=== PATIENT | female | born 1955 | race Caucasian/White ===

== ENCOUNTER 2023-03-31 22:57 | Inpatient (IN) ==
[2023-03-31] MEDS ORDERED: SODIUM CHLORIDE 0.9% 500 ML IV ONE (23:12)
[2023-03-31 23:39] LABS: Hematocrit (blood only) 41.4 % (37.0-47.0); Hemoglobin 14.1 g/dl (12.0-16.0); Mean Corpuscular Hemoglobin 30.6 pg (25.0-34.0); Mean Corpuscular Hgb Conc 34.1 g/dL (32.0-36.0); Mean Corpuscular Volume 89.8 fL (80.0-100.0); Mean Platelet Volume 9.8 fL (9.4-12.4); Platelet Count 295 K/uL (130-400); RDW Coefficient of Variation 12.3 % (11.5-14.5); RDW Standard Deviation 40.7 fL (36.4-46.3); Red Blood Count 4.61 M/uL (4.20-5.40)
[2023-03-31 23:46] LABS: Albumin Globulin Ratio 1.2 (0.9-2); Albumin Level 4.5 gm/dl (3.4-5.0); Bilirubin,Total 0.6 mg/dl (0.2-1.0); Calcium 9.4 mg/dl (8.6-10.3); Creatinine Clr Calc Pharmacy 64.8 ml/min; Est GFR (African American) 106.1 ml/min; Est GFR (Non-African American) 91.5 ml/min; Globulin 3.7 gm/dl (2.5-4.0); Magnesium 1.7 mg/dl (1.7-2.4); Potassium 3.4 mmol/L (3.5-5.1); Total Protein 8.2 gm/dl (6.0-8.3)
[2023-03-31 23:56] LABS: Partial Thromboplastin Ratio 0.9; Partial Thromboplastin Time 26.5 Seconds (21.0-31.0); Prothrombin Time 11.1 Seconds (9.0-12.0)
--- NOTE | 2023-04-01 00:10 | CT Scan Report ---
Exam(s): CT HEAD Without Contrast EXAM: CT Head Without Intravenous Contrast CLINICAL HISTORY: Reason for exam: ams last normal 0700. TECHNIQUE: Axial computed tomography images of the head/brain without intravenous contrast. CTDI is 35.92 mGy and DLP is 547.75 mGy-cm. Automated exposure control was utilized for the study. A dose lowering technique was utilized adhering to the principles of ALARA. COMPARISON: Comparison made to prior head CT from March 11, 2013. FINDINGS: Brain: Unremarkable. No hemorrhage. Mild to moderate nonspecific white matter changes. No edema. Ventricles: Unremarkable. No ventriculomegaly. Bones/joints: Unremarkable. No acute fracture. Soft tissues: Unremarkable. Sinuses: Unremarkable as visualized. No acute sinusitis. Mastoid air cells: Unremarkable as visualized. No mastoid effusion. IMPRESSION: No evidence of acute intracranial pathology. Communications: Call Doctor Stroke Electronically signed by: Jie Rosa MD 04/01/23 00:09 AM
[2023-04-01 00:15] LABS: Appearance Urine Cloudy (Clear); Bacteria Urine Automated Negative (Negative); Bilirubin Urine Negative (Negative); Blood Urine Trace (Negative); Cast Urine Automated 0 /lpf (0-5); Color Urine Yellow; Epithelial Cell Urine Auto 0-5 /lpf (0-5); Glucose Urine UA Trace (Negative); Ketones Urine 1+ (Negative); Leukocyte Esterase Urine Negative (Negative); Nitrite Urine Negative (Negative); Specific Gravity Urine 1.016 (1.000-1.030); Urobilinogen Urine Negative (Negative); WBC Urine Automated 0 /hpf (0-5)
[2023-04-01] MEDS ORDERED: ONDANSETRON INJ 2 MG/ML 2 ML VIAL ONE (00:15)
--- NOTE | 2023-04-01 00:16 | CT Scan Report ---
Exam(s): CTA HEAD With Contrast IV Amt: 120 ml EXAM: CT Angiography Head With Intravenous Contrast CLINICAL HISTORY: Reason for exam: ams weakness last normal 0700. TECHNIQUE: Axial computed tomographic angiography images of the head with intravenous contrast. CTDI is 20.76 mGy and DLP is 381.63 mGy-cm. Automated exposure control was utilized for the study. A dose lowering technique was utilized adhering to the principles of ALARA. MIP reconstructed images were created and reviewed. CONTRAST: Patient received 120 ml of IV contrast COMPARISON: No relevant prior studies available. FINDINGS: Right internal carotid artery: No acute findings. Intracranial segment is patent with no significant stenosis. No aneurysm. Right anterior cerebral artery: Unremarkable. No occlusion or significant stenosis. No aneurysm. Right middle cerebral artery: Unremarkable. No occlusion or significant stenosis. No aneurysm. Right posterior cerebral artery: Unremarkable. No occlusion or significant stenosis. No aneurysm. Right vertebral artery: Unremarkable as visualized. Left internal carotid artery: No acute findings. Intracranial segment is patent with no significant stenosis. No aneurysm. Left anterior cerebral artery: Unremarkable. No occlusion or significant stenosis. No aneurysm. Left middle cerebral artery: Unremarkable. No occlusion or significant stenosis. No aneurysm. Left posterior cerebral artery: Unremarkable. No occlusion or significant stenosis. No aneurysm. Left vertebral artery: Unremarkable as visualized. Basilar artery: Unremarkable. No occlusion or significant stenosis. No aneurysm. IMPRESSION: Negative CT angiogram of the head. Communications: Call Doctor Stroke Electronically signed by: Jie Rosa MD 04/01/23 00:15 AM
--- NOTE | 2023-04-01 00:19 | CT Scan Report ---
Exam(s): CTA NECK With Contrast IV Amt: 120 ml EXAM: CT Angiography Neck With Intravenous Contrast CLINICAL HISTORY: Reason for exam: ams weakness last normal 0700. TECHNIQUE: Routine carotid CT angiography protocol was performed with intravenous contrast. NASCET criteria using the distal ICAs for comparison were used for evaluation of stenoses. CTDI is 20.76 mGy and DLP is 381.63 mGy-cm. Automated exposure control was utilized for the study. A dose lowering technique was utilized adhering to the principles of ALARA. MIP reconstructed images were created and reviewed. CONTRAST: Patient received 120 ml of IV contrast COMPARISON: None. FINDINGS: VASCULATURE: Right common carotid artery: Unremarkable. No occlusion or significant stenosis. No dissection. Right internal carotid artery: Unremarkable. Extracranial segment is patent with no occlusion or significant stenosis. No dissection. Right external carotid artery: Unremarkable. No occlusion. Right vertebral artery: Unremarkable. No occlusion or significant stenosis. No dissection. Left common carotid artery: Unremarkable. No occlusion or significant stenosis. No dissection. Left internal carotid artery: Unremarkable. Extracranial segment is patent with no occlusion or significant stenosis. No dissection. Left external carotid artery: Unremarkable. No occlusion. Left vertebral artery: Unremarkable. No occlusion or significant stenosis. No dissection. NECK: Bones/joints: Moderate disc degeneration at this C3-4, C4-5 and C5-6. Soft tissues: Unremarkable. Lung apices: Clear. CAROTID STENOSIS REFERENCE USING NASCET CRITERIA: % ICA stenosis = (1 - narrowest ICA diameter/diameter of distal cervical ICA) x 100. Mild - <50% stenosis. Moderate - 50-69% stenosis. Severe - 70-94% stenosis. Near occlusion - 95-99% stenosis. Occluded - 100% stenosis. IMPRESSION: Negative CTA neck. Communications: Call Doctor Stroke Electronically signed by: Jie Rosa MD 04/01/23 00:18 AM
[2023-04-01 00:27] LABS: Base Excess VBG 3.6 mEq/L; HCO3 VBG 30 mmol/L; Oxygen Saturation VBG < 60.0 %; PCO2 VBG 52 mmHg (38-50); PO2 VBG 27 mmHg; pH VBG 7.37 (7.36-7.41)
[2023-04-01 00:47] LABS: Protein Urine 2+ (Negative)
[2023-04-01 00:54] LABS: Creatine Kinase 173 U/L (26-192); Lipase 46 U/L (11-82)
[2023-04-01 01:04] LABS: Adenovirus PCR Not Detected (NotDetected); Bordetella parapertussis PCR Not Detected (NotDetected); Bordetella pertussis PCR Not Detected (NotDetected); Chlamydia pneumoniae PCR Not Detected (NotDetected); Coronavirus 229E PCR Not Detected (NotDetected); Coronavirus CoV-2 (COVID19)PCR Not Detected (NotDetected); Coronavirus HKU1 PCR Not Detected (NotDetected); Coronavirus NL63 PCR Not Detected (NotDetected); Coronavirus OC43PCR Not Detected (NotDetected); Human Metapneumovirus PCR Not Detected (NotDetected); Influenza A PCR Not Detected (NotDetected); Influenza B PCR Not Detected (NotDetected); Mycoplasma pneumoniae PCR Not Detected (NotDetected); Parainfluenza Virus 1 PCR Not Detected (NotDetected); Parainfluenza Virus 2 PCR Not Detected (NotDetected); Parainfluenza Virus 3 PCR Not Detected (NotDetected); Parainfluenza Virus 4 PCR Not Detected (NotDetected); Respiratory Syncytial VirusPCR Not Detected (NotDetected); Rhinovirus/Enterovirus PCR Not Detected (NotDetected)
[2023-04-01 01:13] LABS: Procalcitonin < 0.05 ng/ml (0-0.5)
[2023-04-01 01:20] LABS: Lyme Ab IgG w/WB Rflx Negative (Negative); Lyme Ab IgM w/WB Rflx Negative (Negative)
[2023-04-01] MEDS ORDERED: ACETAMINOPHEN 1,000 MG/100 ML VIAL IV STA (01:24)
[2023-04-01] MEDS ORDERED: SODIUM CHLORIDE 0.9% 1000ML 1,000 ML IV ONE (01:24)
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
[2023-04-01] MEDS ORDERED: LIDOCAINE 1%/EPINEPHRINE 1:100,000 20 ML VIAL ONE (01:34)
[2023-04-01] MEDS ORDERED: MoRPHine SULFATE 4 MG/ML 1 ML CARP\\VIAL ONE (01:34)
[2023-04-01] MEDS ORDERED: MoRPHine SULFATE 4 MG/ML 1 ML CARP\\VIAL IV STA (01:37)
[2023-04-01] MEDS ORDERED: NSS + 20MEQ KCL 20 MEQ/1,000 ML BAG IV STA (02:07)
[2023-04-01] MEDS ORDERED: ASPIRIN 300 MG SUPP PR STA (03:08)
[2023-04-01] MEDS: MAGNESIUM SULFATE / D5W 1 GM/100 ML BAG IV SCH ×2 (03:13→06:09)
--- NOTE | 2023-04-01 03:35 | History & Physical Report ---
Date of Service April 01, 2023 Assessment & Plan (1) Left-sided weakness: Plan: Concern for CVA Hypertensive crisis secondary to above Hyperglycemia rule out DM PCU Neurochecks Aspirin for secondary stroke prevention MRI brain Re: Left-sided weakness and headache Permissive hypertension until acute stroke ruled out Neurology consult Re: Left-sided weakness (ER provider already in touch with Dr. Boyd who recommends stroke work-up. Patient may need LP/infectious work-up if MRI negative for stroke as per recommendations.) Check hemoglobin A1c DVT prophylaxis with Lovenox subcu Full code Text document was generated using [employer] voice recognition software. It may contain grammatical or spelling errors. Kindly contact undersigned for clarification of any documentation item in question. History of Present Illness Chief Complaint: Confusion, left-sided weakness Primary Care Provider: NO PCP No significant medical history. History obtained from patient, family, and records. Limited history from patient secondary to confusion. No significant medical history. Patient found by at home around 5 PM yesterday looked confused. Patient had trouble speaking and difficulty moving the left side of her body. Right-sided headache/neck pain. No fever, no chills. Patient denies chest pain, SOB. No witnessed seizures or obvious tongue trauma or urinary incontinence. Not sure about tick bites but patient was working in the [place]. Patient brought to the ER for evaluation. Medical History as above Surgical History : None Family History : DM Personal/Social history : Non-smoker, no EtOH intake, [employer] homemaker Allergies Allergy/AdvReac Type Severity Reaction Status Date / Time No Known Allergies Allergy Verified 04/01/23 01:23 Home Medications Medication Instructions Recorded Confirmed Type No Known Home Medications 04/01/23 04/01/23 History Past Med/Surg History Social History Smoking Status: Never smoker Hx Alcohol Use: No Hx Substance Use: No Preferred Language: [place] [employer] Required: No Current Living Situation: Spouse Feels Safe at Home: Yes Review of Systems Review of Systems: Could not be reliably obtained secondary to disorientation Physical Exam Physical Exam: GENERAL: Uncomfortable, disoriented, underweight, dysarthric, no respiratory distress SKIN: Normal color, warm HEENT: [place] palpebral conjunctivae, no ptosis, dry buccal mucosa NECK : Supple, no tenderness CHEST : CTA, no tenderness HEART : RRR, no obvious murmurs ABDOMEN: no distention, nontender EXTREMITIES : No LE swelling/tenderness, no other conspicuous deformities noted NEUROLOGIC : Disoriented, no facial asymmetry, MMTS RUE/RLE 4/5, LUE 1/5, LLE 3/5, gait and stance not assessed Results & Data Results & Data Vital Signs (Past 12 Hours) Vital Signs Temp Pulse Pulse Resp BP Pulse Ox O2 Del Method 04/01/23 01:42 87 18 178/102 H 97 Room Air 04/01/23 01:00 101 H 18 04/01/23 00:33 86 21 168/90 H 97 Room Air 04/01/23 00:30 82 22 97 Room Air 04/01/23 00:02 94 H 24 175/114 H 04/01/23 00:22 37.4 C 03/31/23 23:25 84 95 Room Air 03/31/23 23:09 116 H 03/31/23 23:14 36.8 C 118 H 22 183/125 H 93 Room Air Laboratory Results Laboratory Results WBC 17.00 K/ul (4.8-10.8) H 03/31/23 23:05 RBC 4.61 M/uL (4.20-5.40) 03/31/23 23:05 Hgb 14.1 g/dl (12.0-16.0) 03/31/23 23:05 Hct 41.4 % (37.0-47.0) 03/31/23 23:05 MCV 89.8 fL (80.0-100.0) 03/31/23 23:05 MCH 30.6 pg (25.0-34.0) 03/31/23 23:05 MCHC 34.1 g/dL (32.0-36.0) 03/31/23 23:05 RDW Std Deviation 40.7 fL (36.4-46.3) 03/31/23 23:05 RDW Coeff of Alyssa 12.3 % (11.5-14.5) 03/31/23 23:05 Plt Count 295 K/uL (130-400) 03/31/23 23:05 MPV 9.8 fL (9.4-12.4) 03/31/23 23:05 PT 11.1 Seconds (9.0-12.0) 03/31/23 23:05 INR 1.0 (0.9-1.1) 03/31/23 23:05 APTT 26.5 Seconds (21.0-31.0) 03/31/23 23:05 PTT Ratio 0.9 03/31/23 23:05 VBG pH 7.37 (7.36-7.41) 04/01/23 00:15 VBG pCO2 52 mmHg (38-50) H 04/01/23 00:15 VBG pO2 27 mmHg 04/01/23 00:15 VBG HCO3 30 mmol/L 04/01/23 00:15 VBG O2 Saturation < 60.0 % 04/01/23 00:15 VBG Base Excess 3.6 mEq/L 04/01/23 00:15 Sodium 129 mmol/L (136-145) L 03/31/23 23:05 Potassium 3.4 mmol/L (3.5-5.1) L 03/31/23 23:05 Chloride 92 mmol/L (98-107) L 03/31/23 23:05 Carbon Dioxide 26 mmol/L (21-32) 03/31/23 23:05 Anion Gap 11 (3-11) 03/31/23 23:05 BUN 12 mg/dl (6-23) 03/31/23 23:05 Creatinine 0.63 mg/dl (0.6-1.2) 03/31/23 23:05 Est Cr Clr Drug Dosing 64.8 ml/min 03/31/23 23:05 Est GFR ( Amer) 106.1 ml/min 03/31/23 23:05 Est GFR (Non-Af Amer) 91.5 ml/min 03/31/23 23:05 BUN/Creatinine Ratio 19.0 (10-20) 03/31/23 23:05 Glucose 183 mg/dl (70-99(Fasting)) H 03/31/23 23:05 Lactate 1.9 mmol/L (0.4-2.0) 04/01/23 02:19 Calcium 9.4 mg/dl (8.6-10.3) 03/31/23 23:05 Magnesium 1.7 mg/dl (1.7-2.4) 03/31/23 23:05 Total Bilirubin 0.6 mg/dl (0.2-1.0) 03/31/23 23:05 AST 26 U/L (13-39) 03/31/23 23:05 ALT 17 U/L (7-52) 03/31/23 23:05 Alkaline Phosphatase 72 U/L (34-104) 03/31/23 23:05 Ammonia 14.0 umol/L (18-72) L 04/01/23 00:15 Total Creatine Kinase 173 U/L (26-192) 04/01/23 00:17 Total Creatine Kinase Cancelled 04/01/23 00:17 Total Protein 8.2 gm/dl (6.0-8.3) 03/31/23 23:05 Albumin 4.5 gm/dl (3.4-5.0) 03/31/23 23:05 Globulin 3.7 gm/dl (2.5-4.0) 03/31/23 23:05 Albumin/Globulin Ratio 1.2 (0.9-2) 03/31/23 23:05 Lipase 46 U/L (11-82) 04/01/23 00:17 Procalcitonin < 0.05 ng/ml (0-0.5) 04/01/23 00:05 TSH 0.718 uIu/ml (0.300-4.500) 04/01/23 02:14 Prolactin 11.53 ng/ml 03/31/23 23:05 Urine Color Yellow 04/01/23 00:00 Urine Appearance Cloudy (Clear) A 04/01/23 00:00 Urine pH 8.0 (4.5-7.5) H 04/01/23 00:00 Ur Specific [place] 1.016 (1.000-1.030) 04/01/23 00:00 Urine Protein 2+ (Negative) H 04/01/23 00:00 Urine Glucose (UA) Trace (Negative) H 04/01/23 00:00 Urine Ketones 1+ (Negative) H 04/01/23 00:00 Urine Blood Trace (Negative) H 04/01/23 00:00 Urine Nitrite Negative (Negative) 04/01/23 00:00 Urine Bilirubin Negative (Negative) 04/01/23 00:00 Urine Urobilinogen Negative (Negative) 04/01/23 00:00 Ur Leukocyte Esterase Negative (Negative) 04/01/23 00:00 Urine WBC (Auto) 0 /hpf (0-5) 04/01/23 00:00 Urine RBC (Auto) 5-10 /hpf (0-4) H 04/01/23 00:00 U Hyaline Cast (Auto) 0 /lpf (0-5) 04/01/23 00:00 U Epithel Cells (Auto) 0-5 /lpf (0-5) 04/01/23 00:00 Urine Bacteria (Auto) Negative (Negative) 04/01/23 00:00 Adenovirus (PCR) Not Detected (NotDetected) 04/01/23 00:05 Anaplasma Smear See Comment 03/31/23 23:05 Babesia Smear See Comment 03/31/23 23:05 B. pertussis DNA (PCR) Not Detected (NotDetected) 04/01/23 00:05 B.parapertussis DNA PCR Not Detected (NotDetected) 04/01/23 00:05 Lyme Disease IgG Ab Negative (Negative) 04/01/23 00:05 Lyme Disease IgM Ab Negative (Negative) 04/01/23 00:05 C. pneumoniae DNA (PCR) Not Detected (NotDetected) 04/01/23 00:05 Coronavirus OC43 (PCR) Not Detected (NotDetected) 04/01/23 00:05 Coronavirus HKU1 (PCR) Not Detected (NotDetected) 04/01/23 00:05 Coronavirus 229E (PCR) Not Detected (NotDetected) 04/01/23 00:05 SARS-CoV-2 (PCR) Not Detected (NotDetected) 04/01/23 00:05 Coronavirus NL63 (PCR) Not Detected (NotDetected) 04/01/23 00:05 Human Metapneumovir PCR Not Detected (NotDetected) 04/01/23 00:05 Influenza Type A (PCR) Not Detected (NotDetected) 04/01/23 00:05 Influenza Type B (PCR) Not Detected (NotDetected) 04/01/23 00:05 M. pneumoniae (PCR) Not Detected (NotDetected) 04/01/23 00:05 Parainfluenza 1 (PCR) Not Detected (NotDetected) 04/01/23 00:05 Parainfluenza 2 (PCR) Not Detected (NotDetected) 04/01/23 00:05 Parainfluenza 3 (PCR) Not Detected (NotDetected) 04/01/23 00:05 Parainfluenza 4 (PCR) Not Detected (NotDetected) 04/01/23 00:05 RSV (PCR) Not Detected (NotDetected) 04/01/23 00:05 Entero/Rhino (PCR) Not Detected (NotDetected) 04/01/23 00:[address] 03/31/23 23:26 CR Exam(s): CT HEAD Without Contrast EXAM: CT Head Without Intravenous Contrast CLINICAL HISTORY: Reason for exam: ams last normal 0700. TECHNIQUE: Axial computed tomography images of the head/brain without intravenous contrast. CTDI is 35.92 mGy and DLP is 547.75 mGy-cm. Automated exposure control was utilized for the study. A dose lowering technique was utilized adhering to the principles of ALARA. COMPARISON: Comparison made to prior head CT from March 11, 2013. FINDINGS: Brain: Unremarkable. No hemorrhage. Mild to moderate nonspecific white matter changes. No edema. Ventricles: Unremarkable. No ventriculomegaly. Bones/joints: Unremarkable. No acute fracture. Soft tissues: Unremarkable. Sinuses: Unremarkable as visualized. No acute sinusitis. Mastoid air cells: Unremarkable as visualized. No mastoid effusion. IMPRESSION: No evidence of acute intracranial pathology. Communications: Call Doctor Stroke Electronically signed by: Jie Rosa MD 04/01/23 00:09 AM Head CTA 03/31/23 23:35 CR Exam(s): CTA HEAD With Contrast IV Amt: 120 ml EXAM: CT Angiography Head With Intravenous Contrast CLINICAL HISTORY: Reason for exam: ams weakness last normal 07. TECHNIQUE: Axial computed tomographic angiography images of the head with intravenous contrast. CTDI is 20.76 mGy and DLP is 381.63 mGy-cm. Automated exposure control was utilized for the study. A dose lowering technique was utilized adhering to the principles of ALARA. MIP reconstructed images were created and reviewed. CONTRAST: Patient received 120 ml of IV contrast COMPARISON: No relevant prior studies available. FINDINGS: Right internal carotid artery: No acute findings. Intracranial segment is patent with no significant stenosis. No aneurysm. Right anterior cerebral artery: Unremarkable. No occlusion or significant stenosis. No aneurysm. Right middle cerebral artery: Unremarkable. No occlusion or significant stenosis. No aneurysm. Right posterior cerebral artery: Unremarkable. No occlusion or significant stenosis. No aneurysm. Right vertebral artery: Unremarkable as visualized. Left internal carotid artery: No acute findings. Intracranial segment is patent with no significant stenosis. No aneurysm. Left anterior cerebral artery: Unremarkable. No occlusion or significant stenosis. No aneurysm. Left middle cerebral artery: Unremarkable. No occlusion or significant stenosis. No aneurysm. Left posterior cerebral artery: Unremarkable. No occlusion or significant stenosis. No aneurysm. Left vertebral artery: Unremarkable as visualized. Basilar artery: Unremarkable. No occlusion or significant stenosis. No aneurysm. IMPRESSION: Negative CT angiogram of the head. Communications: Call Doctor Stroke Electronically signed by: Jie Rosa MD 04/01/23 00:15 AM Neck CTA 03/31/23 23:35 CR Exam(s): CTA NECK With Contrast IV Amt: 120 ml EXAM: CT Angiography Neck With Intravenous Contrast CLINICAL HISTORY: Reason for exam: ams weakness last normal 0700. TECHNIQUE: Routine carotid CT angiography protocol was performed with intravenous contrast. NASCET criteria using the distal ICAs for comparison were used for evaluation of stenoses. CTDI is 20.76 mGy and DLP is 381.63 mGy-cm. Automated exposure control was utilized for the study. A dose lowering technique was utilized adhering to the principles of ALARA. MIP reconstructed images were created and reviewed. CONTRAST: Patient received 120 ml of IV contrast COMPARISON: None. FINDINGS: VASCULATURE: Right common carotid artery: Unremarkable. No occlusion or significant stenosis. No dissection. Right internal carotid artery: Unremarkable. Extracranial segment is patent with no occlusion or significant stenosis. No dissection. Right external carotid artery: Unremarkable. No occlusion. Right vertebral artery: Unremarkable. No occlusion or significant stenosis. No dissection. Left common carotid artery: Unremarkable. No occlusion or significant stenosis. No dissection. Left internal carotid artery: Unremarkable. Extracranial segment is patent with no occlusion or significant stenosis. No dissection. Left external carotid artery: Unremarkable. No occlusion. Left vertebral artery: Unremarkable. No occlusion or significant stenosis. No dissection. NECK: Bones/joints: Moderate disc degeneration at this C3-4, C4-5 and C5-6. Soft tissues: Unremarkable. Lung apices: Clear. CAROTID STENOSIS REFERENCE USING NASCET CRITERIA: % ICA stenosis = (1 - narrowest ICA diameter/diameter of distal cervical ICA) x 100. Mild - <50% stenosis. Moderate - 50-69% stenosis. Severe - 70-94% stenosis. Near occlusion - 95-99% stenosis. Occluded - 100% stenosis. IMPRESSION: Negative CTA neck. Communications: Call Doctor Stroke Electronically signed by: Jie Rosa MD 04/01/23 00:18 AM Diagnostic Findings Chest x-ray as per my interpretation hyperinflation EKG could not be located at time of dictation
[2023-04-01] MEDS ORDERED: PROMETHAZINE HCL 6.25 MG in SODIUM CHLORIDE 0.9% 50 ML IV PRN (03:42)
[2023-04-01] MEDS ORDERED: ACETAMINOPHEN 1,000 MG/100 ML VIAL IV PRN (03:42)
[2023-04-01 04:15] LABS: Basophils # (auto) 0.03 K/uL (0-0.2); Basophils % (auto) 0.2 %; Immature Granulocytes # (auto) 0.06 K/uL (0.01-0.20); Immature Granulocytes % (auto) 0.4 %; Lymphocytes # (auto) 0.74 K/uL (1.2-3.4); Lymphocytes % (auto) 4.4 %; Monocytes # (auto) 0.17 K/uL (0.11-0.59); Neutrophils # (auto) 15.68 K/uL (1.40-6.50); RBC Morphology Unremarkable
[2023-04-01] MEDS ORDERED: METOPROLOL TARTRATE 1 MG/ML VIAL IV STA ×2 (04:15→06:23)
[2023-04-01] MEDS ORDERED: OLANZapine 10 MG/2.1 ML SDV IM PRN (04:37)
[2023-04-01] MEDS ORDERED: OLANZapine 10 MG/2.1 ML SDV IM ONE (04:42)
[2023-04-01] MEDS ORDERED: OLANZapine 10 MG/2.1 ML SDV IM STA (04:42)
[2023-04-01] MEDS: HEPARIN SOD 5,000 UNIT/0.5 ML VIAL SQ SCH ×3 (06:38→23:16)
--- NOTE | 2023-04-01 06:41 | CT Scan Report ---
Exam(s): CT HEAD Without Contrast EXAM: CT Head Without Intravenous Contrast CLINICAL HISTORY: Reason for exam: worsening confusion. TECHNIQUE: Axial computed tomography images of the head/brain without intravenous contrast. Automated exposure control was utilized for the study. A dose lowering technique was utilized adhering to the principles of ALARA. COMPARISON: Comparison made to prior noncontrast head CT from March 31, 2023. FINDINGS: Brain: The blood vessels are uniformly dense consistent with recent contrast administration. No hemorrhage. Moderate nonspecific white matter changes. No edema. Vertebral basilar dolichoectasia. Ventricles: Unremarkable. No ventriculomegaly. Bones/joints: Unremarkable. No acute fracture. Soft tissues: Findings concerning for thyroid ophthalmopathy, which can be seen in the setting of Graves' disease. Sinuses: Unremarkable as visualized. No acute sinusitis. Mastoid air cells: Unremarkable as visualized. No mastoid effusion. IMPRESSION: No evidence of acute intracranial pathology. Electronically signed by: Jie Rosa MD 04/01/23 06:40 AM
[2023-04-01] MEDS ORDERED: CARBOHYDRATES FOR HYPOGLYCEMIA PO PRN (07:08)
[2023-04-01] MEDS ORDERED: DEXTROSE 50% 50 ML SYRINGE IV PRN (07:08)
[2023-04-01] MEDS ORDERED: GLUCOSE 40% GEL 15 GM TUBE PO PRN (07:08)
[2023-04-01] MEDS ORDERED: GLUCOSE 10 TAB/TUBE PO PRN (07:08)
[2023-04-01] MEDS ORDERED: GLUCAGON FOR INJ 1 MG VIAL SQ PRN (07:08)
[2023-04-01 07:19] LABS: Hematocrit (blood only) 42.3 % (37.0-47.0); Hemoglobin 14.6 g/dl (12.0-16.0); Mean Corpuscular Hemoglobin 30.8 pg (25.0-34.0); Mean Corpuscular Hgb Conc 34.5 g/dL (32.0-36.0); Mean Corpuscular Volume 89.2 fL (80.0-100.0); Mean Platelet Volume 9.6 fL (9.4-12.4); Platelet Count 292 K/uL (130-400); RDW Coefficient of Variation 12.3 % (11.5-14.5); RDW Standard Deviation 40.2 fL (36.4-46.3); Red Blood Count 4.74 M/uL (4.20-5.40); White Blood Count 16.05 K/ul (4.8-10.8)
[2023-04-01] MEDS ORDERED: INSULIN ASPART PER UNIT CHARGE SC SCH (07:30)
[2023-04-01 07:43] LABS: Basophils # (auto) 0.01 K/uL (0-0.2); Basophils % (auto) 0.1 %; Immature Granulocytes # (auto) 0.05 K/uL (0.01-0.20); Immature Granulocytes % (auto) 0.3 %; Lymphocytes # (auto) 0.97 K/uL (1.2-3.4); Monocytes % (auto) 3.1 %; Neutrophils # (auto) 14.52 K/uL (1.40-6.50); Neutrophils % (auto) 90.5 %
[2023-04-01 07:49] LABS: BUN Creatinine Ratio 13.1 (10-20); Calcium 9.2 mg/dl (8.6-10.3); Chol HDL Ratio 2.3 (0-5); Creatinine Clr Calc Pharmacy 62.5 ml/min; Est GFR (African American) 107.2 ml/min; Est GFR (Non-African American) 92.5 ml/min; Potassium 3.5 mmol/L (3.5-5.1)
--- NOTE | 2023-04-01 08:03 | XRay Report ---
XR chest 1V portable HISTORY: stroke alert COMPARISON: 03/11/2013. FINDINGS: The lungs are clear. The heart is normal in size. No pleural effusions. No pneumothorax. Th ere are old, healed left-sided rib fractures. Emphysema again noted. IMPRESSION: Emphysema. Otherwise, no acute process within the chest. ACT 112: Negative or not required by law. Electronically signed by: Ray Rosado M.D. 04/01/2023 8:02 AM
[2023-04-01] MEDS ORDERED: Nursing to Pharmacy Communication SCH (08:15)
[2023-04-01 08:16] LABS: Estimated Average Glucose 120 mg/dl; Hemoglobin A1C 5.8 % (4.5-5.6)
[2023-04-01] MEDS: INSULIN ASPART PER UNIT CHARGE SC SCH ×3 (09:04→18:43)
--- NOTE | 2023-04-01 09:36 | Neurology Consultation ---
Date of Consultation April 01, 2023 Assessment & Plan (1) Left-sided weakness: (2) Stroke-like symptoms: (3) Leukocytosis: Plan Probable right hemispheric stroke characterized by left-sided weakness and altered mental status with significant agitation overnight, treated with [place]. Patient is lethargic to obtunded this morning and continues to exhibit a left hemiparesis on examination. She does have a low-grade fever this morning and has a mild to moderate leukocytosis but no obvious signs of infection on urinalysis or chest x-ray. Blood cultures are pending. No obvious acute process on CT of the head or CT angiography of the head and neck including a repeat CT of the head done overnight. She does have chronic small vessel ischemic disease. (I also note decreased arborization of the right periinsular vessels on CTA of the head that may be consistent with reduced distal right MCA circulation.) Follow-up with results of brain MRI. Again, I suspect a right hemispheric stroke. Agree with aspirin 81 mg/day as ordered. Would order a transthoracic echocardiogram with bubble study. Would order a standard electrocardiogram. Continue to monitor for possible atrial fibrillation. Follow-up with results of blood cultures. Continue to evaluate for possible source of infection. Consider lumbar puncture if MRI suggestive of infection or inflammation (rule out HSV). In that context would also recommend broad-spectrum antimicrobial therapy including acyclovir. (However, clinical suspicion for HSV encephalitis or meningitis low at this time, yet not completely excluded.) History of Present Illness Reason for Consultation: left sided weakness Requesting Physician: Wilbur Monteiro MD Attending Physician: Hill Pitt MD History of Present Illness The patient is a 67-year-old [facility] female with no known significant past medical history who presented to the emergency department overnight with altered mental status and left-sided weakness. She had been working outside and was found to be confused by her at around 5 PM. She had difficulty speaking and moving the left arm and leg. No reported seizure or head injury. She was initially afebrile but has a slight fever this morning. She has been hypertensive. She had an unremarkable initial CT of the head and CT angiogram of the head and neck. A follow-up noncontrast CT of the head completed overnight for confusion is negative for acute pathology. I did independently review these images. There is evidence of chronic small vessel ischemic disease with some subtle areas of radiolucency within the white matter of the right MCA territory that appear unchanged on follow-up CT of the head. A brain MRI has been ordered and should be completed later this morning. She has a mild to moderate leukocytosis. She is mildly hyponatremic. Normal renal function. Glucose modestly elevated. Ammonia level normal. TSH and prolactin normal. Normal Lyme screen. No signs of pneumonia on chest x-ray. Normal urinalysis. Patient was agitated overnight and did receive Zyprexa. She is difficult to arouse this morning. History corroborated by her family at bedside. Allergies Allergy/AdvReac Type Severity Reaction Status Date / Time No Known Allergies Allergy Verified 04/01/23 01:23 Home Medications Medication Instructions Recorded Confirmed Type No Known Home Medications 04/01/23 04/01/23 History Patient History Social History Smoking Status: Never smoker Hx Alcohol Use: No Hx Substance Use: No Preferred Language: [place] R[employer]ter Required: No Current Living Situation: Spouse Feels Safe at Home: Yes Review of Systems Review of Systems: Unobtainable due to reduced consciousness Exam (Neuro) Constitutional: well developed, + thin and + behavioral limitations Eyes: PERRL and EOM intact bilaterally Cardiovascular: Vessels: no carotid bruit Neurologic: Cranial Nerves: Normal III, IV, and VII Motor Strength: Hemiparesis Laterality: Left Motor Tone: Normal Lower Extremities and Normal Upper Extremities Muscle Bulk/Involuntary Movements: No Involuntary Movements; negative Muscle Atrophy Deep Tendon Reflexes: Rt Triceps: 2+, Lt Triceps: 2+, Rt Biceps: 2+, Lt Biceps: 2+, Rt Brachioradialis: 2+, Lt Brachioradialis: 2+, Rt Patellar: 2+, Lt Patellar: 3+, Rt Ankle: 2+ and Lt Ankle: 2+ Special Tests: Babinski Present Details: Higher integrative cognitive functioning cannot be evaluated due to obtundation. Patient does not open her eyes spontaneously or attempt to speak. She is mildly agitated and is holding the right side of her head with her right hand. She spontaneously moves the right arm and leg but exhibits minimal movement for the left arm and leg. She keeps her head turned toward the left. Limited cranial nerve evaluation as above. Sensation cannot be evaluated although she does withdraw the left leg to plantar stimulation and does have an associated Babinski response. Coordination cannot be evaluated. Gait cannot be tested. Results & Data Vital Signs (Past 12 Hours) Vital Signs Temp Pulse Pulse Resp BP BP Pulse Ox 04/01/23 07:04 76 160/94 H 04/01/23 07:24 37.7 C H 88 20 150/94 H 96 04/01/23 06:49 85 201/111 H 04/01/23 06:22 04/01/23 05:40 04/01/23 06:04 94 H 201/111 H 04/01/23 06:04 36.7 C 87 16 201/111 H 97 04/01/23 04:55 82 24 161/94 H 96 04/01/23 04:51 37.4 C 04/01/23 04:37 106 H 195/113 H 04/01/23 04:00 84 19 205/108 H 96 04/01/23 03:23 90 18 178/120 H 04/01/23 03:00 97 H 19 04/01/23 02:54 89 04/01/23 01:42 87 18 178/102 H 97 04/01/23 01:00 101 H 18 04/01/23 00:33 86 21 168/90 H 97 04/01/23 00:30 82 22 97 04/01/23 00:02 94 H 24 175/114 H 04/01/23 00:22 37.4 C 03/31/23 23:25 84 95 03/31/23 23:09 116 H 03/31/23 23:14 36.8 C 118 H 22 183/125 H 93 Pulse Ox O2 Del Method O2 Del Method 04/01/23 07:04 04/01/23 07:24 Room Air 04/01/23 06:49 04/01/23 06:22 Room Air 04/01/23 05:40 97 Room Air 04/01/23 06:04 04/01/23 06:04 Room Air 04/01/23 04:55 Room Air 04/01/23 04:51 04/01/23 04:37 04/01/23 04:00 Room Air 04/01/23 03:23 04/01/23 03:00 04/01/23 02:54 04/01/23 01:42 Room Air 04/01/23 01:00 04/01/23 00:33 Room Air 04/01/23 00:30 Room Air 04/01/23 00:02 04/01/23 00:22 03/31/23 23:25 Room Air 03/31/23 23:09 03/31/23 23:14 Room Air Laboratory Results WBC 16.05, hemoglobin 14.6, hematocrit 42.3, platelet count 292, sodium 130, potassium 3.5, BUN 8, creatinine 0.61, glucose 157, hemoglobin A1c 5.8, calcium 9.2, magnesium 1.7, AST 26, ALT 17, ammonia 14.0, total CK1 73, triglycerides 36, cholesterol 202, LDL 107, VLDL 7, HDL 88, TSH 0.718, prolactin 11.53 Patient is a sinus rhythm on cardiac monitoring. Imaging as described in the history of present illness. Coding Level of Care Code 75142 INT INP/OBS CARE MIN Diagnoses Left-sided weakness R53.1 Stroke-like symptoms R29.90 Leukocytosis D72.829
[2023-04-01] MEDS ORDERED: GADOBUTROL 65ML VIAL IV ONE (10:04)
--- NOTE | 2023-04-01 10:27 | Magnetic Resonance Report ---
Brain MRI WITH AND WITHOUT CONTRAST HISTORY: Headache. Left-sided weakness. TECHNIQUE: Multiplanar multisequence MRI of the brain was performed both before and after the intrave nous administration of contrast. COMPARISON STUDY: Head CT 04/01/2023. FINDINGS: There is a punctate focus of restricted diffusion seen within the cortex of the right parie laci lobe on image 17. This suggests a punctate acute infarct. The midline structures are intact. The major vascular flow-voids at the skull base are well-maintained. The paranasal sinuses and mastoid ai r cells are clear. The orbits are unremarkable. The ventricles and sulci demonstrate mild age-related involutional changes. There is no mass, hematoma, or midline shift. Patchy T2 hyperintense foci with in the periventricular white matter are nonspecific but favor mild microvascular ischemic changes. Po stcontrast sequences show no areas of abnormal enhancement. IMPRESSION: 1. There is an acute punctate infarct within the right parietal lobe. 2. Mild atrophy and microvascular ischemic changes. ACT 112: Negative or not required by law. Electronically signed by: Ray Rosado M.D. 04/01/2023 10:25 AM
--- NOTE | 2023-04-01 14:15 | Hospitalist Progress Note ---
Date of Service April 01, 2023 Assessment & Plan (1) Left-sided weakness: Plan: Acute CVA --MRI Brain:There is an acute punctate infarct within the right parietal lobe. Mild atrophy and microvascular ischemic changes. --Head CTA:Negative CT angiogram of the head. --Neck CTA:Negative CTA neck. --ECHO: Left ventricle systolic function is normal. EF 60 to 65%. Mild concentric LVH. Aortic valve sclerosis mild, without significant aortic valvular stenosis. Mild tricuspid regurgitation. Prominent distal acute valve is noted. Stephen network is noted. Injection of contrast documented no interatrial shunt. -Lyme serology pending -- Total cholesterol 202, LDL 107. HbA1c 5.8 Started on aspirin, Lipitor Allow permissive hypertension Appreciate neurology input Acute metabolic encephalopathy Likely secondary to above Delirium precautions Reorient frequently Paroxysmal atrial tachycardia Normal TSH Will start on Lopressor as needed for now Replace electrolytes as needed Monitor Hyponatremia Hypochloremia Likely due to poor oral intake Continue IV fluids Monitor Leukocytosis Likely reactive No obvious source of infection Monitor ? Uncontrolled hypertension Will adjust medications as needed Monitor BP Prediabetes HbA1c 5.8 DVT Px: Lovenox SQ Code Status Full code Admission and Anticipated Discharge Date Admission Date: April 01, 2023 Subjective Patient is seen and examined at bedside Unable to provide any history given patient very drowsy during my encounter Received Zyprexa for agitation overnight Discussed with patient's family at bedside Review of Systems Review of Systems: All systems reviewed & are unremarkable except as noted in Subjective Physical Exam Physical Exam: Physical Exam: Vitals signs as noted above General Appearance:Thin, frail, no apparent distress, +Drowsy Head: normocephalic, Atraumatic Eyes: normal inspection, EOMI Neck: supple, Trachea midline Respiratory/Chest: Normal breath sounds, CTA, No accessory muscle use Cardiovascular: S1, S2, No murmur Abdomen/GI:Soft, Non tender, Bowel sounds present Extremities/Musculoskeletal:normal inspection, no edema Neurologic/Psych: Very drowsy, follows simple commands intermittently, left- sided weakness noted Skin: normal color, warm Results & Data Results & Data Vital Signs (Past 12 Hours) Vital Signs Temp Pulse Pulse Resp BP BP BP 04/01/23 12:51 80 04/01/23 11:22 37.6 C H 82 17 178/96 H 04/01/23 07:04 76 160/94 H 04/01/23 07:24 37.7 C H 88 20 150/94 H 04/01/23 06:49 85 201/111 H 04/01/23 06:22 04/01/23 05:40 04/01/23 06:04 94 H 201/111 H 04/01/23 06:04 36.7 C 87 16 201/111 H 04/01/23 04:55 82 24 161/94 H 04/01/23 04:51 37.4 C 04/01/23 04:37 106 H 195/113 H 04/01/23 04:00 84 19 205/108 H 04/01/23 03:23 90 18 178/120 H 04/01/23 03:00 97 H 19 04/01/23 02:54 89 Pulse Ox Pulse Ox O2 Del Method O2 Del Method 04/01/23 12:51 04/01/23 11:22 96 Room Air 04/01/23 07:04 04/01/23 07:24 96 Room Air 04/01/23 06:49 04/01/23 06:22 Room Air 04/01/23 05:40 97 Room Air 04/01/23 06:04 04/01/23 06:04 97 Room Air 04/01/23 04:55 96 Room Air 04/01/23 04:51 04/01/23 04:37 04/01/23 04:00 96 Room Air 04/01/23 03:23 04/01/23 03:00 04/01/23 02:54 Laboratory Results Short CBC 03/31/23 04/01/23 Range/Units 23:05 07:07 WBC 17.00 H 16.05 H (4.8-10.8) K/ul Hgb 14.1 14.6 (12.0-16.0) g/dl Hct 41.4 42.3 (37.0-47.0) % Plt Count 295 292 (130-400) K/uL BMP 03/31/23 04/01/23 23:05 07:07 Sodium 129 L 130 L Potassium 3.4 L 3.5 Chloride 92 L 94 L Carbon Dioxide 26 26 BUN 12 8 Creatinine 0.63 0.61 Glucose 183 H 157 H Calcium 9.4 9.2 Cardiac Enzymes 04/01/23 04/01/23 Range/Units 00:17 00:17 Total Creatine Kinase Cancelled 173 Liver Function 03/31/23 Range/Units 23:05 Total Bilirubin 0.6 (0.2-1.0) mg/dl AST 26 (13-39) U/L ALT 17 (7-52) U/L Alkaline Phosphatase 72 (34-104) U/L Albumin 4.5 (3.4-5.0) gm/dl Urine 04/01/23 Range/Units 00:00 Urine Color Yellow Urine Appearance Cloudy A (Clear) Urine pH 8.0 H (4.5-7.5) Ur Specific [place] 1.016 (1.000-1.030) Urine Protein 2+ H (Negative) Urine Glucose (UA) Trace H (Negative)
[2023-04-01] MEDS ORDERED: METOPROLOL TARTRATE 1 MG/ML VIAL IV PRN (14:31)
[2023-04-01] MEDS ORDERED: MAGNESIUM SULFATE / D5W 1 GM/100 ML BAG IV ONE (14:50)
[2023-04-01] MEDS: POTASSIUM CHLORIDE / WTR 10 MEQ/100 ML PLCT IV SCH ×3 (15:23→17:30)
[2023-04-01] MEDS: METOPROLOL TARTRATE 1 MG/ML VIAL IV PRN (19:12)
[2023-04-01] MEDS: ACETAMINOPHEN IV PRN (20:20)
[2023-04-01] MEDS ORDERED: NSS + 20MEQ KCL 20 MEQ/1,000 ML BAG IV ONE (20:56)
[2023-04-02] MEDS: INSULIN ASPART PER UNIT CHARGE SC SCH ×5 (00:05→23:51)
[2023-04-02] MEDS: METOPROLOL TARTRATE 1 MG/ML VIAL IV PRN ×2 (03:19→11:55)
[2023-04-02] MEDS: HEPARIN SOD 5,000 UNIT/0.5 ML VIAL SQ SCH ×3 (05:52→23:42)
[2023-04-02 07:09] LABS: Hematocrit (blood only) 38.6 % (37.0-47.0); Mean Corpuscular Hemoglobin 31.4 pg (25.0-34.0); Mean Corpuscular Hgb Conc 36.3 g/dL (32.0-36.0); Mean Corpuscular Volume 86.5 fL (80.0-100.0); Mean Platelet Volume 9.8 fL (9.4-12.4); Platelet Count 287 K/uL (130-400); RDW Coefficient of Variation 12.6 % (11.5-14.5); RDW Standard Deviation 39.8 fL (36.4-46.3); Red Blood Count 4.46 M/uL (4.20-5.40); White Blood Count 15.62 K/ul (4.8-10.8)
[2023-04-02 07:31] LABS: BUN Creatinine Ratio 25.4 (10-20); Calcium 9.1 mg/dl (8.6-10.3); Creatinine Clr Calc Pharmacy 53.8 ml/min; Est GFR (African American) 103.9 ml/min; Est GFR (Non-African American) 89.7 ml/min; Potassium 3.9 mmol/L (3.5-5.1)
[2023-04-02] MEDS: ASPIRIN 81 MG ECTAB PO SCH (07:59)
[2023-04-02] MEDS: ATORVASTATIN 40 MG TAB PO SCH (07:59)
[2023-04-02] MEDS: NSS + 20MEQ KCL 20 MEQ/1,000 ML BAG IV SCH (10:00)
--- NOTE | 2023-04-02 11:28 | Neurology Progress Note ---
Date of Service April 02, 2023 Assessment & Plan (1) Cerebrovascular accident (CVA) involving right cerebral hemisphere: (2) Encephalopathy: (3) Left-sided weakness: Plan Persistent encephalopathy and left-sided weakness in the context of a small punctate ischemic infarct of the right parietal lobe identified on brain MRI yesterday. Patient's degree of neurologic deficits remains greater than what would be expected from the observed small infarct on yesterday's MRI. Repeat br n MRI to be completed this morning. I will review and advise further. (If repeat MRI is without significant change, would recommend obtaining a lumbar puncture to exclude meningoencephalitis. In that context, would also recommend broad-spectrum antimicrobial therapy (vancomycin, ampicillin, ceftriaxone, and acyclovir). There has been no observed seizure activity. Would not require an EEG at this time. Admission and Anticipated Discharge Date Admission Date: April 01, 2023 Subjective Follow-up regarding stroke The patient remains obtunded this morning although according to her family at bedside, she was a bit more awake earlier this morning and minimally intera ctive. She continues to exhibit a left hemiparesis with no spontaneous movement of the left arm or leg, continues to hold the right side of her head but now keeps her head turned to the right. She does not respond to questions or follow commands this morning. She does not open her eyes to voice or tactile stimulation. Echocardiogram completed yesterday was negative for cardioembolic source. She was running a low-grade fever yesterday. She is hypertensive. She continues to have a mild to moderate leukocytosis and mild hyponatremia. A repeat noncontrast brain MRI has been ordered for today. Results & Data Vital Signs (Past 12 Hours) Vital Signs Temp Pulse Pulse Resp BP BP Pulse Ox 04/02/23 07:43 85 04/02/23 07:39 37.2 C 82 20 173/99 H 95 04/02/23 05:50 04/02/23 03:48 84 164/93 H 04/02/23 03:19 92 H 180/90 H 04/02/23 03:14 36.4 C L 97 H 18 180/90 H 94 Pulse Ox O2 Del Method O2 Del Method 04/02/23 07:43 04/02/23 07:39 Room Air 04/02/23 05:50 96 Room Air 04/02/23 03:48 04/02/23 03:19 04/02/23 03:14 Room Air Coding Level of Care Code 65047 SUB INP/OBS CARE MIN Diagnoses Cerebrovascular accident (CVA) involving right cerebral hemisphere I63.9 Encephalopathy G93.40 Left-sided weakness R53.1
[2023-04-02] MEDS ORDERED: VANCOMYCIN HCL 750 MG in SODIUM CHLORIDE 0.9% 500 ML IV SCH (14:15)
--- NOTE | 2023-04-02 14:17 | Magnetic Resonance Report ---
MRI OF THE BRAIN WITHOUT IV CONTRAST CLINICAL HISTORY: Stroke COMPARISON STUDY: MRI of the brain dated 04/01/2023. TECHNIQUE: MRI of the brain was performed utilizing various T1 and T2-weighted sequences in the axial , sagittal, and coronal planes. IV contrast was not administered for this examination. FINDINGS: Brain parenchyma: There is age-related involutional change noting moderate to advanced subcortical an d periventricular microangiopathic disease. There is no hemorrhage or mass effect. There is no restri cted diffusion typical for acute ischemia. Addison-white matter differentiation is preserved. No extra-a xial fluid collection is seen. Mineralization is noted in the basal ganglia. The cerebellar tonsils a re normal in configuration. Ventricles, sulci, and cisterns: Prominent secondary to involutional change. Pituitary and sella: Unremarkable. Intracranial vasculature: Normal flow voids are maintained at the skull base. Orbits: The bony orbits are grossly intact. Orbital contents are normal in appearance. Sinuses and mastoids: Clear. Calvarium: Unremarkable. Cervical cord: Partially visualized cervical spinal cord is normal in morphology and signal intensity . IMPRESSION: 1. No acute intracranial abnormality is identified. Specifically, there is no MRI evidence of acute o r subacute infarct. 2. The tiny focus of restricted diffusion questioned in the right parietal lobe on yesterday's examin ation may have been artifactual. This was not corroborated on today's examination. ACT 112: Negative or not required by law. Electronically signed by: Virgilio Anderson M.D. 04/02/2023 2:14 PM
[2023-04-02] MEDS ORDERED: VANCOMYCIN HCL 1,000 MG in SODIUM CHLORIDE 0.9% 250 ML IV ONE (14:45)
[2023-04-02] MEDS: AMPICILLIN 2,000 MG in SODIUM CHLOR 0.9% AD-VAN 100 ML IV SCH ×3 (15:04→23:42)
[2023-04-02] MEDS ORDERED: VANCOMYCIN CONSULT ACTIVE PRN (15:15)
--- NOTE | 2023-04-02 15:33 | Hospitalist Progress Note ---
Date of Service April 02, 2023 Assessment & Plan (1) Left-sided weakness: Plan: Stroke Like Symptoms Acute metabolic Encephalopathy DD: Meningitis/Encephalitis, Less likely seizure, CVA --Initial MRI Brain on 04/01/23:There is an acute punctate infarct within the right parietal lobe. Mild atrophy and microvascular ischemic changes. --Head CTA:Negative CT angiogram of the head. --Neck CTA:Negative CTA neck. --ECHO: Left ventricle systolic function is normal. EF 60 to 65%. Mild concentric LVH. Aortic valve sclerosis mild, without significant aortic valvular stenosis. Mild tricuspid regurgitation. Prominent distal acute valve is noted. Stephen network is noted. Injection of contrast documented no interatrial shunt. --Repeat MRI on 04/02/23:No acute intracranial abnormality is identified. Specifically, there is no MRI evidence of acute or subacute infarct. The tiny focus of restricted diffusion questioned in the right parietal lobe on yesterday's examination may have been artifactual. This was not corroborated on today's examination. -- Total cholesterol 202, LDL 107. --Ammonia 14 --No significant hypercarbia on VBG --Peripheral smear not suggestive of anaplasmosis, Babesia --Anaplasma, Babesia DNA pending --IgM, IgG for Lyme's negative --Other serological test for Lyme's pending HbA1c 5.8 Plan to start on aspirin, Lipitor as able Appreciate Neurology input Continue Neuro Checks Plan for lumbar puncture tomorrow Discussed with neurology today: Advised to start antibiotics, antiviral for possible meningitis/encephalitis obtain EEG. Started on Rocephin, vancomycin, ampicillin, Acyclovir and dexamethasone Further management based on CSF results Paroxysmal atrial tachycardia Normal TSH on Labetalol PRN Replace electrolytes as needed Monitor Hyponatremia Hypochloremia Likely due to poor oral intake Continue IV fluids Sodium 132 today Monitor Leukocytosis CSF studies pending Monitor ? Uncontrolled hypertension IV labetalol PRN for now Monitor BP Prediabetes HbA1c 5.8 DVT Px: Lovenox SQ Code Status Full code Admission and Anticipated Discharge Date Admission Date: April 01, 2023 Subjective Patient is seen and examined at bedside Unable to provide any history given patient is obtunded Didn't receive any sedative meds overnight Repeat MRI not suggestive of CVA Discussed with Radiology and Neurology today Updated patient's family Febrile, persistent leucocytosis Review of Systems Review of Systems: All systems reviewed & are unremarkable except as noted in Subjective Physical Exam Physical Exam: Physical Exam: Vitals signs as noted above General Appearance:Thin, frail, no apparent distress, AMS Head: normocephalic, Atraumatic Eyes: normal inspection, EOMI Neck: supple, Trachea midline Respiratory/Chest: Normal breath sounds, CTA, No accessory muscle use Cardiovascular: S1, S2, No murmur Abdomen/GI:Soft, Non tender, Bowel sounds present Extremities/Musculoskeletal:normal inspection, no edema Neurologic/Psych: Obtunded mostly, seemed to have left sided neglect Skin: normal color, warm Results & Data Results & Data Vital Signs (Past 12 Hours) Vital Signs Temp Pulse Pulse Resp BP BP Pulse Ox 04/02/23 12:10 77 147/97 H 04/02/23 12:10 77 147/97 H 04/02/23 11:18 37.9 C H 87 20 182/107 H 95 04/02/23 07:43 85 04/02/23 07:39 37.2 C 82 20 173/99 H 95 04/02/23 05:50 04/02/23 03:48 84 164/93 H 04/02/23 03:19 92 H 180/90 H Pulse Ox O2 Del Method O2 Del Method 04/02/23 12:10 04/02/23 12:10 04/02/23 11:18 Room Air 04/02/23 07:43 04/02/23 07:39 Room Air 04/02/23 05:50 96 Room Air 04/02/23 03:48 04/02/23 03:19 Laboratory Results Short CBC 04/02/23 Range/Units 06:43 WBC 15.62 H (4.8-10.8) K/ul Hgb 14.0 (12.0-16.0) g/dl Hct 38.6 (37.0-47.0) % Plt Count 287 (130-400) K/uL BMP 04/02/23 06:43 Sodium 132 L Potassium 3.9 Chloride 99 Carbon Dioxide 24 BUN 17 Creatinine 0.67 Glucose 140 H Calcium 9.1
[2023-04-02] MEDS: LABETALOL HCL IV 5 MG/ML 20ML IV PRN (15:46)
[2023-04-02] MEDS: cefTRIAXone SODIUM 2,000 MG in DEXTROSE 5% 50 ML IV SCH (15:47)
[2023-04-02] MEDS: dexAMETHasone 6 MG in SYRINGE 0 ML IV SCH ×2 (15:47→19:12)
--- NOTE | 2023-04-02 15:48 | Pharmacy Report ---
Pharmacy PK ABX Note - Date of Service April 02, 2023 - Assessment and Plan Assessment 67 year old F receiving Vancomycin, Ampicillin, Ceftriaxone and Acyclovir for treatment of possible meningitis. * Day #1 of antimicrobial therapy. * 24 hour Tmax of 38.8oC. Procal and lactate normal. White count of 16k yesterday, 15.6k today. SCr at baseline of 0.67 mg/dL. * Blood cultures are pending. Planning for a lumbar puncture on Monday but this will be after abx started. Plan Vancomycin * Loading dose: 1000 mg IV x 1 * Maintenance dose: 1000 mg IV every 18 hours * Regimen is predicted to achieve target AUC/ALEXI of 400-600 mg/L.hr * Random level ordered for: 04/04/23 Ampicillin * 2000 mg IV every 4 hours - appropriate Ceftriaxone * 2000 mg IV every 12 hours - appropriate Acyclovir * 450 mg (10 mg/kg) IV every 8 hours - appropriate Pharmacy will continue to follow and will adjust dose/frequency as necessary. Thank you. Pharmacy has transitioned to AUC monitoring for vancomycin. AUC/ALEXI is the preferred PK/PD target and is associated with decreased risk of nephrotoxicity compared to traditional trough targets.
[2023-04-02] MEDS: ACYCLOVIR SOD 450 MG in DEXTROSE 5% 250 ML IV SCH ×2 (16:54→23:43)
[2023-04-03] MEDS: dexAMETHasone 6 MG in SYRINGE 0 ML IV SCH ×4 (02:03→20:47)
[2023-04-03] MEDS: ACETAMINOPHEN IV PRN ×2 (02:30→22:35)
[2023-04-03] MEDS: AMPICILLIN 2,000 MG in SODIUM CHLOR 0.9% AD-VAN 100 ML IV SCH ×6 (02:31→22:36)
[2023-04-03] MEDS: cefTRIAXone SODIUM 2,000 MG in DEXTROSE 5% 50 ML IV SCH ×2 (04:24→15:09)
[2023-04-03] MEDS: HEPARIN SOD 5,000 UNIT/0.5 ML VIAL SQ SCH ×3 (05:23→20:47)
[2023-04-03] MEDS: INSULIN ASPART PER UNIT CHARGE SC SCH ×4 (05:23→20:46)
[2023-04-03] MEDS: NSS + 20MEQ KCL 20 MEQ/1,000 ML BAG IV SCH (05:28)
[2023-04-03 06:33] LABS: Base Excess VBG 2.8 mEq/L; HCO3 VBG 26 mmol/L; Oxygen Saturation VBG 94.5 %; PCO2 VBG 35 mmHg (38-50); PO2 VBG 66 mmHg; pH VBG 7.48 (7.36-7.41)
[2023-04-03 06:42] LABS: Hematocrit (blood only) 39.9 % (37.0-47.0); Mean Corpuscular Hemoglobin 30.9 pg (25.0-34.0); Mean Corpuscular Hgb Conc 35.1 g/dL (32.0-36.0); Mean Corpuscular Volume 88.1 fL (80.0-100.0); Mean Platelet Volume 9.8 fL (9.4-12.4); Platelet Count 242 K/uL (130-400); RDW Coefficient of Variation 12.5 % (11.5-14.5); RDW Standard Deviation 40.4 fL (36.4-46.3); Red Blood Count 4.53 M/uL (4.20-5.40); White Blood Count 13.31 K/ul (4.8-10.8)
[2023-04-03 06:52] LABS: BUN Creatinine Ratio 35.6 (10-20); Calcium 9.2 mg/dl (8.6-10.3); Creatinine Clr Calc Pharmacy 49.4 ml/min; Est GFR (African American) 97.4 ml/min; Magnesium 1.9 mg/dl (1.7-2.4); Potassium 3.7 mmol/L (3.5-5.1)
[2023-04-03] MEDS: ACYCLOVIR SOD 450 MG in DEXTROSE 5% 250 ML IV SCH ×3 (07:34→23:05)
[2023-04-03] MEDS: VANCOMYCIN HCL 1,000 MG in SODIUM CHLORIDE 0.9% 250 ML IV SCH (07:41)
[2023-04-03] MEDS: ATORVASTATIN 40 MG TAB PO SCH (08:10)
[2023-04-03] MEDS: ASPIRIN 81 MG ECTAB PO SCH ×2 (08:10→08:11)
[2023-04-03] MEDS ORDERED: ONDANSETRON INJ 2 MG/ML 2 ML VIAL ONE (10:30)
[2023-04-03] MEDS ORDERED: ONDANSETRON INJ 2 MG/ML 2 ML VIAL IV PRN (10:31)
[2023-04-03 11:35] LABS: Total Protein CSF 47.7 mg/dl (15-45)
[2023-04-03 11:52] LABS: Appearance CSF Clear; CSF Count Tube # 3; CSF Xanthrochromic No xanthochromia; Color CSF Colorless; Mononuclear WBC CSF Auto 10.8 %; Polynuclear WBC CSF Auto 89.2 %
--- NOTE | 2023-04-03 12:05 | Fluoroscopy Report ---
IR lumbar puncture diagnostic CLINICAL HISTORY: ?meningitis/Encephalitis COMPARISON STUDY: No previous studies for comparison. Fluoroscopy time: 24 seconds. Number of fluoroscopic images: 1, Reynaldo r: 6.09 mGy. FINDINGS: The procedure, risks and benefits were discussed with the patient's and the patient , including the risk of spinal headache, bleeding and infection. The agreed to the procedure and info rmed written consent was obtained from the patient's given patient's mildly altered mental st atus. The procedure was performed by Dr. Antunez following a timeout. Skin overlying the left L3-L4 interlaminar space was prepped and draped in sterile fashion and local anesthesia achieved with 1% l idocaine. Under intermittent fluoroscopic guidance, a 3 1/2 inch 22-gauge spinal needle was directed into the thecal sac. There was immediate return of slightly blood-tinged CSF. The fluid quickly clear ed. A total of 8 cc was collected in 4 vials and sent to the laboratory for analysis as ordered. The patient tolerated the procedure well and no complications were evident. IMPRESSION: Successful fluoroscopically guided lumbar puncture with collection of 8 cc of CSF, as ab ove. CSF initially blood-tinged but quickly cleared. ACT 112: Negative or not required by law. Electronically signed by: Magdaleno Antunez M.D. 04/03/2023 12:04 PM
[2023-04-03 12:48] LABS: Cryptococcus neoformans/ga PCR Not Detected (NotDetected); Cytomegalovirus PCR Not Detected (NotDetected); Enterovirus PCR Not Detected (NotDetected); Escherichia coli K1 PCR Not Detected (NotDetected); Haemophilius influenzae PCR Not Detected (NotDetected); Herpes Simplex Virus 1 PCR Not Detected (NotDetected); Herpes Simplex Virus 2 PCR Not Detected (NotDetected); Human Herpes Virus 6 PCR Not Detected (NotDetected); Human Parechovirus PCR Not Detected (NotDetected); Listeria monocytogenes PCR Not Detected (NotDetected); Neisseria meningitidis PCR Not Detected (NotDetected); Streptococcus agalactiae PCR Not Detected (NotDetected); Streptococcus pneumoniae PCR Not Detected (NotDetected); Varicella Zoster Virus PCR Not Detected (NotDetected)
--- NOTE | 2023-04-03 16:02 | Electroencephalogram ---
EEG Procedure Note Date of Service April 03, 2023 Start / End Times Start Time: 1321 End Time: [address] Pitt History 67 year old with encephalopathy. Home Medication List Medication Instructions Recorded Confirmed Type No Known Home Medications 04/01/23 04/01/23 History Inpatient Medication List Aspirin (Aspirin 81 Mg Ectab) [facility] [place] Stop: 05/02/23 08:59 Last Admin: 04/03/23 08:11 Dose: Not Given Documented By: Admin: 04/02/23 07:59 Dose: Not Given Documented By: RAY Atorvastatin Calcium (Atorvastatin 40 Mg Tab) 40 mg PO [facility] Stop: 05/02/23 08:59 Last Admin: 04/03/23 08:10 Dose: 40 mg Documented By: Admin: 04/02/23 07:59 Dose: Not Given Documented By: RAY Heparin Sodium (Porcine) (Heparin Sod 5,000 Unit/0.5 Ml Vial) 5,000 units SQ Q8 JESSICA Stop: 05/01/23 05:59 Last Admin: 04/03/23 14:09 Dose: 5,000 units Documented By: Admin: 04/03/23 05:23 Dose: 5,000 units Documented By: Admin: 04/02/23 23:42 Dose: 5,000 units Documented By: Admin: 04/02/23 15:19 Dose: 5,000 units Documented By: Admin: 04/02/23 05:52 Dose: 5,000 units Documented By: Admin: 04/01/23 23:16 Dose: 5,000 units Documented By: Admin: 04/01/23 15:22 Dose: 5,000 units Documented By: Admin: 04/01/23 06:38 Dose: 5,000 units Documented By: ADDY Acetaminophen 730 mg/ EMPTY (BAG) 73 mls @ 200 mls/hr IV Q6H PRN; Protocol PRN Reason: Pain/Fever Stop: 05/01/23 04:14 Last Infusion: 04/03/23 02:51 Dose: 0 mls/hr Documented By: Admin: 04/03/23 02:30 Dose: 200 mls/hr Documented By: Infusion: 04/01/23 20:41 Dose: 0 mls/hr Documented By: Admin: 04/01/23 20:20 Dose: 200 mls/hr Documented By: ADDY Potassium Chloride/Sodium Chloride (Normal Saline W/20 Meq Kcl) 20 meq in 1,000 mls @ 50 mls/hr IV .Q20H JESSICA; Protocol Stop: 04/04/23 21:29 Last Admin: 04/03/23 05:28 Dose: 50 mls/hr Documented By: Infusion: 04/03/23 05:27 Dose: 0 mls/hr Documented By: Admin: 04/02/23 10:00 Dose: 50 mls/hr Documented By: RAY Ceftriaxone Sodium 2,000 mg/ (Dextrose) 70 mls @ 100 mls/hr IV Q12H JESSICA; Protocol Stop: 04/12/23 14:59 Last Admin: 04/03/23 15:09 Dose: 100 mls/hr Documented By: Infusion: 04/03/23 05:34 Dose: 0 mls/hr Documented By: Admin: 04/03/23 04:24 Dose: 100 mls/hr Documented By: Infusion: 04/02/23 16:55 Dose: 0 mls/hr Documented By: Admin: 04/02/23 15:47 Dose: 100 mls/hr Documented By: RAY Ampicillin Sodium 2,000 mg/ (Sodium Chloride) 100 mls @ 200 mls/hr IV Q4H JESSICA Stop: 04/12/23 14:59 Last Infusion: 04/03/23 14:55 Dose: 0 mls/hr Documented By: Admin: 04/03/23 14:04 Dose: 200 mls/hr Documented By: Infusion: 04/03/23 11:50 Dose: 0 mls/hr Documented By: Admin: 04/03/23 11:19 Dose: 200 mls/hr Documented By: Infusion: 04/03/23 07:36 Dose: 0 mls/hr Documented By: Admin: 04/03/23 06:52 Dose: 200 mls/hr Documented By: Infusion: 04/03/23 03:09 Dose: 0 mls/hr Documented By: Admin: 04/03/23 02:31 Dose: 200 mls/hr Documented By: Infusion: 04/03/23 00:17 Dose: 0 mls/hr Documented By: Admin: 04/02/23 23:42 Dose: 200 mls/hr Documented By: Infusion: 04/02/23 20:26 Dose: 0 mls/hr Documented By: Admin: 04/02/23 19:13 Dose: 200 mls/hr Documented By: Infusion: 04/02/23 15:53 Dose: 0 mls/hr Documented By: Admin: 04/02/23 15:04 Dose: 200 mls/hr Documented By: RAY Acyclovir Sodium 450 mg/ (Dextrose) 259 mls @ 250 mls/hr IV Q8H JESSICA; Protocol Stop: 04/12/23 14:59 Last Admin: 04/03/23 15:09 Dose: 250 mls/hr Documented By: Infusion: 04/03/23 09:14 Dose: 0 mls/hr Documented By: Admin: 04/03/23 07:34 Dose: 250 mls/hr Documented By: Infusion: 04/03/23 01:01 Dose: 0 mls/hr Documented By: Admin: 04/02/23 23:43 Dose: 250 mls/hr Documented By: Infusion: 04/02/23 18:03 Dose: 0 mls/hr Documented By: Admin: 04/02/23 16:54 Dose: 250 mls/hr Documented By: RAY Dexamethasone 6 mg/ Syringe 1.5 mls @ 1 mls/min IV Q6H JESSICA Stop: 04/06/23 15:14 Last Admin: 04/03/23 14:04 Dose: 1 mls/min Documented By: Admin: 04/03/23 09:43 Dose: 1 mls/min Documented By: Admin: 04/03/23 02:03 Dose: 1 mls/min Documented By: Admin: 04/02/23 19:12 Dose: 1 mls/min Documented By: Admin: 04/02/23 15:47 Dose: 1 mls/min Documented By: RAY Vancomycin HCl 1,000 mg/ (Sodium Chloride) 270 mls @ 200 mls/hr IV Q18H JESSICA Stop: 04/13/23 07:59 Last Infusion: 04/03/23 09:14 Dose: 0 mls/hr Documented By: Admin: 04/03/23 07:41 Dose: 200 mls/hr Documented By: KAT Labetalol HCl (Labetalol Hcl Iv 5 Mg/Ml 20ml) 10 mg IV Q6H PRN PRN Reason: SBP>180 or DBP>100 Stop: 05/02/23 12:09 Last Admin: 04/02/23 15:46 Dose: 10 mg Documented By: RAY Co-signed By: Ondansetron HCl (Ondansetron Inj 2 Mg/Ml 2 Ml Vial) 4 mg IV Q6H PRN PRN Reason: Nausea And Vomiting Stop: 05/03/23 10:30 Last Admin: 04/03/23 10:49 Dose: 4 mg Documented By: MATT Discontinued Medications Aspirin (Aspirin 300 Mg Supp) 300 mg AR ONE STA Stop: 04/01/23 03:09 Last Admin: 04/01/23 04:28 Dose: 300 mg Documented By: ABI Gadobutrol (Gadobutrol 65ml Vial) 4.5 ml IV ONCE ONE Stop: 04/01/23 10:05 Last Admin: 04/01/23 10:04 Dose: 4.5 ml Documented By: MAREN Sodium Chloride (Nss) 500 mls @ 999 mls/hr IV .Q31M ONE Stop: 03/31/23 23:42 Last Infusion: 04/01/23 00:33 Dose: 0 mls/hr Documented By: Admin: 04/01/23 00:02 Dose: 999 mls/hr Documented By: ABI Sodium Chloride (Nss 1000ml) 1,000 mls @ 999 mls/hr IV .Q1H1M ONE Stop: 04/01/23 02:24 Last Infusion: 04/01/23 03:12 Dose: 0 mls/hr Documented By: Admin: 04/01/23 01:49 Dose: 999 mls/hr Documented By: ABI Acetaminophen (Ofirmev) 1,000 mg in 100 mls @ 400 mls/hr IV NOW STA Stop: 04/01/23 01:38 Last Infusion: 04/01/23 02:00 Dose: 0 mls/hr Documented By: Admin: 04/01/23 01:47 Dose: 400 mls/hr Documented By: ABI Magnesium Sulfate/Dextrose (Magnesium Sulfate / D5w) 1 gm in 100 mls @ 50 mls/hr IV Q2H JESSICA Stop: 04/01/23 06:14 Last Infusion: 04/01/23 08:09 Dose: 0 mls/hr Documented By: Admin: 04/01/23 06:09 Dose: 50 mls/hr Documented By: Infusion: 04/01/23 05:13 Dose: 50 mls/hr Documented By: Admin: 04/01/23 03:13 Dose: 50 mls/hr Documented By: ABI Potassium Chloride/Sodium Chloride (Normal Saline W/20 Meq Kcl) 20 meq in 1,000 mls @ 60 mls/hr IV .[id number] STA; Protocol Stop: 04/01/23 18:46 Last Infusion: 04/01/23 19:02 Dose: 0 mls/hr Documented By: Infusion: 04/01/23 06:08 Dose: 60 mls/hr Documented By: Admin: 04/01/23 03:12 Dose: 60 mls/hr Documented By: ABI Potassium Chloride (K Teofilo / Wtr) 10 meq in 100 mls @ 100 mls/hr IV Q1H JESSICA Stop: 04/01/23 17:59 Last Infusion: 04/01/23 19:02 Dose: 0 mls/hr Documented By: Admin: 04/01/23 17:30 Dose: 100 mls/hr Documented By: Infusion: 04/01/23 17:24 Dose: 100 mls/hr Documented By: Admin: 04/01/23 16:24 Dose: 100 mls/hr Documented By: Infusion: 04/01/23 16:23 Dose: 100 mls/hr Documented By: Admin: 04/01/23 15:23 Dose: 100 mls/hr Documented By: TATY Magnesium Sulfate/Dextrose (Magnesium Sulfate / D5w) 1 gm in 100 mls @ 50 mls/hr IV ONE ONE Stop: 04/01/23 16:49 Last Infusion: 04/01/23 17:23 Dose: 0 mls/hr Documented By: Admin: 04/01/23 15:23 Dose: 50 mls/hr Documented By: TATY Potassium Chloride/Sodium Chloride (Normal Saline W/20 Meq Kcl) 20 meq in 1,000 mls @ 60 mls/hr IV .[id number] ONE; Protocol Stop: 04/02/23 13:35 Last Infusion: 04/02/23 11:22 Dose: 0 mls/hr Documented By: Admin: 04/01/23 21:27 Dose: 60 mls/hr Documented By: ADDY Vancomycin HCl 1,000 mg/ (Sodium Chloride) 270 mls @ 200 mls/hr IV ONE ONE Stop: 04/02/23 16:05 Last Infusion: 04/02/23 16:55 Dose: 0 mls/hr Documented By: Admin: 04/02/23 15:19 Dose: 200 mls/hr Documented By: RAY Insulin Aspart (Insulin Aspart Per Unit Charge) 0 units SC ACHS JESSICA Stop: 05/01/23 07:29 Last Admin: 04/01/23 09:56 Dose: Not Given Documented By: TATY Co-signed By: DANE Insulin Aspart (Insulin Aspart Per Unit Charge) 0 units SC Q6 JESSICA Stop: 05/01/23 08:29 Last Admin: 04/03/23 12:02 Dose: Not Given Documented By: Admin: 04/03/23 05:23 Dose: Not Given Documented By: Admin: 04/02/23 23:51 Dose: 2 units Documented By: ADDY Co-signed By: LUZ Admin: 04/02/23 18:34 Dose: 2 units Documented By: RAY Co-signed By: JAMES Admin: 04/02/23 12:11 Dose: Not Given Documented By: Admin: 04/02/23 05:52 Dose: Not Given Documented By: Admin: 04/02/23 00:05 Dose: Not Given Documented By: Admin: 04/01/23 18:43 Dose: Not Given Documented By: Admin: 04/01/23 11:33 Dose: Not Given Documented By: Admin: 04/01/23 09:04 Dose: 1 units Documented By: TATY Co-signed By: MATT Lidocaine/Epinephrine (Lidocaine 1%/Epinephrine 1:100,000 20 Ml Vial) Confirm Administered Dose 1 ml .ROUTE .STK-MED ONE Stop: 04/01/23 01:35 Last Admin: 04/01/23 04:03 Dose: Not Given Documented By: ABI Metoprolol Tartrate (Metoprolol Tartrate 1 Mg/Ml Vial) 2.5 mg IV NOW STA Stop: 04/01/23 04:16 Last Admin: 04/01/23 04:37 Dose: 2.5 mg Documented By: ABI Metoprolol Tartrate (Metoprolol Tartrate 1 Mg/Ml Vial) 2.5 mg IV NOW STA Stop: 04/01/23 06:24 Last Admin: 04/01/23 06:49 Dose: 2.5 mg Documented By: ADDY Metoprolol Tartrate (Metoprolol Tartrate 1 Mg/Ml Vial) 2.5 mg IV Q6 PRN PRN Reason: HypertensionSBP>180orDBP>100 Stop: 05/01/23 17:59 Last Admin: 04/02/23 11:55 Dose: 2.5 mg Documented By: Admin: 04/02/23 03:19 Dose: 2.5 mg Documented By: Admin: 04/01/23 19:12 Dose: 2.5 mg Documented By: ADDY Morphine Sulfate (Morphine Sulfate 4 Mg/Ml 1 Ml Carp\Vial) Confirm Administered Dose 4 mg .ROUTE .STK-MED ONE Stop: 04/01/23 01:35 Last Admin: 04/01/23 02:00 Dose: Not Given Documented By: ABI Morphine Sulfate (Morphine Sulfate 4 Mg/Ml 1 Ml Carp\Vial) 4 mg IV NOW STA Stop: 04/01/23 01:38 Last Admin: 04/01/23 02:00 Dose: Not Given Documented By: AIB Olanzapine (Olanzapine 10 Mg/2.1 Ml Sdv) 2.5 mg IM NOW STA Stop: 04/01/23 04:43 Last Admin: 04/01/23 09:55 Dose: Not Given Documented By: TATY Olanzapine (Olanzapine 10 Mg/2.1 Ml Sdv) Confirm Administered Dose 10 mg IM .STK-MED ONE Stop: 04/01/23 04:43 Last Admin: 04/02/23 08:43 Dose: Not Given Documented By: RAY Ondansetron HCl (Ondansetron Inj 2 Mg/Ml 2 Ml Vial) Confirm Administered Dose 4 mg .ROUTE .STK-MED ONE Stop: 04/03/23 10:31 Last Admin: 04/03/23 15:04 Dose: Not Given Documented By: MATT Description This is a 21 electrode EEG with a single channel dedicated to limited EKG. The electrodes were placed in accordance with the International 10-20 system. Interpretation The predominant background activity consists of a fairly well modulated 7 Hz activity, of up to 50 mV in amplitude,seen symmetrically distributed over the posterior head regions bilaterally. This activity attenuates with eye-opening and other alerting procedures. Photic stimulation was performed and elicited no change in the background activity and no abnormal responses were seen. Hyperventilation was not performed. A mild to moderate amount of muscle and movement artifact activity contaminated the recording and did not hinder interpretation to any significant degree. in addition, there was some O2 electrode artifact at times. Throughout the waking portion of the recording, no focal abnormalities or potentially epileptogenic discharges are seen. The patient entered the drowsy state with no further activation. In summary, this EEG showed some very mild abnormality (dysrhythmia) during wakefulness. Drowsiness produces no further activation. No focal abnormalities or potentially epileptogenic discharges were seen. Clinical Correlation The abscence of potentially epileptogenic activity does not exclude a seizure disorder, since interictally, EEGs can be normal. Clinical correlation is required. The very mild slowing in general would be consistent with an encephalopathy which could be due to a wide variety of causes. [facility] EEG Procedure Codes Indication for Procedure (1) Encephalopathy: Neurology Neurology: [id number] EEG include record awake & drowsy
--- NOTE | 2023-04-03 18:36 | Hospitalist Progress Note ---
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 Mild atrophy and microvascular ischemic changes. --Head CTA:Negative CT angiogram of the head. --Neck CTA:Negative CTA neck. --ECHO: Left ventricle systolic function is normal. EF 60 to 65%. Mild concentric LVH. Aortic valve sclerosis mild, without significant aortic valvular stenosis. Mild tricuspid regurgitation. Prominent distal acute valve is noted. Stephen network is noted. Injection of contrast documented no interatrial shunt. --Repeat MRI on 04/02/23:No acute intracranial abnormality is identified. Specifically, there is no MRI evidence of acute or subacute infarct. The tiny focus of restricted diffusion questioned in the right parietal lobe on yesterday's examination may have been artifactual. This was not corroborated on today's examination. -- Total cholesterol 202, LDL 107. --Ammonia 14 --No significant hypercarbia on VBG --Peripheral smear not suggestive of anaplasmosis, Babesia --Anaplasma, Babesia DNA pending --IgM, IgG for Lyme's negative --Other serological test for Lyme's pending --S/P lumbar puncture on 04/03/2023: WBC 37, glucose 84, total protein 47.7. CSF negative for CMV, enterovirus, E. coli, H. influenzae, HSV, HSV, Listeria, Neisseria, staph, varicella-zoster Other CSF studies, cultures pending --EEG showed some very mild abnormality (dysrhythmia) during wakefulness. Drowsiness produces no further activation. No focal abnormalities or potentially epileptogenic discharges were seen. Consistent with encephalopathy HbA1c 5.8 Continue aspirin, Lipitor for now Appreciate Neurology input Continue Neuro Checks Discussed with neurology today Continue Rocephin, vancomycin, ampicillin, Acyclovir and dexamethasone Mental status improving PT OT as able Advance diet as tolerated Paroxysmal atrial tachycardia Normal TSH on Labetalol PRN Replace electrolytes as needed Monitor Hyponatremia Hypochloremia Likely due to poor oral intake Continue IV fluids Sodium 132 today Monitor Leukocytosis CSF studies pending Monitor ? Uncontrolled hypertension PACs Started on metoprolol 25 mg BID IV labetalol PRN for now Monitor BP Adjust antihypertensives as needed Prediabetes HbA1c 5.8 DVT Px: Lovenox SQ Code Status Full code Admission and Anticipated Discharge Date Admission Date: April 01, 2023 Subjective Patient is seen and examined at bedside Mental status much improved Follows simple commands, oriented to person, place Admits to have headache overnight which is improving Reported nausea to RN Denies any chest pain, dyspnea, dizziness, abdominal pain Had lumbar puncture this morning Discussed with neurology today Review of Systems Review of Systems: All systems reviewed & are unremarkable except as noted in Subjective Physical Exam Physical Exam: Physical Exam: Vitals signs as noted above General Appearance:Thin, frail, no apparent distress Head: normocephalic, Atraumatic Eyes: normal inspection, EOMI Neck: supple, Trachea midline Respiratory/Chest: Normal breath sounds, CTA, No accessory muscle use Cardiovascular: S1, S2, No murmur Abdomen/GI:Soft, Non tender, Bowel sounds present Extremities/Musculoskeletal:normal inspection, no edema Neurologic/Psych: Alert, awake, oriented x2, grossly no focal deficits Skin: normal color, warm Results & Data Results & Data Vital Signs (Past 12 Hours) Vital Signs Temp Pulse Pulse Resp BP Pulse Ox O2 Del Method 04/03/23 14:00 70 04/03/23 16:12 36.8 C 78 20 145/82 H 96 Room Air 04/03/23 11:58 36.8 C 69 18 158/83 H 96 Room Air 04/03/23 11:22 36.6 C 70 16 148/84 H 97 Room Air 04/03/23 09:55 79 04/03/23 07:39 36.5 C 80 18 133/94 96 Room Air Laboratory Results Short CBC 04/03/23 Range/Units 06:18 WBC 13.31 H (4.8-10.8) K/ul Hgb 14.0 (12.0-16.0) g/dl Hct 39.9 (37.0-47.0) % Plt Count 242 (130-400) K/uL BMP 04/03/23 06:18 Sodium 132 L Potassium 3.7 Chloride 98 Carbon Dioxide 24 BUN 26 H Creatinine 0.73 Glucose 159 H Calcium 9.2
[2023-04-03] MEDS: METOPROLOL TARTRATE 25 MG TAB PO SCH (20:35)
[2023-04-04] MEDS ORDERED: hydrOXYzine HCl 10 MG TAB PO STA (01:07)
[2023-04-04] MEDS: VANCOMYCIN HCL 1,000 MG in SODIUM CHLORIDE 0.9% 250 ML IV SCH (01:26)
[2023-04-04] MEDS: NSS + 20MEQ KCL 20 MEQ/1,000 ML BAG IV SCH (01:26)
[2023-04-04] MEDS: AMPICILLIN 2,000 MG in SODIUM CHLOR 0.9% AD-VAN 100 ML IV SCH ×6 (02:52→23:04)
[2023-04-04] MEDS: cefTRIAXone SODIUM 2,000 MG in DEXTROSE 5% 50 ML IV SCH ×2 (02:59→16:34)
[2023-04-04] MEDS: dexAMETHasone 6 MG in SYRINGE 0 ML IV SCH ×3 (02:59→15:31)
[2023-04-04] MEDS: HEPARIN SOD 5,000 UNIT/0.5 ML VIAL SQ SCH ×3 (05:14→21:51)
--- NOTE | 2023-04-04 06:46 | Electrocardiogram Report ---
Test Reason : Blood Pressure : / mmHG Vent. Rate : 094 BPM Atrial Rate : 094 BPM P-R Int : 116 ms QRS Dur : 096 ms QT Int : 336 ms P-R-T Axes : 086 044 031 degrees QTc Int : 420 ms Normal sinus rhythm with sinus arrhythmia Incomplete right bundle branch block Nonspecific T wave abnormality No previous ECGs available Confirmed by Tulio Tao ([id number]) on 04/04/2023 6:46:06 AM Referred By: REFERRED SELF Confirmed By:Tulio Tao
[2023-04-04 06:55] LABS: Hematocrit (blood only) 37.9 % (37.0-47.0); Hemoglobin 13.3 g/dl (12.0-16.0); Mean Corpuscular Hgb Conc 35.1 g/dL (32.0-36.0); Mean Corpuscular Volume 88.3 fL (80.0-100.0); Mean Platelet Volume 10.4 fL (9.4-12.4); Platelet Count 257 K/uL (130-400); RDW Coefficient of Variation 12.6 % (11.5-14.5); RDW Standard Deviation 41.1 fL (36.4-46.3); Red Blood Count 4.29 M/uL (4.20-5.40); White Blood Count 23.85 K/ul (4.8-10.8)
--- NOTE | 2023-04-04 07:06 | Electrocardiogram Report ---
Test Reason : Blood Pressure : / mmHG Vent. Rate : 086 BPM Atrial Rate : 077 BPM P-R Int : 120 ms QRS Dur : 080 ms QT Int : 362 ms P-R-T Axes : 080 050 041 degrees QTc Int : 433 ms Sinus rhythm with Premature supraventricular complexes Otherwise normal ECG When compared with ECG of 01-APR-2023 15:50, T wave amplitude has increased in Anterior leads Confirmed by Tulio Tao ([id number]) on 04/04/2023 7:05:28 AM Referred By: REFERRED SELF Confirmed By:Tulio Tao
[2023-04-04 07:18] LABS: BUN Creatinine Ratio 36.2 (10-20); Calcium 9.1 mg/dl (8.6-10.3); Magnesium 1.8 mg/dl (1.7-2.4); Potassium 3.5 mmol/L (3.5-5.1)
[2023-04-04] MEDS: ACYCLOVIR SOD 450 MG in DEXTROSE 5% 250 ML IV SCH ×3 (08:23→23:07)
[2023-04-04] MEDS: ASPIRIN 81 MG ECTAB PO SCH (08:26)
[2023-04-04] MEDS: ATORVASTATIN 40 MG TAB PO SCH (08:27)
[2023-04-04] MEDS: METOPROLOL TARTRATE 25 MG TAB PO SCH ×2 (08:28→19:49)
[2023-04-04] MEDS: INSULIN ASPART PER UNIT CHARGE SC SCH ×4 (08:31→20:02)
--- NOTE | 2023-04-04 13:18 | Pharmacy Report ---
Pharmacy PK ABX Note - Date of Service April 04, 2023 - Assessment and Plan Assessment 67 year old F receiving Vancomycin, Ampicillin, Ceftriaxone and Acyclovir for treatment of possible meningitis. * Day #3 of antimicrobial therapy. * Renal function stable, blood cultures (-) at 48h. CSF (04/03) no growth to date. WBC 24 today. Plan Vancomycin * Current regimen: vancomycin 1gm IV q18h * Random level this AM (~10.5hr level), 12mcg/mL. Predicted to achieve a ssAUC of 412mg/L.hr which is on the low end of therapeutic range with a 56% probability. * Increase vancomycin to 1250mg IV q18 to begin now. Regimen predicted to achieve a ssAUC of 400-600mg/L.hr. * Repeat random level 7/6 AM. Pharmacy will continue to follow and will adjust dose/frequency as necessary. Thank you. Pharmacy has transitioned to AUC monitoring for vancomycin. AUC/ALEXI is the preferred PK/PD target and is associated with decreased risk of nephrotoxicity compared to traditional trough targets.
[2023-04-04 13:35] LABS: White Blood Cell CSF Auto 37 /uL (0-5)
[2023-04-04] MEDS: VANCOMYCIN HCL 1,250 MG in SODIUM CHLORIDE 0.9% 250 ML IV SCH (13:49)
--- NOTE | 2023-04-04 16:11 | Hospitalist Progress Note ---
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 Mild atrophy and microvascular ischemic changes. --Head CTA:Negative CT angiogram of the head. --Neck CTA:Negative CTA neck. --ECHO: Left ventricle systolic function is normal. EF 60 to 65%. Mild concentric LVH. Aortic valve sclerosis mild, without significant aortic valvular stenosis. Mild tricuspid regurgitation. Prominent distal acute valve is noted. Stephen network is noted. Injection of contrast documented no interatrial shunt. --Repeat MRI on 04/02/23:No acute intracranial abnormality is identified. Specifically, there is no MRI evidence of acute or subacute infarct. The tiny focus of restricted diffusion questioned in the right parietal lobe on yesterday's examination may have been artifactual. This was not corroborated on today's examination. -- Total cholesterol 202, LDL 107. --Ammonia 14 --No significant hypercarbia on VBG --Peripheral smear not suggestive of anaplasmosis, Babesia --Anaplasma, Babesia DNA pending --IgM, IgG for Lyme's negative --Other serological test for Lyme's pending --S/P lumbar puncture on 04/03/2023: WBC 37, glucose 84, total protein 47.7. CSF negative for CMV, enterovirus, E. coli, H. influenzae, HSV, HSV, Listeria, Neisseria, staph, varicella-zoster Other CSF studies, cultures pending --EEG showed some very mild abnormality (dysrhythmia) during wakefulness. Drowsiness produces no further activation. No focal abnormalities or potentially epileptogenic discharges were seen. Consistent with encephalopathy HbA1c 5.8 Continue aspirin, Lipitor for now Appreciate Neurology input Continue Neuro Checks Continue Rocephin, vancomycin, ampicillin, Acyclovir and dexamethasone Confusion resolved PT OT as able Clinically much improved Leukocytosis secondary to steroids likely Consulted infectious disease for further recommendations Paroxysmal atrial tachycardia Normal TSH Started on metoprolol Replace electrolytes as needed Monitor Hyponatremia Hypochloremia Likely due to poor oral intake Received IV fluids Sodium 140 today Monitor ? Uncontrolled hypertension PACs Started on metoprolol 25 mg BID IV labetalol PRN for now Monitor BP Adjust antihypertensives as needed Prediabetes HbA1c 5.8 DVT Px: Lovenox SQ Code Status Full code Disposition PT OT prior to discharge Admission and Anticipated Discharge Date Admission Date: April 01, 2023 Subjective Patient is seen and examined at bedside Oriented x3 during my encounter Offers no new complaints Discussed with patient's family at bedside Tries to get out of bed frequently per family Denies any chest pain, dyspnea, dizziness, abdominal pain, headache, focal weakness, change in vision Review of Systems Review of Systems: All systems reviewed & are unremarkable except as noted in Subjective Physical Exam Physical Exam: Physical Exam: Vitals signs as noted above General Appearance:Thin, frail, no apparent distress Head: normocephalic, Atraumatic Eyes: normal inspection, EOMI Neck: supple, Trachea midline Respiratory/Chest: Normal breath sounds, CTA, No accessory muscle use Cardiovascular: S1, S2, No murmur Abdomen/GI:Soft, Non tender, Bowel sounds present Extremities/Musculoskeletal:normal inspection, no edema Neurologic/Psych: Alert, awake, oriented x2, grossly no focal deficits Skin: normal color, warm Results & Data Results & Data Vital Signs (Past 12 Hours) Vital Signs Temp Pulse Pulse Resp BP Pulse Ox O2 Del Method 04/04/23 15:47 36.8 C 99 H 18 171/109 H 97 Room Air 04/04/23 11:17 36.8 C 67 17 154/80 H 97 Room Air 04/04/23 07:00 64 04/04/23 07:00 Room Air 04/04/23 08:37 36.4 C L 83 19 148/80 H 96 Room Air Laboratory Results Short CBC 04/04/23 Range/Units 06:29 WBC 23.85 H (4.8-10.8) K/ul Hgb 13.3 (12.0-16.0) g/dl Hct 37.9 (37.0-47.0) % Plt Count 257 (130-400) K/uL BMP 04/04/23 06:29 Sodium 140 Potassium 3.5 Chloride 107 Carbon Dioxide 26 BUN 21 Creatinine 0.58 L Glucose 139 H Calcium 9.1
[2023-04-04] MEDS: MELATONIN 3 MG TAB PO PRN (19:52)
[2023-04-04] MEDS ORDERED: OLANZapine 10 MG/2.1 ML SDV IM PRN (21:18)
[2023-04-04] MEDS ORDERED: MELATONIN 3 MG TAB PO STA (21:36)
[2023-04-05] MEDS ORDERED: OLANZapine 10 MG/2.1 ML SDV IM STA (00:04)
[2023-04-05] MEDS: AMPICILLIN 2,000 MG in SODIUM CHLOR 0.9% AD-VAN 100 ML IV SCH ×6 (02:40→21:55)
[2023-04-05] MEDS: cefTRIAXone SODIUM 2,000 MG in DEXTROSE 5% 50 ML IV SCH ×2 (03:41→17:11)
[2023-04-05] MEDS: LABETALOL HCL IV 5 MG/ML 20ML IV PRN ×2 (04:24→23:01)
[2023-04-05] MEDS: HEPARIN SOD 5,000 UNIT/0.5 ML VIAL SQ SCH ×3 (04:30→21:58)
[2023-04-05 05:07] LABS: Babesia microti DNA Not Detected (Not Detected)
[2023-04-05 06:44] LABS: Hematocrit (blood only) 40.2 % (37.0-47.0); Hemoglobin 14.4 g/dl (12.0-16.0); Mean Corpuscular Hemoglobin 31.2 pg (25.0-34.0); Mean Corpuscular Hgb Conc 35.8 g/dL (32.0-36.0); Mean Platelet Volume 10.1 fL (9.4-12.4); Platelet Count 261 K/uL (130-400); RDW Coefficient of Variation 12.4 % (11.5-14.5); RDW Standard Deviation 39.7 fL (36.4-46.3); Red Blood Count 4.62 M/uL (4.20-5.40); White Blood Count 18.15 K/ul (4.8-10.8)
[2023-04-05 07:20] LABS: BUN Creatinine Ratio 27.9 (10-20); Calcium 9.2 mg/dl (8.6-10.3); Creatinine Clr Calc Pharmacy 56.1 ml/min; Est GFR (African American) 107.2 ml/min; Est GFR (Non-African American) 92.5 ml/min; Potassium 2.7 mmol/L (3.5-5.1)
[2023-04-05] MEDS: ACYCLOVIR SOD 450 MG in DEXTROSE 5% 250 ML IV SCH ×2 (07:49→17:11)
[2023-04-05] MEDS: VANCOMYCIN HCL 1,250 MG in SODIUM CHLORIDE 0.9% 250 ML IV SCH (07:50)
[2023-04-05] MEDS: INSULIN ASPART PER UNIT CHARGE SC SCH ×4 (08:15→20:09)
[2023-04-05] MEDS: OLANZapine 10 MG/2.1 ML SDV IM PRN ×2 (09:32→20:18)
[2023-04-05] MEDS: ATORVASTATIN 40 MG TAB PO SCH (10:03)
[2023-04-05] MEDS: ASPIRIN 81 MG ECTAB PO SCH (10:05)
[2023-04-05] MEDS: METOPROLOL TARTRATE 25 MG TAB PO SCH ×2 (10:06→20:22)
[2023-04-05] MEDS: dexAMETHasone 4 MG in SYRINGE 0 ML IV SCH ×2 (10:21→20:22)
--- NOTE | 2023-04-05 11:40 | Hospitalist Progress Note ---
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 Mild atrophy and microvascular ischemic changes. --Head CTA:Negative CT angiogram of the head. --Neck CTA:Negative CTA neck. --ECHO: Left ventricle systolic function is normal. EF 60 to 65%. Mild concentric LVH. Aortic valve sclerosis mild, without significant aortic valvular stenosis. Mild tricuspid regurgitation. Prominent eustachian valve is noted. Chiari network is noted. Injection of contrast documented no interatrial shunt. --Repeat MRI on 04/02/23:No acute intracranial abnormality is identified. Specifically, there is no MRI evidence of acute or subacute infarct. The tiny focus of restricted diffusion questioned in the right parietal lobe on yesterday's examination may have been artifactual. This was not corroborated on today's examination. -- Total cholesterol 202, LDL 107. --Ammonia 14 --No significant hypercarbia on VBG --Peripheral smear not suggestive of anaplasmosis, Babesia --Anaplasma, Babesia DNA pending --IgM, IgG for Lyme's negative --Other serological test for Lyme's pending --S/P lumbar puncture on 04/03/2023: WBC 37, glucose 84, total protein 47.7. CSF negative for CMV, enterovirus, E. coli, H. influenzae, HSV, HSV, Listeria, Neisseria, staph, varicella-zoster Other CSF studies, cultures pending --EEG showed some very mild abnormality (dysrhythmia) during wakefulness. Drowsiness produces no further activation. No focal abnormalities or potentially epileptogenic discharges were seen. Consistent with encephalopathy HbA1c 5.8 Continue aspirin, Lipitor for now Appreciate Neurology input Continue Neuro Checks Continue Rocephin, vancomycin, ampicillin, Acyclovir and dexamethasone Confusion on and off PT OT as able Leukocytosis secondary to steroids likely Consulted infectious disease for further recommendations Paroxysmal atrial tachycardia Normal TSH Started on metoprolol Replace electrolytes as needed Monitor Hyponatremia Hypochloremia Likely due to poor oral intake Received IV fluids Sodium 141 today Monitor ? Uncontrolled hypertension PACs Started on metoprolol 25 mg BID IV labetalol PRN for now Monitor BP Adjust antihypertensives as needed Prediabetes HbA1c 5.8 DVT Px: Lovenox SQ Code Status Full code Disposition PT OT prior to discharge Admission and Anticipated Discharge Date Admission Date: April 01, 2023 Subjective Patient is seen and examined at bedside, seen in follow up of AMS, concern for cva initially, now treated for poss. meningitis Currently laying in bed, in no acute distress, she is able to answer simple questions appropriately However previously agitated and trying to get out of bed - required zyprexa Pt offers no complaints, denies any chest pain, dyspnea, dizziness, abdominal pain, headache, focal weakness, change in vision Discussed with patient's family at bedside - they are concerned about her clinical status. Neurology contacted - plans to see pt tomorrow ID consult pending Review of Systems Review of Systems: All systems reviewed & are unremarkable except as noted in Subjective Physical Exam Physical Exam: General Appearance:Thin, frail, no apparent distress Head: normocephalic, Atraumatic Eyes: normal inspection, EOMI Respiratory/Chest: Normal breath sounds, CTA, No accessory muscle use Cardiovascular: S1, S2, No murmur Abdomen/GI:Soft, Non tender, Bowel sounds present Extremities/Musculoskeletal:normal inspection, no edema Neurologic/Psych: Alert, awake, oriented x2, grossly no focal deficits Skin: normal color, warm Results & Data Results & Data Vital Signs (Past 12 Hours) Vital Signs Temp Pulse Pulse Resp BP BP Pulse Ox 04/05/23 09:15 67 04/05/23 07:20 36.9 C 78 20 166/85 H 95 04/05/23 05:07 76 177/77 H 04/05/23 05:04 177/77 H 04/05/23 04:24 86 199/121 H 04/05/23 00:07 51 L O2 Del Method 04/05/23 09:15 04/05/23 07:20 Room Air 04/05/23 05:07 04/05/23 05:04 04/05/23 04:24 04/05/23 00:07 Laboratory Results 04/05/23 04/05/23 04/05/23 Range/Units 07:26 06:20 06:20 WBC (4.8-10.8) K/ul RBC (4.20-5.40) M/uL Hgb (12.0-16.0) g/dl Hct (37.0-47.0) % MCV (80.0-100.0) fL MCH (25.0-34.0) pg MCHC (32.0-36.0) g/dL RDW Std Deviation (36.4-46.3) fL RDW Coeff of Alyssa (11.5-14.5) % Plt Count (130-400) K/uL MPV (9.4-12.4) fL Sodium 141 (136-145) mmol/L Potassium 2.7 L D (3.5-5.1) mmol/L Chloride 101 (98-107) mmol/L Carbon Dioxide 30 (21-32) mmol/L Anion Gap 10 (3-11) BUN 17 (6-23) mg/dl Creatinine 0.61 (0.6-1.2) mg/dl Est Cr Clr Drug Dosing 56.1 ml/min Est GFR ( Amer) 107.2 ml/min Est GFR (Non-Af Amer) 92.5 ml/min BUN/Creatinine Ratio 27.9 H (10-20) Glucose 122 H (70-99(Fasting)) mg/dl POC Glucose 115 H (70-99) mg/dl Calcium 9.2 (8.6-10.3) mg/dl Procalcitonin < 0.05 (0-0.5) ng/ml CSF WBC (Auto) (0-5) /uL Random Vancomycin (10-20) mcg/ml Babesia microti DNA PCR (Not Detected) 04/05/23 04/04/23 04/04/23 Range/Units 06:20 20:01 15:51 WBC 18.15 H (4.8-10.8) K/ul RBC 4.62 (4.20-5.40) M/uL Hgb 14.4 (12.0-16.0) g/dl Hct 40.2 (37.0-47.0) % MCV 87.0 (80.0-100.0) fL MCH 31.2 (25.0-34.0) pg MCHC 35.8 (32.0-36.0) g/dL RDW Std Deviation 39.7 (36.4-46.3) fL RDW Coeff of Alyssa 12.4 (11.5-14.5) % Plt Count 261 (130-400) K/uL MPV 10.1 (9.4-12.4) fL Sodium (136-145) mmol/L Potassium (3.5-5.1) mmol/L Chloride (98-107) mmol/L Carbon Dioxide (21-32) mmol/L Anion Gap (3-11) BUN (6-23) mg/dl Creatinine (0.6-1.2) mg/dl Est Cr Clr Drug Dosing ml/min Est GFR ( Amer) ml/min Est GFR (Non-Af Amer) ml/min BUN/Creatinine Ratio (10-20) Glucose (70-99(Fasting)) mg/dl POC Glucose 109 H 130 H (70-99) mg/dl Calcium (8.6-10.3) mg/dl Procalcitonin (0-0.5) ng/ml CSF WBC (Auto) (0-5) /uL Random Vancomycin (10-20) mcg/ml Babesia microti DNA PCR (Not Detected) 04/04/23 04/03/23 04/01/23 Range/Units 11:51 Unknown 00:15 WBC (4.8-10.8) K/ul RBC (4.20-5.40) M/uL Hgb (12.0-16.0) g/dl Hct (37.0-47.0) % MCV (80.0-100.0) fL MCH (25.0-34.0) pg MCHC (32.0-36.0) g/dL RDW Std Deviation (36.4-46.3) fL RDW Coeff of Alyssa (11.5-14.5) % Plt Count (130-400) K/uL MPV (9.4-12.4) fL Sodium (136-145) mmol/L Potassium (3.5-5.1) mmol/L Chloride (98-107) mmol/L Carbon Dioxide (21-32) mmol/L Anion Gap (3-11) BUN (6-23) mg/dl Creatinine (0.6-1.2) mg/dl Est Cr Clr Drug Dosing ml/min Est GFR ( Amer) ml/min Est GFR (Non-Af Amer) ml/min BUN/Creatinine Ratio (10-20) Glucose (70-99(Fasting)) mg/dl POC Glucose (70-99) mg/dl Calcium (8.6-10.3) mg/dl Procalcitonin (0-0.5) ng/ml CSF WBC (Auto) 37 H* (0-5) /uL Random Vancomycin 12.0 (10-20) mcg/ml Babesia microti DNA PCR Not Detected (Not Detected) Medications Administered Current Inpatient Medications Aspirin (Aspirin 81 Mg Ectab) 81 mg PO QAM [facility] Stop: 05/02/23 08:59 Last Admin: 04/05/23 10:05 Dose: 81 mg Atorvastatin Calcium (Atorvastatin 40 Mg Tab) 40 mg PO QAM [facility] Stop: 05/02/23 08:59 Last Admin: 04/05/23 10:03 Dose: 40 mg Dextrose (Dextrose 50% 50 Ml Syringe) 25 - 50 ml IV UD PRN; Protocol PRN Reason: Hypoglycemia Protocol Stop: 05/01/23 07:07 Glucagon (Glucagon For Inj 1 Mg Vial) 1 mg SQ UD PRN; Protocol PRN Reason: Hypoglycemia Protocol Stop: 05/01/23 07:07 Glucose (Glucose 10 Tab/Tube) 4 - 8 tab PO UD PRN; Protocol PRN Reason: Hypoglycemia Treatment Stop: 05/01/23 07:07 Glucose (Glucose 40% Gel 15 Gm Tube) 15 - 30 gm PO UD PRN; Protocol PRN Reason: Hypoglycemia Protocol Stop: 05/01/23 07:07 Heparin Sodium (Porcine) (Heparin Sod 5,000 Unit/0.5 Ml Vial) 5,000 units SQ Q8 [facility] Stop: 05/01/23 05:59 Last Admin: 04/05/23 04:30 Dose: 5,000 units Acetaminophen 730 mg/ EMPTY (BAG) 73 mls @ 200 mls/hr IV Q6H PRN; Protocol PRN Reason: Pain/Fever Stop: 05/01/23 04:14 Last Infusion: 04/03/23 23:08 Dose: Infused Ceftriaxone Sodium 2,000 mg/ (Dextrose) 70 mls @ 100 mls/hr IV Q12H [facility]ESS[facility]; Protocol Stop: 04/12/23 14:59 Last Infusion: 04/05/23 04:31 Dose: Infused Ampicillin Sodium 2,000 mg/ (Sodium Chloride) 100 mls @ 200 mls/hr IV Q4H [facility] Stop: 04/12/23 14:59 Last Infusion: 04/05/23 09:56 Dose: Infused Acyclovir Sodium 450 mg/ (Dextrose) 259 mls @ 250 mls/hr IV Q8H [facility]; Protocol Stop: 04/12/23 14:59 Last Infusion: 04/05/23 09:57 Dose: Infused Vancomycin HCl 1,250 mg/ (Sodium Chloride) 275 mls @ 200 mls/hr IV Q18H [facility] Stop: 04/14/23 13:59 Last Infusion: 04/05/23 09:57 Dose: Infused Dexamethasone 4 mg/ Syringe 1 mls @ 1 mls/min IV Q12H [facility] Stop: 05/05/23 08:59 Last Admin: 04/05/23 10:21 Dose: 1 mls/min Potassium Chloride (K Teofilo / Wtr) 10 meq in 100 mls @ 100 mls/hr IV Q1H [facility] Stop: 04/05/23 14:29 Insulin Aspart (Insulin Aspart Per Unit Charge) 0 units SC ACHS [facility] Stop: 05/03/23 16:29 Last Admin: 04/05/23 08:15 Dose: 2 units Labetalol HCl (Labetalol Hcl Iv 5 Mg/Ml 20ml) 10 mg IV Q6H PRN PRN Reason: SBP>180 or DBP>100 Stop: 05/02/23 12:09 Last Admin: 04/05/23 04:24 Dose: 10 mg Melatonin (Melatonin 3 Mg Tab) 3 mg PO HS PRN PRN Reason: Sleep Stop: 05/04/23 19:46 Last Admin: 04/04/23 19:52 Dose: 3 mg Metoprolol Tartrate (Metoprolol Tartrate 25 Mg Tab) 25 mg PO BID [facility] Stop: 05/03/23 20:59 Last Admin: 04/05/23 10:06 Dose: 25 mg Miscellaneous (Carbohydrates For Hypoglycemia ) 15 - 30 gm PO UD PRN PRN Reason: Hypoglycemia Protocol Stop: 05/01/23 07:07 Miscellaneous Information (Vancomycin Consult Active) 1 each N/A UD PRN PRN Reason: Consult Stop: 05/02/23 15:14 Olanzapine (Olanzapine 10 Mg/2.1 Ml Sdv) 2 mg IM Q4H PRN; Protocol PRN Reason: Anxiety/Agitation Stop: 05/01/23 04:36 Last Admin: 04/05/23 09:32 Dose: 2 mg Ondansetron HCl (Ondansetron Inj 2 Mg/Ml 2 Ml Vial) 4 mg IV Q6H PRN PRN Reason: Nausea And Vomiting Stop: 05/03/23 10:30 Last Admin: 04/03/23 10:49 Dose: 4 mg
[2023-04-05] MEDS: POTASSIUM CHLORIDE / WTR 10 MEQ/100 ML PLCT IV SCH ×3 (12:17→14:31)
[2023-04-05] MEDS ORDERED: POTASSIUM CHLORIDE CRTAB 20 MEQ TABCR PO STA (12:19)
[2023-04-05] MEDS: ADVANCED PROBIOTIC 1250 MG CAPSULE PO SCH (13:07)
[2023-04-05 13:53] LABS: 18KDIGG Band NON-REACTIVE; 23KDIGG Band NON-REACTIVE; 23KDIGM Band REACTIVE; 28KDIGG Band NON-REACTIVE; 30KDIGG Band NON-REACTIVE; 39KDIGG Band NON-REACTIVE; 39KDIGM Band NON-REACTIVE; 41KDIGG Band NON-REACTIVE; 41KDIGM Band NON-REACTIVE; 45KDIGG Band NON-REACTIVE; 58KDIGG Band NON-REACTIVE; 66KDIGG Band NON-REACTIVE; 93KDIGG Band NON-REACTIVE; Lyme Antibodies, WB IgG NEGATIVE (NEGATIVE); Lyme Antibodies, WB IgM NEGATIVE (NEGATIVE)
[2023-04-05] MEDS: MELATONIN 3 MG TAB PO PRN (20:18)
--- NOTE | 2023-04-05 22:55 | Electrocardiogram Report ---
Test Reason : Blood Pressure : / mmHG Vent. Rate : 076 BPM Atrial Rate : 076 BPM P-R Int : 122 ms QRS Dur : 088 ms QT Int : 382 ms P-R-T Axes : 080 068 072 degrees QTc Int : 429 ms Sinus rhythm with Premature atrial complexes Otherwise normal ECG When compared with ECG of 02-APR-2023 05:47, No significant change Confirmed by Tulio Tao ([id number]) on 04/05/2023 10:54:42 PM Referred By: REFERRED SELF Confirmed By:Tulio Tao
[2023-04-06] MEDS: ACYCLOVIR SOD 450 MG in DEXTROSE 5% 250 ML IV SCH ×3 (00:23→16:58)
[2023-04-06] MEDS: OLANZapine 10 MG/2.1 ML SDV IM PRN (00:28)
[2023-04-06] MEDS: VANCOMYCIN HCL 1,250 MG in SODIUM CHLORIDE 0.9% 250 ML IV SCH (02:27)
[2023-04-06] MEDS: AMPICILLIN 2,000 MG in SODIUM CHLOR 0.9% AD-VAN 100 ML IV SCH ×6 (03:53→23:03)
[2023-04-06] MEDS: cefTRIAXone SODIUM 2,000 MG in DEXTROSE 5% 50 ML IV SCH ×2 (04:40→16:57)
[2023-04-06] MEDS: HEPARIN SOD 5,000 UNIT/0.5 ML VIAL SQ SCH ×3 (04:47→21:31)
[2023-04-06] MEDS: LABETALOL HCL IV 5 MG/ML 20ML IV PRN (04:54)
[2023-04-06] MEDS: METOPROLOL TARTRATE 25 MG TAB PO SCH ×2 (06:10→20:18)
[2023-04-06 06:48] LABS: Hematocrit (blood only) 41.9 % (37.0-47.0); Hemoglobin 14.8 g/dl (12.0-16.0); Mean Corpuscular Hemoglobin 31.1 pg (25.0-34.0); Mean Corpuscular Hgb Conc 35.3 g/dL (32.0-36.0); Mean Platelet Volume 10.1 fL (9.4-12.4); Platelet Count 283 K/uL (130-400); RDW Coefficient of Variation 12.5 % (11.5-14.5); RDW Standard Deviation 40.4 fL (36.4-46.3); Red Blood Count 4.76 M/uL (4.20-5.40)
[2023-04-06 07:18] LABS: BUN Creatinine Ratio 24.6 (10-20); Calcium 9.7 mg/dl (8.6-10.3); Creatinine Clr Calc Pharmacy 58.1 ml/min; Est GFR (African American) 109.6 ml/min; Est GFR (Non-African American) 94.6 ml/min; Magnesium 1.6 mg/dl (1.7-2.4); Phosphorus 3.6 mg/dl (2.5-4.9); Potassium 3.4 mmol/L (3.5-5.1)
[2023-04-06] MEDS: INSULIN ASPART PER UNIT CHARGE SC SCH ×4 (08:41→20:18)
[2023-04-06] MEDS: ADVANCED PROBIOTIC 1250 MG CAPSULE PO SCH (08:45)
[2023-04-06] MEDS: ATORVASTATIN 40 MG TAB PO SCH (08:46)
[2023-04-06] MEDS: ASPIRIN 81 MG ECTAB PO SCH (08:46)
[2023-04-06] MEDS: dexAMETHasone 4 MG in SYRINGE 0 ML IV SCH ×2 (08:46→21:30)
[2023-04-06] MEDS ORDERED: POTASSIUM CHLORIDE CRTAB 20 MEQ TABCR PO STA (09:40)
--- NOTE | 2023-04-06 09:43 | Hospitalist Progress Note ---
Date of Service April 06, 2023 Assessment & Plan (1) Left-sided weakness: Plan: Stroke Like Symptoms Acute metabolic Encephalopathy DD: Meningitis/Encephalitis, Less likely seizure, CVA --Initial MRI Brain on 04/01/23:There is an acute punctate infarct within the right parietal lobe. Mild atrophy and microvascular ischemic changes. --Head CTA:Negative CT angiogram of the head. --Neck CTA:Negative CTA neck. --ECHO: Left ventricle systolic function is normal. EF 60 to 65%. Mild concentric LVH. Aortic valve sclerosis mild, without significant aortic valvular stenosis. Mild tricuspid regurgitation. Prominent eustachian valve is noted. Chiari network is noted. Injection of contrast documented no interatrial shunt. --Repeat MRI on 04/02/23:No acute intracranial abnormality is identified. Specifically, there is no MRI evidence of acute or subacute infarct. The tiny focus of restricted diffusion questioned in the right parietal lobe on yesterday's examination may have been artifactual. This was not corroborated on today's examination. -- Total cholesterol 202, LDL 107. --Ammonia 14 --No significant hypercarbia on VBG --Peripheral smear not suggestive of anaplasmosis, Babesia --Anaplasma, Babesia DNA pending --IgM, IgG for Lyme's negative --Other serological test for Lyme's pending --S/P lumbar puncture on 04/03/2023: WBC 37, glucose 84, total protein 47.7. CSF negative for CMV, enterovirus, E. coli, H. influenzae, HSV, HSV, Listeria, Neisseria, staph, varicella-zoster Other CSF studies, cultures pending --EEG showed some very mild abnormality (dysrhythmia) during wakefulness. Drowsiness produces no further activation. No focal abnormalities or potentially epileptogenic discharges were seen. Consistent with encephalopathy HbA1c 5.8 Continue aspirin, Lipitor for now Appreciate Neurology input - 04/06 - Clinically she is improving in her limb strength is quite good today. She still has some slight confusion but is improved compared to earlier this week.Patient has an elevated white count which probably is due to the dexamethasone. She is afebrile.Confusion could be from steroids and certain antibiotics. Awaiting ID recs. Continue Neuro Checks Continue Rocephin, vancomycin, ampicillin, Acyclovir and dexamethasone -> discussed w/ ID (04/06/23) - will stop vanco and acyclovir Confusion on and off PT OT as able Leukocytosis secondary to steroids likely Consulted infectious disease for further recommendations - recommend ok to stop vanco and valacyclovir - recommend to repeat LP w/ opening pressure For completeness also recommend to order HIV, syphilis, histoplasma, Bartonella, Q fever, diverticulosis, West Nile virus, and Brucella. All cultures/studies will need to be followed to completion. Paroxysmal atrial tachycardia Normal TSH Started on metoprolol Replace electrolytes as needed Monitor Hyponatremia Hypochloremia Likely due to poor oral intake Received IV fluids Sodium 140 today Monitor ? Uncontrolled hypertension PACs Started on metoprolol 25 mg BID IV labetalol PRN for now Monitor BP Adjust antihypertensives as needed Prediabetes HbA1c 5.8 DVT Px: Lovenox SQ Code Status Full code Disposition PT OT prior to discharge Admission and Anticipated Discharge Date Admission Date: April 01, 2023 Subjective Patient is seen and examined at bedside, seen in follow up of AMS, concern for cva initially, now treated for poss. meningitis Currently laying in bed, in no acute distress, she is able to answer simple questions appropriately However previously agitated and trying to get out of bed - required zyprexa Now seems improved - but confused on and off. Per at the bedside - she slept few hours in the afternoon and is doing better now. Pt offers no complaints, denies any chest pain, dyspnea, dizziness, abdominal pain, headache, focal weakness, change in vision Discussed w/Neurology - pt seems to be improved - improved strength and somewhat improved mental status as well, but may take time to fully recover - awaiting ID recs. ID consulted and reviewed pt today - discussed w/ - recommend ok to stop vanco and acyclovir. Recommend to repeat LP w/ opening pressure. Discussed w/ pt and at the bedside - at this time will think about it - they prefer not to do another LP. Review of Systems Review of Systems: All systems reviewed & are unremarkable except as noted in Subjective Physical Exam Physical Exam: General Appearance:Thin, frail, no apparent distress Head: normocephalic, Atraumatic Eyes: normal inspection, EOMI Respiratory/Chest: Normal breath sounds, CTA, No accessory muscle use Cardiovascular: S1, S2, No murmur Abdomen/GI:Soft, Non tender, Bowel sounds present Extremities/Musculoskeletal:normal inspection, no edema Neurologic/Psych: Alert, awake, oriented x2, grossly no focal deficits Skin: normal color, warm Results & Data Results & Data Vital Signs (Past 12 Hours) Vital Signs Temp Pulse Pulse Resp BP BP Pulse Ox 04/06/23 08:35 36.8 C 81 22 168/96 H 97 04/06/23 08:12 75 04/06/23 05:35 74 171/106 H 04/06/23 04:54 83 168/106 H 04/06/23 04:33 36.7 C 83 16 168/106 H 97 04/05/23 23:16 79 153/94 H 04/05/23 23:16 79 153/94 H 04/05/23 23:08 79 04/05/23 22:52 36.7 C 123 H 18 191/91 H 97 04/05/23 23:01 123 H 191/91 H O2 Del Method 04/06/23 08:35 Room Air 04/06/23 08:12 04/06/23 05:35 04/06/23 04:54 04/06/23 04:33 Room Air 04/05/23 23:16 04/05/23 23:16 04/05/23 23:08 04/05/23 22:52 Room Air 04/05/23 23:01 Laboratory Results 04/06/23 04/06/23 04/06/23 Range/Units 07:43 06:20 06:20 WBC 16.10 H (4.8-10.8) K/ul RBC 4.76 (4.20-5.40) M/uL Hgb 14.8 (12.0-16.0) g/dl Hct 41.9 (37.0-47.0) % MCV 88.0 (80.0-100.0) fL MCH 31.1 (25.0-34.0) pg MCHC 35.3 (32.0-36.0) g/dL RDW Std Deviation 40.4 (36.4-46.3) fL RDW Coeff of Alyssa 12.5 (11.5-14.5) % Plt Count 283 (130-400) K/uL MPV 10.1 (9.4-12.4) fL Sodium 140 (136-145) mmol/L Potassium 3.4 L D (3.5-5.1) mmol/L Chloride 98 (98-107) mmol/L Carbon Dioxide 31 (21-32) mmol/L Anion Gap 11 (3-11) BUN 14 (6-23) mg/dl Creatinine 0.57 L (0.6-1.2) mg/dl Est Cr Clr Drug Dosing 58.1 ml/min Est GFR ( Amer) 109.6 ml/min Est GFR (Non-Af Amer) 94.6 ml/min BUN/Creatinine Ratio 24.6 H (10-20) Glucose 127 H (70-99(Fasting)) mg/dl POC Glucose 109 H (70-99) mg/dl Calcium 9.7 (8.6-10.3) mg/dl Phosphorus 3.6 (2.5-4.9) mg/dl Magnesium 1.6 L (1.7-2.4) mg/dl A. phagocytophilum DNA (Negative) Lyme IgG (Western Blot) (NEGATIVE) Lyme IgG 18 kDa Band Lyme IgG 23 kDa Band Lyme IgG 28 kDa Band Lyme IgG 30 kDa Band Lyme IgG 39 kDa Band Lyme IgG 41 kDa Band Lyme IgG 45 kDa Band Lyme IgG 58 kDa Band Lyme IgG 66 kDa Band Lyme IgG 93 kDa Band Lyme IgM Ab (WB) (NEGATIVE) Lyme IgM 23 kDa Band Lyme IgM 39 kDa Band Lyme IgM 41 kDa Band 04/05/23 04/05/23 04/05/23 Range/Units 20:01 17:28 12:31 WBC (4.8-10.8) K/ul RBC (4.20-5.40) M/uL Hgb (12.0-16.0) g/dl Hct (37.0-47.0) % MCV (80.0-100.0) fL MCH (25.0-34.0) pg MCHC (32.0-36.0) g/dL RDW Std Deviation (36.4-46.3) fL RDW Coeff of Alyssa (11.5-14.5) % Plt Count (130-400) K/uL MPV (9.4-12.4) fL Sodium (136-145) mmol/L Potassium (3.5-5.1) mmol/L Chloride (98-107) mmol/L Carbon Dioxide (21-32) mmol/L Anion Gap (3-11) BUN (6-23) mg/dl Creatinine (0.6-1.2) mg/dl Est Cr Clr Drug Dosing ml/min Est GFR ( Amer) ml/min Est GFR (Non-Af Amer) ml/min BUN/Creatinine Ratio (10-20) Glucose (70-99(Fasting)) mg/dl POC Glucose 97 194 H 148 H (70-99) mg/dl Calcium (8.6-10.3) mg/dl Phosphorus (2.5-4.9) mg/dl Magnesium (1.7-2.4) mg/dl A. phagocytophilum DNA (Negative) Lyme IgG (Western Blot) (NEGATIVE) Lyme IgG 18 kDa Band Lyme IgG 23 kDa Band Lyme IgG 28 kDa Band Lyme IgG 30 kDa Band Lyme IgG 39 kDa Band Lyme IgG 41 kDa Band Lyme IgG 45 kDa Band Lyme IgG 58 kDa Band Lyme IgG 66 kDa Band Lyme IgG 93 kDa Band Lyme IgM Ab (WB) (NEGATIVE) Lyme IgM 23 kDa Band Lyme IgM 39 kDa Band Lyme IgM 41 kDa Band 04/01/23 04/01/23 Range/Units 00:17 00:15 WBC (4.8-10.8) K/ul RBC (4.20-5.40) M/uL Hgb (12.0-16.0) g/dl Hct (37.0-47.0) % MCV (80.0-100.0) fL MCH (25.0-34.0) pg MCHC (32.0-36.0) g/dL RDW Std Deviation (36.4-46.3) fL RDW Coeff of Alyssa (11.5-14.5) % Plt Count (130-400) K/uL MPV (9.4-12.4) fL Sodium (136-145) mmol/L Potassium (3.5-5.1) mmol/L Chloride (98-107) mmol/L Carbon Dioxide (21-32) mmol/L Anion Gap (3-11) BUN (6-23) mg/dl Creatinine (0.6-1.2) mg/dl Est Cr Clr Drug Dosing ml/min Est GFR ( Amer) ml/min Est GFR (Non-Af Amer) ml/min BUN/Creatinine Ratio (10-20) Glucose (70-99(Fasting)) mg/dl POC Glucose (70-99) mg/dl Calcium (8.6-10.3) mg/dl Phosphorus (2.5-4.9) mg/dl Magnesium (1.7-2.4) mg/dl A. phagocytophilum DNA Negative (Negative) Lyme IgG (Western Blot) NEGATIVE (NEGATIVE) Lyme IgG 18 kDa Band NON-REACTIVE Lyme IgG 23 kDa Band NON-REACTIVE Lyme IgG 28 kDa Band NON-REACTIVE Lyme IgG 30 kDa Band NON-REACTIVE Lyme IgG 39 kDa Band NON-REACTIVE Lyme IgG 41 kDa Band NON-REACTIVE Lyme IgG 45 kDa Band NON-REACTIVE Lyme IgG 58 kDa Band NON-REACTIVE Lyme IgG 66 kDa Band NON-REACTIVE Lyme IgG 93 kDa Band NON-REACTIVE Lyme IgM Ab (WB) NEGATIVE (NEGATIVE) Lyme IgM 23 kDa Band REACTIVE A Lyme IgM 39 kDa Band NON-REACTIVE Lyme IgM 41 kDa Band NON-REACTIVE Medications Administered Current Inpatient Medications Aspirin (Aspirin 81 Mg Ectab) 81 mg PO [facility] Stop: 05/02/23 08:59 Last Admin: 04/06/23 08:46 Dose: 81 mg Atorvastatin Calcium (Atorvastatin 40 Mg Tab) 40 mg PO [facility] Stop: 05/02/23 08:59 Last Admin: 04/06/23 08:46 Dose: 40 mg Dextrose (Dextrose 50% 50 Ml Syringe) 25 - 50 ml IV UD PRN; Protocol PRN Reason: Hypoglycemia Protocol Stop: 05/01/23 07:07 Glucagon (Glucagon For Inj 1 Mg Vial) 1 mg SQ UD PRN; Protocol PRN Reason: Hypoglycemia Protocol Stop: 05/01/23 07:07 Glucose (Glucose 10 Tab/Tube) 4 - 8 tab PO UD PRN; Protocol PRN Reason: Hypoglycemia Treatment Stop: 05/01/23 07:07 Glucose (Glucose 40% Gel 15 Gm Tube) 15 - 30 gm PO UD PRN; Protocol PRN Reason: Hypoglycemia Protocol Stop: 05/01/23 07:07 Heparin Sodium (Porcine) (Heparin Sod 5,000 Unit/0.5 Ml Vial) 5,000 units SQ Q8 [facility] Stop: 05/01/23 05:59 Last Admin: 04/06/23 04:47 Dose: 5,000 units Acetaminophen 730 mg/ EMPTY (BAG) 73 mls @ 200 mls/hr IV Q6H PRN; Protocol PRN Reason: Pain/Fever Stop: 05/01/23 04:14 Last Infusion: 04/03/23 23:08 Dose: Infused Ceftriaxone Sodium 2,000 mg/ (Dextrose) 70 mls @ 100 mls/hr IV Q12H [facility]; Protocol Stop: 04/12/23 14:59 Last Infusion: 04/06/23 05:38 Dose: Infused Ampicillin Sodium 2,000 mg/ (Sodium Chloride) 100 mls @ 200 mls/hr IV Q4H [facility] Stop: 04/12/23 14:59 Last Infusion: 04/06/23 07:28 Dose: Infused Acyclovir Sodium 450 mg/ (Dextrose) 259 mls @ 250 mls/hr IV Q8H [facility]; Protocol Stop: 04/12/23 14:59 Last Infusion: 04/06/23 08:49 Dose: Infused Vancomycin HCl 1,250 mg/ (Sodium Chloride) 275 mls @ 200 mls/hr IV Q18H [facility] Stop: 04/14/23 13:59 Last Infusion: 04/06/23 03:52 Dose: Infused Dexamethasone 4 mg/ Syringe 1 mls @ 1 mls/min IV Q12H [facility] Stop: 05/05/23 08:59 Last Admin: 04/06/23 08:46 Dose: 1 mls/min Insulin Aspart (Insulin Aspart Per Unit Charge) 0 units SC ACHS [facility] Stop: 05/03/23 16:29 Last Admin: 04/06/23 08:41 Dose: 3 units Labetalol HCl (Labetalol Hcl Iv 5 Mg/Ml 20ml) 10 mg IV Q6H PRN PRN Reason: SBP>180 or DBP>100 Stop: 05/02/23 12:09 Last Admin: 04/06/23 04:54 Dose: 10 mg Lactobacillus Acidophilus (Advanced Probiotic 1250 Mg Capsule) 2 cap PO DAILY [facility] Stop: 05/05/23 12:29 Last Admin: 04/06/23 08:45 Dose: 2 cap Magnesium Oxide (Magnesium Oxide 400 Mg Tab) 400 mg PO BID [facility] Stop: 05/06/23 09:44 Melatonin (Melatonin 3 Mg Tab) 3 mg PO HS PRN PRN Reason: Sleep Stop: 05/04/23 19:46 Last Admin: 04/05/23 20:18 Dose: 3 mg Metoprolol Tartrate (Metoprolol Tartrate 25 Mg Tab) 25 mg PO BID [facility] Stop: 05/06/23 05:44 Last Admin: 04/06/23 06:10 Dose: 25 mg Miscellaneous (Carbohydrates For Hypoglycemia ) 15 - 30 gm PO UD PRN PRN Reason: Hypoglycemia Protocol Stop: 05/01/23 07:07 Miscellaneous Information (Vancomycin Consult Active) 1 each N/A UD PRN PRN Reason: Consult Stop: 05/02/23 15:14 Olanzapine (Olanzapine 10 Mg/2.1 Ml Sdv) 2 mg IM Q4H PRN; Protocol PRN Reason: Anxiety/Agitation Stop: 05/01/23 04:36 Last Admin: 04/06/23 00:28 Dose: 2 mg Ondansetron HCl (Ondansetron Inj 2 Mg/Ml 2 Ml Vial) 4 mg IV Q6H PRN PRN Reason: Nausea And Vomiting Stop: 05/03/23 10:30 Last Admin: 04/03/23 10:49 Dose: 4 mg Potassium Chloride (Potassium Chloride Crtab 20 Meq Tabcr) 40 meq PO NOW [facility] Stop: 04/06/23 09:41
[2023-04-06] MEDS: MAGNESIUM OXIDE 400 MG TAB PO SCH ×2 (10:35→20:18)
--- NOTE | 2023-04-06 11:50 | Neurology Progress Note ---
Date of Service April 06, 2023 Assessment & Plan (1) Meningoencephalitis: (2) Encephalopathy: (3) Left-sided weakness: Plan this patient had a significant, persistent encephalopathy. At MRI was felt to show a tiny right parietal acute stroke but repeat MRI showed that there was not a stroke. No other inflammation or acute changes were seen but the patient did have some mild old small vessel ischemia. EEG on April 03 showed very mild generalized slowing consistent with encephalopathy and without potentially epileptogenic discharges or focal findings. LP was positive for and infection likely viral. Early Lyme disease cannot entirely be excluded as she had 1 positive serum IgM band. Patient had no growth otherwise and has been covered with Rocephin, acyclovir, and vancomycin. Clinically she is improving in her limb strength is quite good today. She still has some slight confusion but is improved compared to earlier this week. Patient has an elevated white count which probably is due to the dexamethasone. She is afebrile. Confusion could be from steroids at certain antibiotics. Recommendations: 1. patient is scheduled for an infectious disease consult early this afternoon. 2. I am interested to see which medicines they recommend discontinuing, especially vancomycin and acyclovir. 3. Consider tapering off dexamethasone 4. Avoid neuroleptics and [employer] acting medication if possible. 5. I will follow. Overall, I spent a total of 60 minutes with this case including review of records, review of MRI films, direct evaluation the patient at bedside, reports degeneration, and discussion of the case with the patient and family at bedside, RN at bedside, and Dr. Meade and including differential diagnosis and treatment options. Admission and Anticipated Discharge Date Admission Date: April 01, 2023 Subjective Patient has no complaint of pain or headache. She is fatigued in general but is not dizzy and has no focal weakness or numbness. Her limb strength is improved compared to earlier this week. Nursing reports no new issues. Patient had an MRI of the brain April 01 which showed a possible punctate right parietal acute / subacute stroke. She did have some weakness left side greater than right although the weakness was bilateral. CT angiography of the head neck was unremarkable. On April 02 a repeat MRI of the brain showed no acute stroke but did show atrophy and old small vessel ischemic disease as before. It was felt that the diffusion image finding on the MRI from April 01 was an artifact. EEG on April 03 was remarkable for some mild generalized slowing only. There was nothing focal or potentially epileptogenic. An LP revealed 37 white cells ( 89% polys ) total protein of 47, 2 red cells, and a glucose of 84. there was no xanthochromia and the fluid was clear and colorless. CSF biofire was unremarkable for any organism. Lyme is pending. Inflammatory studies are pending as well. CSF Gram stain was negative and bacterial culture showed no growth. The patient has been on Rocephin, vancomycin, and acyclovir Since April 02. White count is still elevated at 16 with the rest of the CBC was unremarkable. Chem profile reveals a slightly low potassium ( improved from yesterday) and a glucose of 127. Magnesium was slightly low at 1.6. Results & Data Vital Signs (Past 12 Hours) Vital Signs Temp Pulse Pulse Resp BP BP Pulse Ox 04/06/23 08:35 36.8 C 81 22 168/96 H 97 04/06/23 08:12 75 04/06/23 05:35 74 171/106 H 04/06/23 04:54 83 168/106 H 04/06/23 04:33 36.7 C 83 16 168/106 H 97 O2 Del Method 04/06/23 08:35 Room Air 04/06/23 08:12 04/06/23 05:35 04/06/23 04:54 04/06/23 04:33 Room Air Exam (Neuro) Physical Exam: She is awake and alert. Her speech is slightly dysarthric but not aphasic. She is pleasant and cooperative. She does seem slightly confused with a few things but was oriented to her name, age, date and all the names of the family members present in the room. Extraocular eye muscles are intact without nystagmus. There is no facial droop. Tongue was midline. Coordination seems normal in the limbs without obvious tremor or ataxia. Strength seemed 5/5 diffusely in all major muscle groups in the arms and legs both proximally and distally. Toes were downgoing with plantar stimulation bilaterally. Reflexes 1/4 in all 4 limbs. 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
[2023-04-06 12:53] LABS: Cryptococcal Antigen Not Detected (Not Detected); EBV DNA Quant PCR Not Detected copies/mL; EBV DNA Quant Source CSF; Source CSF
[2023-04-06] MEDS: MELATONIN 3 MG TAB PO PRN (20:18)
[2023-04-07] MEDS: AMPICILLIN 2,000 MG in SODIUM CHLOR 0.9% AD-VAN 100 ML IV SCH ×6 (02:36→23:09)
[2023-04-07] MEDS: cefTRIAXone SODIUM 2,000 MG in DEXTROSE 5% 50 ML IV SCH ×2 (04:57→17:01)
[2023-04-07] MEDS: HEPARIN SOD 5,000 UNIT/0.5 ML VIAL SQ SCH ×3 (04:57→20:17)
[2023-04-07 06:33] LABS: Hematocrit (blood only) 37.9 % (37.0-47.0); Hemoglobin 13.2 g/dl (12.0-16.0); Mean Corpuscular Hemoglobin 31.2 pg (25.0-34.0); Mean Corpuscular Hgb Conc 34.8 g/dL (32.0-36.0); Mean Corpuscular Volume 89.6 fL (80.0-100.0); Platelet Count 242 K/uL (130-400); RDW Coefficient of Variation 12.7 % (11.5-14.5); RDW Standard Deviation 41.7 fL (36.4-46.3); Red Blood Count 4.23 M/uL (4.20-5.40); White Blood Count 12.15 K/ul (4.8-10.8)
[2023-04-07 06:54] LABS: BUN Creatinine Ratio 34.9 (10-20); Calcium 8.8 mg/dl (8.6-10.3); Creatinine Clr Calc Pharmacy 52.6 ml/min; Est GFR (African American) 106.1 ml/min; Est GFR (Non-African American) 91.5 ml/min; Magnesium 1.9 mg/dl (1.7-2.4); Phosphorus 4.3 mg/dl (2.5-4.9)
[2023-04-07] MEDS: INSULIN ASPART PER UNIT CHARGE SC SCH ×4 (09:49→20:56)
[2023-04-07] MEDS: dexAMETHasone 4 MG in SYRINGE 0 ML IV SCH ×2 (09:52→20:18)
[2023-04-07] MEDS: ASPIRIN 81 MG ECTAB PO SCH (09:53)
[2023-04-07] MEDS: ADVANCED PROBIOTIC 1250 MG CAPSULE PO SCH (09:54)
[2023-04-07] MEDS: ATORVASTATIN 40 MG TAB PO SCH (09:54)
[2023-04-07] MEDS: MAGNESIUM OXIDE 400 MG TAB PO SCH ×2 (09:54→20:19)
[2023-04-07] MEDS: METOPROLOL TARTRATE 25 MG TAB PO SCH ×2 (09:55→20:17)
--- NOTE | 2023-04-07 10:57 | Hospitalist Progress Note ---
Date of Service April 07, 2023 Assessment & Plan (1) Left-sided weakness: Plan: Stroke Like Symptoms Acute metabolic Encephalopathy DD: Meningitis/Encephalitis, Less likely seizure, CVA --Initial MRI Brain on 04/01/23:There is an acute punctate infarct within the right parietal lobe. Mild atrophy and microvascular ischemic changes. --Head CTA:Negative CT angiogram of the head. --Neck CTA:Negative CTA neck. --ECHO: Left ventricle systolic function is normal. EF 60 to 65%. Mild concentric LVH. Aortic valve sclerosis mild, without significant aortic valvular stenosis. Mild tricuspid regurgitation. Prominent eustachian valve is noted. Chiari network is noted. Injection of contrast documented no interatrial shunt. --Repeat MRI on 04/02/23:No acute intracranial abnormality is identified. Specifically, there is no MRI evidence of acute or subacute infarct. The tiny focus of restricted diffusion questioned in the right parietal lobe on yesterday's examination may have been artifactual. This was not corroborated on today's examination. -- Total cholesterol 202, LDL 107. --Ammonia 14 --No significant hypercarbia on VBG --Peripheral smear not suggestive of anaplasmosis, Babesia --Anaplasma, Babesia DNA pending --IgM, IgG for Lyme's negative --Other serological test for Lyme's pending --S/P lumbar puncture on 04/03/2023: WBC 37, glucose 84, total protein 47.7. CSF negative for CMV, enterovirus, E. coli, H. influenzae, HSV, HSV, Listeria, Neisseria, staph, varicella-zoster Other CSF studies, cultures pending --EEG showed some very mild abnormality (dysrhythmia) during wakefulness. Drowsiness produces no further activation. No focal abnormalities or potentially epileptogenic discharges were seen. Consistent with encephalopathy HbA1c 5.8 Continue aspirin, Lipitor for now Appreciate Neurology input - 04/06/23 - Clinically she is improving in her limb strength is quite good today. She still has some slight confusion but is improved compared to earlier this week.Patient has an elevated white count which probably is due to the dexamethasone. She is afebrile.Confusion could be from steroids and certain antibiotics. Awaiting ID recs. Continue Neuro Checks Continue Rocephin, vancomycin, ampicillin, Acyclovir and dexamethasone -> discussed w/ ID (04/06/23) - will stop vanco and acyclovir Confusion on and off PT OT as able Leukocytosis secondary to steroids likely > now improved WBC down to 12K (04/07/23) Consulted infectious disease for further recommendations - recommend ok to stop vanco and valacyclovir - recommend to repeat LP w/ opening pressure - pt declines another LP For completeness also recommend to order HIV, syphilis, histoplasma, Bartonella, Q fever, diverticulosis, West Nile virus, and Brucella. All cultures/studies will need to be followed to completion. all studies were ordered 04/07 patient is clinically much improved, she is alert oriented and ambulatory. Denies any headache. Discussed with neurology, and they feel there is no need for repeat LP. 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 As patient is a mbulatory, will remove Crabtree catheter. Paroxysmal atrial tachycardia Normal TSH Started on metoprolol Replace electrolytes as needed Monitor Hyponatremia Hypochloremia Likely due to poor oral intake Received IV fluids Sodium 140 today Monitor ? Uncontrolled hypertension PACs Started on metoprolol 25 mg BID IV labetalol PRN for now Monitor BP Adjust antihypertensives as needed Prediabetes HbA1c 5.8 DVT Px: Lovenox SQ Code Status Full code Disposition PT OT prior to discharge Admission and Anticipated Discharge Date Admission Date: April 01, 2023 Subjective Patient is seen and examined at bedside, seen in follow up of AMS, concern for c va initially, now treated for poss. meningitis Currently laying in bed, in no acute distress, she is able to answer simple questions appropriately and seems overall improved - even by at the bedside Slept overnight, no agitation. Pt offers no complaints, denies any chest pain, dyspnea, dizziness, abdominal pain, headache, focal weakness, change in vision Discussed w/Neurology and ID yesterday and again with ID this AM - they recommend repeat LP w/ opening pressure and pt and would prefer not to proceed - want to think about it longer. They state that they are self-pay as they are [place], and really would not want to do another LP. Discussed with ID, and they would like to review all parameters and continue to recommend LP. In addition I discussed with radiology, they stated that opening pressure was normal on the initial LP. This was communicated with ID as well. 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 No need for LP. Update: per nursing staff pt is now ambulating -> will remove Crabtree catheter Review of Systems Review of Systems: All systems reviewed & are unremarkable except as noted in Subjective Physical Exam Physical Exam: General Appearance:Thin, frail, no apparent distress Head: normocephalic, Atraumatic Eyes: normal inspection, EOMI Respiratory/Chest: Normal breath sounds, CTA, No accessory muscle use Cardiovascular: S1, S2, No murmur Abdomen/GI:Soft, Non tender, Bowel sounds present Extremities/Musculoskeletal:normal inspection, no edema Neurologic/Psych: Alert, awake, oriented x2, grossly no focal deficits Skin: normal color, warm Results & Data Results & Data Vital Signs (Past 12 Hours) Vital Signs Temp Pulse Pulse Resp BP Pulse Ox O2 Del Method 04/07/23 07:31 36.7 C 82 16 154/99 H 94 Room Air 04/07/23 04:08 36.8 C 66 20 142/79 H 97 Room Air 04/06/23 23:46 65 Laboratory Results 04/07/23 04/07/23 04/07/23 Range/Units 10:50 10:50 10:50 WBC (4.8-10.8) K/ul RBC (4.20-5.40) M/uL Hgb (12.0-16.0) g/dl Hct (37.0-47.0) % MCV (80.0-100.0) fL MCH (25.0-34.0) pg MCHC (32.0-36.0) g/dL RDW Std Deviation (36.4-46.3) fL RDW Coeff of Alyssa (11.5-14.5) % Plt Count (130-400) K/uL MPV (9.4-12.4) fL Sodium (136-145) mmol/L Potassium (3.5-5.1) mmol/L Chloride (98-107) mmol/L Carbon Dioxide (21-32) mmol/L Anion Gap (3-11) BUN (6-23) mg/dl Creatinine (0.6-1.2) mg/dl Est Cr Clr Drug Dosing ml/min Est GFR ( Amer) ml/min Est GFR (Non-Af Amer) ml/min BUN/Creatinine Ratio (10-20) Glucose (70-99(Fasting)) mg/dl POC Glucose (70-99) mg/dl Calcium (8.6-10.3) mg/dl Phosphorus (2.5-4.9) mg/dl Magnesium (1.7-2.4) mg/dl Random Vancomycin (10-20) mcg/ml RPR Pending Bartonella henselae IgG Bartonella henselae IgM Bartonella jama IgG Bartonella jama IgM Brucella IgG Antibody Pending Brucella IgM Antibody Pending Cryptococcus Source Cryptococcal Ag (Latex) (Not Detected) E. chaffeensis IgG Ab Pending E. chaffeensis IgM Ab Pending E. chaffeensis Interp Pending E. chaffeensis Comment Pending West Nile Virus Source Pending West Nile Virus IgM Ab Pending West Nile RNA (RT-PCR) Pending EBV Source EBV DNA, Quant Log cps/mL EBV DNA (PCR) copies/mL Histoplasma H Band Ab Histoplasma M Band Ab HIV-1 RNA copies/mL HIV-1 RNA logcopies/mL Q Fever Phase I IgG Ab Pending Q Fever Phase I IgM Ab Pending Q Fever Phase II IgG Ab Pending Q Fever Phase II IgM Ab Pending 04/07/23 04/07/23 04/07/23 Range/Units 10:50 07:29 06:14 WBC (4.8-10.8) K/ul RBC (4.20-5.40) M/uL Hgb (12.0-16.0) g/dl Hct (37.0-47.0) % MCV (80.0-100.0) fL MCH (25.0-34.0) pg MCHC (32.0-36.0) g/dL RDW Std Deviation (36.4-46.3) fL RDW Coeff of Alyssa (11.5-14.5) % Plt Count (130-400) K/uL MPV (9.4-12.4) fL Sodium 140 (136-145) mmol/L Potassium 4.0 (3.5-5.1) mmol/L Chloride 103 (98-107) mmol/L Carbon Dioxide 30 (21-32) mmol/L Anion Gap 7 (3-11) BUN 22 (6-23) mg/dl Creatinine 0.63 (0.6-1.2) mg/dl Est Cr Clr Drug Dosing 52.6 ml/min Est GFR ( Amer) 106.1 ml/min Est GFR (Non-Af Amer) 91.5 ml/min BUN/Creatinine Ratio 34.9 H (10-20) Glucose 136 H (70-99(Fasting)) mg/dl POC Glucose 115 H (70-99) mg/dl Calcium 8.8 (8.6-10.3) mg/dl Phosphorus 4.3 (2.5-4.9) mg/dl Magnesium 1.9 (1.7-2.4) mg/dl Random Vancomycin (10-20) mcg/ml RPR Bartonella henselae IgG Pending Bartonella henselae IgM Pending Bartonella jama IgG Pending Bartonella jama IgM Pending Brucella IgG Antibody Brucella IgM Antibody Cryptococcus Source Cryptococcal Ag (Latex) (Not Detected) E. chaffeensis IgG Ab E. chaffeensis IgM Ab E. chaffeensis Interp E. chaffeensis Comment West Nile Virus Source West Nile Virus IgM Ab West Nile RNA (RT-PCR) EBV Source EBV DNA, Quant Log cps/mL EBV DNA (PCR) copies/mL Histoplasma H Band Ab Pending Histoplasma M Band Ab Pending HIV-1 RNA copies/mL Pending HIV-1 RNA logcopies/mL Pending Q Fever Phase I IgG Ab Q Fever Phase I IgM Ab Q Fever Phase II IgG Ab Q Fever Phase II IgM Ab 04/07/23 04/06/23 04/06/23 Range/Units 06:14 20:16 16:21 WBC 12.15 H (4.8-10.8) K/ul RBC 4.23 (4.20-5.40) M/uL Hgb 13.2 (12.0-16.0) g/dl Hct 37.9 (37.0-47.0) % MCV 89.6 (80.0-100.0) fL MCH 31.2 (25.0-34.0) pg MCHC 34.8 (32.0-36.0) g/dL RDW Std Deviation 41.7 (36.4-46.3) fL RDW Coeff of Alyssa 12.7 (11.5-14.5) % Plt Count 242 (130-400) K/uL MPV 10.0 (9.4-12.4) fL Sodium (136-145) mmol/L Potassium (3.5-5.1) mmol/L Chloride (98-107) mmol/L Carbon Dioxide (21-32) mmol/L Anion Gap (3-11) BUN (6-23) mg/dl Creatinine (0.6-1.2) mg/dl Est Cr Clr Drug Dosing ml/min Est GFR ( Amer) ml/min Est GFR (Non-Af Amer) ml/min BUN/Creatinine Ratio (10-20) Glucose (70-99(Fasting)) mg/dl POC Glucose 105 H 126 H (70-99) mg/dl Calcium (8.6-10.3) mg/dl Phosphorus (2.5-4.9) mg/dl Magnesium (1.7-2.4) mg/dl Random Vancomycin (10-20) mcg/ml RPR Bartonella henselae IgG Bartonella henselae IgM Bartonella jama IgG Bartonella jama IgM Brucella IgG Antibody Brucella IgM Antibody Cryptococcus Source Cryptococcal Ag (Latex) (Not Detected) E. chaffeensis IgG Ab E. chaffeensis IgM Ab E. chaffeensis Interp E. chaffeensis Comment West Nile Virus Source West Nile Virus IgM Ab West Nile RNA (RT-PCR) EBV Source EBV DNA, Quant Log cps/mL EBV DNA (PCR) copies/mL Histoplasma H Band Ab Histoplasma M Band Ab HIV-1 RNA copies/mL HIV-1 RNA logcopies/mL Q Fever Phase I IgG Ab Q Fever Phase I IgM Ab Q Fever Phase II IgG Ab Q Fever Phase II IgM Ab 04/06/23 04/06/23 04/03/23 Range/Units 12:11 11:42 Unknown WBC (4.8-10.8) K/ul RBC (4.20-5.40) M/uL Hgb (12.0-16.0) g/dl Hct (37.0-47.0) % MCV (80.0-100.0) fL MCH (25.0-34.0) pg MCHC (32.0-36.0) g/dL RDW Std Deviation (36.4-46.3) fL RDW Coeff of Alyssa (11.5-14.5) % Plt Count (130-400) K/uL MPV (9.4-12.4) fL Sodium (136-145) mmol/L Potassium (3.5-5.1) mmol/L Chloride (98-107) mmol/L Carbon Dioxide (21-32) mmol/L Anion Gap (3-11) BUN (6-23) mg/dl Creatinine (0.6-1.2) mg/dl Est Cr Clr Drug Dosing ml/min Est GFR ( Amer) ml/min Est GFR (Non-Af Amer) ml/min BUN/Creatinine Ratio (10-20) Glucose (70-99(Fasting)) mg/dl POC Glucose 95 (70-99) mg/dl Calcium (8.6-10.3) mg/dl Phosphorus (2.5-4.9) mg/dl Magnesium (1.7-2.4) mg/dl Random Vancomycin 14.7 (10-20) mcg/ml RPR Bartonella henselae IgG Bartonella henselae IgM Bartonella jama IgG Bartonella jama IgM Brucella IgG Antibody Brucella IgM Antibody Cryptococcus Source CSF Cryptococcal Ag (Latex) Not Detected (Not Detected) E. chaffeensis IgG Ab E. chaffeensis IgM Ab E. chaffeensis Interp E. chaffeensis Comment West Nile Virus Source West Nile Virus IgM Ab West Nile RNA (RT-PCR) EBV Source CSF EBV DNA, Quant Not Detected Log cps/mL EBV DNA (PCR) Not Detected copies/mL Histoplasma H Band Ab Histoplasma M Band Ab HIV-1 RNA copies/mL HIV-1 RNA logcopies/mL Q Fever Phase I IgG Ab Q Fever Phase I IgM Ab Q Fever Phase II IgG Ab Q Fever Phase II IgM Ab Medications Administered Current Inpatient Medications Aspirin ([facility] 81 Mg E[facility]ab) [facility]: 05/02/23 08:59 Last Admin: 04/07/23 09:53 Dose: 81 mg Atorvastatin Calcium (Atorvastatin 40 Mg Tab) 40 mg PO QAM [facility] Stop: 05/02/23 08:59 Last Admin: 04/07/23 09:54 Dose: 40 mg Dextrose (Dextrose 50% 50 Ml Syringe) 25 - 50 ml IV UD PRN; Protocol PRN Reason: Hypoglycemia Protocol Stop: 05/01/23 07:07 Glucagon (Glucagon For Inj 1 Mg Vial) 1 mg SQ UD PRN; Protocol PRN Reason: Hypoglycemia Protocol Stop: 05/01/23 07:07 Glucose (Glucose 10 Tab/Tube) 4 - 8 tab PO UD PRN; Protocol PRN Reason: Hypoglycemia Treatment Stop: 05/01/23 07:07 Glucose (Glucose 40% Gel 15 Gm Tube) 15 - 30 gm PO UD PRN; Protocol PRN Reason: Hypoglycemia Protocol Stop: 05/01/23 07:07 Heparin Sodium (Porcine) (Heparin Sod 5,000 Unit/0.5 Ml Vial) 5,000 units SQ Q8 JESSICA Stop: 05/01/23 05:59 Last Admin: 04/07/23 04:57 Dose: 5,000 units Acetaminophen 730 mg/ EMPTY (BAG) 73 mls @ 200 mls/hr IV Q6H PRN; Protocol PRN Reason: Pain/Fever Stop: 05/01/23 04:14 Last Infusion: 04/03/23 23:08 Dose: Infused Ceftriaxone Sodium 2,000 mg/ (Dextrose) 70 mls @ 100 mls/hr IV Q12H [facility]; Protocol Stop: 04/12/23 14:59 Last Infusion: 04/07/23 05:49 Dose: Infused Ampicillin Sodium 2,000 mg/ (Sodium Chloride) 100 mls @ 200 mls/hr IV Q4H [facility] Stop: 04/12/23 14:59 Last Admin: 04/07/23 10:01 Dose: 200 mls/hr Dexamethasone 4 mg/ Syringe 1 mls @ 1 mls/min IV Q12H [facility] Stop: 05/05/23 08:59 Last Admin: 04/07/23 09:52 Dose: 1 mls/min Insulin Aspart (Insulin Aspart Per Unit Charge) 0 units SC ACHS [facility] Stop: 05/03/23 16:29 Last Admin: 04/07/23 09:49 Dose: 3 units Labetalol HCl (Labetalol Hcl Iv 5 Mg/Ml 20ml) 10 mg IV Q6H PRN PRN Reason: SBP>180 or DBP>100 Stop: 05/02/23 12:09 Last Admin: 04/06/23 04:54 Dose: 10 mg Lactobacillus Acidophilus (Advanced Probiotic 1250 Mg Capsule) 2 cap PO DAILY JESSICA Stop: 05/05/23 12:29 Last Admin: 04/07/23 09:54 Dose: 2 cap Magnesium Oxide (Magnesium Oxide 400 Mg Tab) 400 mg PO BID JESSICA Stop: 05/06/23 09:59 Last Admin: 04/07/23 09:54 Dose: 400 mg Melatonin (Melatonin 3 Mg Tab) 3 mg PO HS PRN PRN Reason: Sleep Stop: 05/04/23 19:46 Last Admin: 04/06/23 20:18 Dose: 3 mg Metoprolol Tartrate (Metoprolol Tartrate 25 Mg Tab) 25 mg PO BID JESSICA Stop: 05/06/23 05:44 Last Admin: 04/07/23 09:55 Dose: 25 mg Miscellaneous (Carbohydrates For Hypoglycemia ) 15 - 30 gm PO UD PRN PRN Reason: Hypoglycemia Protocol Stop: 05/01/23 07:07 Miscellaneous Information (Vancomycin Consult Active) 1 each N/A UD PRN PRN Reason: Consult Stop: 05/02/23 15:14 Olanzapine (Olanzapine 10 Mg/2.1 Ml Sdv) 2 mg IM Q4H PRN; Protocol PRN Reason: Anxiety/Agitation Stop: 05/01/23 04:36 Last Admin: 04/06/23 00:28 Dose: 2 mg Ondansetron HCl (Ondansetron Inj 2 Mg/Ml 2 Ml Vial) 4 mg IV Q6H PRN PRN Reason: Nausea And Vomiting Stop: 05/03/23 10:30 Last Admin: 04/03/23 10:49 Dose: 4 mg
--- NOTE | 2023-04-07 11:22 | Neurology Progress Note ---
Date of Service April 07, 2023 Assessment & Plan (1) Meningoencephalitis: (2) Encephalopathy: (3) Left-sided weakness: Plan This patient had a significant, persistent encephalopathy. At MRI was felt to show a tiny right parietal acute stroke but repeat MRI showed that there was not a stroke. No other inflammation or acute changes were seen but the patient did have some mild old small vessel ischemia. EEG on April 03 showed very mild generalized slowing consistent with encephalopathy and without potentially epileptogenic discharges or focal findings. LP was positive for an infection, likely viral. Early Lyme disease cannot entirely be excluded as she had 1 positive serum IgM band. Patient had no growth otherwise and has been covered with Rocephin, acyclovir, and vancomycin. Today, patient is essentially back to baseline neurologically and clinically. Patient had an elevated white count which probably is due to the dexamethasone. She is afebrile. Recommendations: 1. I see no reason to do additional neurologic testing including LP at this time. She is doing remarkably well clinically. 2. I am not certain the patient even needs to be on an antibiotic although to continue with IV Rocephin (or p.o. doxycycline) is reasonable 3. increase activity as able. Overall, I spent a total of 35 minutes with this case including review of records, direct evaluation the patient at bedside, report generation, and discussion of the case with the patient and family at bedside, RN at bedside, and Dr. Meade, including differential diagnosis and treatment options. Admission and Anticipated Discharge Date Admission Date: April 01, 2023 Subjective patient feels very well. She has no complaint of pain or headache except some pain at her IV site in the right arm. She is doing well, up sitting in chair and walking. Blood pressure is 154/99 and she is afebrile. Nursing reports no new issues. Results & Data Vital Signs (Past 12 Hours) Vital Signs Temp Pulse Pulse Resp BP Pulse Ox O2 Del Method 04/07/23 07:31 36.7 C 82 16 154/99 H 94 Room Air 04/07/23 04:08 36.8 C 66 20 142/79 H 97 Room Air 04/06/23 23:46 65 Exam (Neuro) Physical Exam: She is awake and alert. Her speech is normal. Her thought processes and memory are quite good. Mood and affect are normal appropriate. Extraocular eye muscles are intact without nystagmus. There is no facial droop. Coordination is normal in the arms without tremor or ataxia. Strength seems symmetrical in the limbs. She is doing quite well sitting up in chair. 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
[2023-04-07] MEDS: MELATONIN 3 MG TAB PO PRN (20:17)
[2023-04-08] MEDS: AMPICILLIN 2,000 MG in SODIUM CHLOR 0.9% AD-VAN 100 ML IV SCH ×3 (03:33→12:03)
[2023-04-08] MEDS: cefTRIAXone SODIUM 2,000 MG in DEXTROSE 5% 50 ML IV SCH (04:24)
[2023-04-08] MEDS: HEPARIN SOD 5,000 UNIT/0.5 ML VIAL SQ SCH ×2 (05:59→14:26)
[2023-04-08 07:29] LABS: Hematocrit (blood only) 36.3 % (37.0-47.0); Hemoglobin 12.5 g/dl (12.0-16.0); Mean Corpuscular Hemoglobin 31.1 pg (25.0-34.0); Mean Corpuscular Hgb Conc 34.4 g/dL (32.0-36.0); Mean Corpuscular Volume 90.3 fL (80.0-100.0); Mean Platelet Volume 10.1 fL (9.4-12.4); Platelet Count 250 K/uL (130-400); RDW Coefficient of Variation 12.9 % (11.5-14.5); RDW Standard Deviation 42.6 fL (36.4-46.3); Red Blood Count 4.02 M/uL (4.20-5.40); White Blood Count 18.13 K/ul (4.8-10.8)
[2023-04-08 07:54] LABS: BUN Creatinine Ratio 42.2 (10-20); Calcium 8.4 mg/dl (8.6-10.3); Creatinine Clr Calc Pharmacy 55.4 ml/min; Est GFR (African American) 105.5 ml/min
--- NOTE | 2023-04-08 07:55 | Hospitalist Progress Note ---
Date of Service April 08, 2023 Assessment & Plan (1) Left-sided weakness: Plan: Stroke Like Symptoms Acute metabolic Encephalopathy DD: Meningitis/Encephalitis, Less likely seizure, CVA --Initial MRI Brain on 04/01/23:There is an acute punctate infarct within the right parietal lobe. Mild atrophy and microvascular ischemic changes. --Head CTA:Negative CT angiogram of the head. --Neck CTA:Negative CTA neck. --ECHO: Left ventricle systolic function is normal. EF 60 to 65%. Mild concentric LVH. Aortic valve sclerosis mild, without significant aortic valvular stenosis. Mild tricuspid regurgitation. Prominent eustachian valve is noted. Chiari network is noted. Injection of contrast documented no interatrial shunt. --Repeat MRI on 04/02/23:No acute intracranial abnormality is identified. Specifically, there is no MRI evidence of acute or subacute infarct. The tiny focus of restricted diffusion questioned in the right parietal lobe on yesterday's examination may have been artifactual. This was not corroborated on today's examination. -- Total cholesterol 202, LDL 107. --Ammonia 14 --No significant hypercarbia on VBG --Peripheral smear not suggestive of anaplasmosis, Babesia --Anaplasma, Babesia DNA pending --IgM, IgG for Lyme's negative - except for one IgM band which is positive --S/P lumbar puncture on 04/03/2023: WBC 37, glucose 84, total protein 47.7. CSF negative for CMV, enterovirus, E. coli, H. influenzae, HSV, HSV, Listeria, Neisseria, staph, varicella-zoster Other CSF studies, cultures pending --EEG showed some very mild abnormality (dysrhythmia) during wakefulness. Drowsiness produces no further activation. No focal abnormalities or potentially epileptogenic discharges were seen. Consistent with encephalopathy HbA1c 5.8 Continue aspirin, Lipitor for now Appreciate Neurology input - 04/06/23 - Clinically she is improving in her limb strength is quite good today. She still has some slight confusion but is improved compared to earlier this week.Patient has an elevated white count which probably is due to the dexamethasone. She is afebrile.Confusion could be from steroids and certain antibiotics. Awaiting ID recs. Continue Neuro Checks Continue Rocephin, vancomycin, ampicillin, Acyclovir and dexamethasone -> discussed w/ ID (04/06/23) - will stop vanco and acyclovir Confusion on and off PT OT as able Leukocytosis secondary to steroids likely > now improved WBC down to 12K (04/07/23) Consulted infectious disease for further recommendations - recommend ok to stop vanco and valacyclovir - recommend to repeat LP w/ opening pressure - pt declines another LP For completeness also recommend to order HIV, syphilis, histoplasma, Bartonella, Q fever, diverticulosis, West Nile virus, and Brucella. All cultures/studies will need to be followed to completion. all studies were ordered 04/07 patient is clinically much improved, she is alert oriented and ambulatory. Denies any headache. Discussed with neurology, and they feel there is no need for repeat LP. 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 As patient is a mbulatory, will remove Crabtree catheter. 04/08 patient continues to be clinically improved and very close to her baseline. Patient and family would like patient to be discharged. Discussed with infecti ous disease, Dr. Veliz today, and recommend to discharge on doxycycline 7 days for possible Lyme meningitis. Discussed with the family that we do not have clear answer on the cause of her clinical status. If she was to deteriorate at home, she should return back to hospital, pt and family in agreement with that. Paroxysmal atrial tachycardia Normal TSH Started on metoprolol Replace electrolytes as needed Monitor Hyponatremia -resolved Hypochloremia Likely due to poor oral intake Received IV fluids ? Uncontrolled hypertension PACs Started on metoprolol 25 mg BID IV labetalol PRN while inpt Monitor BP - well controlled now Adjust antihypertensives as needed Prediabetes HbA1c 5.8 DVT Px: Lovenox SQ Code Status Full code Disposition PT OT prior to discharge Admission and Anticipated Discharge Date Admission Date: April 01, 2023 Subjective Patient is seen and examined at bedside, seen in follow up of AMS, concern for cva initially, now treated for poss. meningitis Currently laying in bed, in no acute distress, she is able to answer questions appropriately and ambulate in the hallway, overall she is improved and close to baseline. Slept overnight, no agitation. Pt offers no complaints, denies any chest pain, dyspnea, dizziness, abdominal pain, headache, focal weakness, change in vision Discussed with ID today, Dr. Veliz and patient and the family at the bedside. Patient and family would like to be discharged if possible. After discussing with ID, will discharge on doxycycline. Patient understands that if her clinical status worsens, she is to return back to the hospital. Review of Systems Review of Systems: All systems reviewed & are unremarkable except as noted in Subjective Physical Exam Physical Exam: General Appearance: Thin, frail, no apparent distress Head: normocephalic, Atraumatic Eyes: normal inspection, EOMI Respiratory/Chest: Normal breath sounds, CTA, No accessory muscle use Cardiovascular: S1, S2, No murmur Abdomen/GI:Soft, Non tender, Bowel sounds present Extremities/Musculoskeletal:normal inspection, no edema Neurologic/Psych: Alert, awake, oriented x3, speech fluent, no facial asymmetry, moves extremities Skin: normal color, warm Results & Data Results & Data Vital Signs (Past 12 Hours) Vital Signs Temp Pulse Pulse Resp BP BP Pulse Ox 04/08/23 04:25 36.5 C 63 20 145/83 H 97 04/08/23 03:20 54 L 04/07/23 23:03 36.6 C 58 L 20 124/67 96 04/07/23 20:01 36.8 C 75 22 129/103 H 97 O2 Del Method 04/08/23 04:25 Room Air 04/08/23 03:20 04/07/23 23:03 Room Air 04/07/23 20:01 Room Air Medications Administered Current Inpatient Medications Aspirin (Aspirin 81 Mg Ectab) 81 mg PO QAM [facility] Stop: 05/02/23 08:59 Last Admin: 04/07/23 09:53 Dose: 81 mg Atorvastatin Calcium (Atorvastatin 40 Mg Tab) 40 mg PO QAM [facility] Stop: 05/02/23 08:59 Last Admin: 04/07/23 09:54 Dose: 40 mg Dextrose (Dextrose 50% 50 Ml Syringe) 25 - 50 ml IV UD PRN; Protocol PRN Reason: Hypoglycemia Protocol Stop: 05/01/23 07:07 Glucagon (Glucagon For Inj 1 Mg Vial) 1 mg SQ UD PRN; Protocol PRN Reason: Hypoglycemia Protocol Stop: 05/01/23 07:07 Glucose (Glucose 10 Tab/Tube) 4 - 8 tab PO UD PRN; Protocol PRN Reason: Hypoglycemia Treatment Stop: 05/01/23 07:07 Glucose (Glucose 40% Gel 15 Gm Tube) 15 - 30 gm PO UD PRN; Protocol PRN Reason: Hypoglycemia Protocol Stop: 05/01/23 07:07 Heparin Sodium (Porcine) (Heparin Sod 5,000 Unit/0.5 Ml Vial) 5,000 units SQ Q8 JESSICA Stop: 05/01/23 05:59 Last Admin: 04/08/23 05:59 Dose: 5,000 units Acetaminophen 730 mg/ EMPTY (BAG) 73 mls @ 200 mls/hr IV Q6H PRN; Protocol PRN Reason: Pain/Fever Stop: 05/01/23 04:14 Last Infusion: 04/03/23 23:08 Dose: Infused Ceftriaxone Sodium 2,000 mg/ (Dextrose) 70 mls @ 100 mls/hr IV Q12H JESSICA; Protocol Stop: 04/12/23 14:59 Last Infusion: 04/08/23 06:05 Dose: Infused Ampicillin Sodium 2,000 mg/ (Sodium Chloride) 100 mls @ 200 mls/hr IV Q4H [facility] Stop: 04/12/23 14:59 Last Infusion: 04/08/23 04:16 Dose: Infused Dexamethasone 4 mg/ Syringe 1 mls @ 1 mls/min IV Q12H [facility] Stop: 05/05/23 08:59 Last Admin: 04/07/23 20:18 Dose: 1 mls/min Insulin Aspart (Insulin Aspart Per Unit Charge) 0 units SC ACHS [facility] Stop: 05/03/23 16:29 Last Admin: 04/07/23 20:56 Dose: Not Given Labetalol HCl (Labetalol Hcl Iv 5 Mg/Ml 20ml) 10 mg IV Q6H PRN PRN Reason: SBP>180 or DBP>100 Stop: 05/02/23 12:09 Last Admin: 04/06/23 04:54 Dose: 10 mg Lactobacillus Acidophilus (Advanced Probiotic 1250 Mg Capsule) 2 cap PO DAILY [facility] Stop: 05/05/23 12:29 Last Admin: 04/07/23 09:54 Dose: 2 cap Magnesium Oxide (Magnesium Oxide 400 Mg Tab) 400 mg PO BID [facility] Stop: 05/06/23 09:59 Last Admin: 04/07/23 20:19 Dose: 400 mg Melatonin (Melatonin 3 Mg Tab) 3 mg PO HS PRN PRN Reason: Sleep Stop: 05/04/23 19:46 Last Admin: 04/07/23 20:17 Dose: 3 mg Metoprolol Tartrate (Metoprolol Tartrate 25 Mg Tab) 25 mg PO BID [facility] Stop: 05/06/23 05:44 Last Admin: 04/07/23 20:17 Dose: 25 mg Miscellaneous (Carbohydrates For Hypoglycemia ) 15 - 30 gm PO UD PRN PRN Reason: Hypoglycemia Protocol Stop: 05/01/23 07:07 Olanzapine (Olanzapine 10 Mg/2.1 Ml Sdv) 2 mg IM Q4H PRN; Protocol PRN Reason: Anxiety/Agitation Stop: 05/01/23 04:36 Last Admin: 04/06/23 00:28 Dose: 2 mg Ondansetron HCl (Ondansetron Inj 2 Mg/Ml 2 Ml Vial) 4 mg IV Q6H PRN PRN Reason: Nausea And Vomiting Stop: 05/03/23 10:30 Last Admin: 04/03/23 10:49 Dose: 4 mg
[2023-04-08] MEDS: ADVANCED PROBIOTIC 1250 MG CAPSULE PO SCH (08:55)
[2023-04-08] MEDS: dexAMETHasone 4 MG in SYRINGE 0 ML IV SCH (08:55)
[2023-04-08] MEDS: METOPROLOL TARTRATE 25 MG TAB PO SCH (08:55)
[2023-04-08] MEDS: ATORVASTATIN 40 MG TAB PO SCH (08:55)
[2023-04-08] MEDS: MAGNESIUM OXIDE 400 MG TAB PO SCH (08:55)
[2023-04-08] MEDS: ASPIRIN 81 MG ECTAB PO SCH (08:55)
[2023-04-08] MEDS: INSULIN ASPART PER UNIT CHARGE SC SCH ×2 (08:58→12:04)
--- NOTE | 2023-04-08 15:26 | Discharge Summary ---
Date of Service April 08, 2023 Admission HPI Per Admitting Provider No significant medical history. History obtained from patient, family, and records. Limited history from patient secondary to confusion. No significant medical history. Patient found by at home around 5 PM yesterday looked confused. Patient had trouble speaking and difficulty moving the left side of her body. Right-sided headache/neck pain. No fever, no chills. Patient denies chest pain, SOB. No witnessed seizures or obvious tongue trauma or urinary incontinence. Not sure about tick bites but patient was working in the [employer]. Patient brought to the ER for evaluation. Medical History as above Surgical History : None Family History : DM Personal/Social history : Non-smoker, no EtOH intake, [employer] homemaker Admission Exam Per Admitting Provider GENERAL: Uncomfortable, disoriented, underweight, dysarthric, no respiratory distress SKIN: Normal color, warm HEENT: [place] palpebral conjunctivae, no ptosis, dry buccal mucosa NECK : Supple, no tenderness CHEST : CTA, no tenderness HEART : RRR, no obvious murmurs ABDOMEN: no distention, nontender EXTREMITIES : No LE swelling/tenderness, no other conspicuous deformities noted NEUROLOGIC : Disoriented, no facial asymmetry, MMTS RUE/RLE 4/5, LUE 1/5, LLE 3/5, gait and stance not assessed Principal Diagnosis Stroke - like symptoms, left sided weakness, encephalopathy Poss. lyme meningitis Discharge Exam General Appearance: Thin, frail, no apparent distress Head: normocephalic, Atraumatic Eyes: normal inspection, EOMI Respiratory/Chest: Normal breath sounds, CTA, No accessory muscle use Cardiovascular: S1, S2, No murmur Abdomen/GI:Soft, Non tender, Bowel sounds present Extremities/Musculoskeletal:normal inspection, no edema Neurologic/Psych: Alert, awake, oriented x3, speech fluent, no facial asymmetry, moves extremities Skin: normal color, warm Discharge Data Allergies Allergy/AdvReac Type Severity Reaction Status Date / Time No Known Allergies Allergy Verified 04/01/23 01:23 Consultations 04/01/23 01:19 ED Decision to Admit Stat 04/01/23 05:50 Consult Neurology Routine 04/04/23 09:31 Consult Infectious Diseases Routine Ordered Studies 03/31/23 23:26 CT head/brain wo con Stat 03/31/23 23:35 CT angio head w con Stat CT angio neck with con Stat 04/01/23 03:42 MRI Brain [MR brain wo/w con] Stat 04/01/23 04:39 CT head/brain wo con Stat 04/02/23 10:20 MRI Brain [MR brain wo con] Urgent 04/03/23 07:12 IR lumbar puncture diagnostic Routine Hospital Course (1) Left-sided weakness: Stroke Like Symptoms Acute metabolic Encephalopathy DD: Meningitis/Encephalitis, Less likely seizure, CVA --Initial MRI Brain on 04/01/23:There is an acute punctate infarct within the right parietal lobe. Mild atrophy and microvascular ischemic changes. --Head CTA:Negative CT angiogram of the head. --Neck CTA:Negative CTA neck. --ECHO: Left ventricle systolic function is normal. EF 60 to 65%. Mild concentric LVH. Aortic valve sclerosis mild, without significant aortic valvular stenosis. Mild tricuspid regurgitation. Prominent eustachian valve is noted. Chiari network is noted. Injection of contrast documented no interatrial shunt. --Repeat MRI on 04/02/23:No acute intracranial abnormality is identified. Specifically, there is no MRI evidence of acute or subacute infarct. The tiny focus of restricted diffusion questioned in the right parietal lobe on yesterday's examination may have been artifactual. This was not corroborated on today's examination. -- Total cholesterol 202, LDL 107. --Ammonia 14 --No significant hypercarbia on VBG --Peripheral smear not suggestive of anaplasmosis, Babesia --Anaplasma, Babesia DNA pending --IgM, IgG for Lyme's negative - except for one IgM band which is positive --S/P lumbar puncture on 04/03/2023: WBC 37, glucose 84, total protein 47.7. CSF negative for CMV, enterovirus, E. coli, H. influenzae, HSV, HSV, Listeria, Neisseria, staph, varicella-zoster Other CSF studies, cultures pending --EEG showed some very mild abnormality (dysrhythmia) during wakefulness. Drowsiness produces no further activation. No focal abnormalities or potentially epileptogenic discharges were seen. Consistent with encephalopathy HbA1c 5.8 Continue aspirin, Lipitor for now Appreciate Neurology input - 04/06/23 - Clinically she is improving in her limb strength is quite good today. She still has some slight confusion but is improved compared to earlier this week.Patient has an elevated white count which probably is due to the dexamethasone. She is afebrile.Confusion could be from steroids and certain antibiotics. Awaiting ID recs. Continue Neuro Checks Continue Rocephin, vancomycin, ampicillin, Acyclovir and dexamethasone -> discussed w/ ID (04/06/23) - will stop vanco and acyclovir Confusion on and off PT OT as able Leukocytosis secondary to steroids likely > now improved WBC down to 12K (04/07/23) Consulted infectious disease for further recommendations - recommend ok to stop vanco and valacyclovir - recommend to repeat LP w/ opening pressure - pt declines another LP For completeness also recommend to order HIV, syphilis, histoplasma, Bartonella, Q fever, diverticulosis, West Nile virus, and Brucella. All cultures/studies will need to be followed to completion. all studies were ordered 04/07 patient is clinically much improved, she is alert oriented and ambulatory. Denies any headache. Discussed with neurology, and they feel there is no need for repeat LP. 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 As patient is ambulatory, will remove Crabtree catheter. 04/08 patient continues to be clinically improved and very close to her baseline. Patient and family would like patient to be discharged. Discussed with infectious disease, Dr. Veliz today, and recommend to discharge on doxycycline 7 days for possible Lyme meningitis. Discussed with the family that we do not have clear answer on the cause of her clinical status. If she was to deteriorate at home, she should return back to hospital, pt and family in agreement with that. Paroxysmal atrial tachycardia Normal TSH Started on metoprolol Replace electrolytes as needed Monitor Hyponatremia -resolved Hypochloremia Likely due to poor oral intake Received IV fluids ? Uncontrolled hypertension PACs Started on metoprolol 25 mg BID IV labetalol PRN while inpt Monitor BP - well controlled now Adjust antihypertensives as needed Prediabetes HbA1c 5.8 Total Time Total Time Spent Total Time Spent (In Minutes): 40 Discharge Plan Discharge Items Patient Disposition: Home - Self-Care Reason For Visit: CVA,PRIVATE RM FAMILY REQ IF AVAILABLE Discharge Diagnosis: Stroke - like symptoms, encephalopathy Poss. lyme meningitis Activity: Per Instructions section Non-emergency contact: Primary Care Provider Call non-emergency contact if: you have any medication questions and your symptoms worsen Follow-up/Referrals: PCP,NO [Primary Care Provider] - Diet: Regular Addtl Attending Provider Instructions: Follow-up with primary care physician within 1 to 2 weeks and follow-up on all the results of your blood work. Finish antibiotic treatment with doxycycline, as prescribed. You were started on metoprolol, take it as prescribed. Discuss further with your primary care physician if this needs to be adjusted. Pending Studies at Discharge: Yes Studies:: serologies, csf results Stand-Alone Forms: My [facility] [employer], Smoking Cessation Medications and DC Order Prescriptions: New metoprolol tartrate 25 mg Tablet 25 mg PO BID Qty: 60 0RF Advanced Probiotic 625 mg (10 billion cell) Capsule 2 cap PO DAILY Qty: 14 0RF doxycycline hyclate 100 mg capsule 100 mg PO BID 7 Days Qty: 14 0RF Discharge Orders: Discharge Order (Routine); Ordered 04/08/23 Ordered By: Roger Meade Admission Data Admit Date/Time: 04/01/23 03:38 Attending Provider: Roger Meade Admit Provider: Wilbur Monteiro Primary Care Provider: PCP,NO Other Providers: Wilbur Monteiro ; Otis Boyd ; Cem Stewart ; Flaco Veliz ; Mynor Campos I. ; Paco Valente II ; Monet Boo ; Andrei Barger ; Shine Peña ; Joel Nazario ; Hill Pitt Other Interventions: Discharge Summary Assessment (RN) Last Done: 04/08/23 15:20
[2023-04-09 18:31] LABS: CSF, LDH 20 U/L (<=25); Lyme DNA PCR CSF or Synovial Not Detected (Not Detected); Lyme DNA Source CSF; VDRL Qualitative CSF Nonreactive (Nonreactive)
== END 2023-04-08 16:10 | disposition home or self-care (01) | DRG 867 ==
LOC: ED 22:57 → SUATTDRO 04-01 03:38 → 2E 04-01 03:38

== ENCOUNTER 2023-12-30 12:21 | Inpatient (IN) ==
[2023-12-30 12:58] LABS: Basophils # (auto) 0.02 K/uL (0.00-0.20); Basophils % (auto) 0.2 %; Hematocrit (blood only) 42.2 % (37.0-47.0); Hemoglobin 14.6 g/dl (12.0-16.0); Immature Granulocytes # (auto) 0.01 K/uL (0.01-0.20); Immature Granulocytes % (auto) 0.1 %; Lymphocytes # (auto) 0.58 K/uL (1.20-3.40); Lymphocytes % (auto) 6.5 %; Mean Corpuscular Hemoglobin 31.1 pg (25.0-34.0); Mean Corpuscular Hgb Conc 34.6 g/dL (32.0-36.0); Mean Platelet Volume 9.8 fL (9.4-12.4); Monocytes # (auto) 0.49 K/uL (0.11-0.59); Monocytes % (auto) 5.5 %; Neutrophils # (auto) 7.82 K/uL (1.40-6.50); Neutrophils % (auto) 87.7 %; Platelet Count 182 K/uL (130-400); RDW Coefficient of Variation 12.3 % (11.5-14.5); RDW Standard Deviation 40.3 fL (36.4-46.3); Red Blood Count 4.69 M/uL (4.20-5.40); White Blood Count 8.92 K/ul (4.8-10.8)
[2023-12-30 13:04] LABS: iSTAT Creatinine 0.7 mg/dl (0.6-1.3); iSTAT Hemoglobin 14.3 g/dl (12.0-16.0); iSTAT Ionized Calcium 1.15 mmol/l (1.12-1.32); iSTAT Potassium 3.5 mmol/L (3.3-5.0)
[2023-12-30 13:19] LABS: Base Excess VBG 4.7 mEq/L; HCO3 VBG 29 mmol/L; Oxygen Saturation VBG 87.3 %; PCO2 VBG 42 mmHg (38-50); PO2 VBG 55 mmHg; pH VBG 7.45 (7.36-7.41)
--- NOTE | 2023-12-30 13:19 | XRay Report ---
XR chest 1V portable HISTORY: Sepsis COMPARISON: Chest 03/31/2023. FINDINGS: No pneumothorax. No pleural effusions. Emphysema again noted. The heart is top normal in si ze. No focal lung consolidations to suggest a pneumonia. No evidence for pulmonary edema. There are o ld, healed left-sided rib fractures again noted. IMPRESSION: No significant change compared to the prior study. No acute process. ACT 112: Negative or not required by law. Electronically signed by: Ray Rosado M.D. 12/30/2023 1:18 PM
[2023-12-30 13:20] LABS: Alanine Aminotransferase 17 U/L (7-52); Albumin Level 4.5 gm/dl (3.4-5.0); Alkaline Phosphatase 55 U/L (34-104); Anion Gap 11 (3-11); Aspartate Aminotransferase 28 U/L (13-39); BUN Creatinine Ratio 16.7 (10-20); Bilirubin Direct 0.1 mg/dl (0-0.2); Bilirubin,Total 0.5 mg/dl (0.2-1.0); Blood Urea Nitrogen 12 mg/dl (6-23); Calcium 9.6 mg/dl (8.6-10.3); Carbon Dioxide 27 mmol/L (21-32); Chloride 97 mmol/L (98-107); Est GFR (African American) 98.3 ml/min; Est GFR (Non-African American) 84.9 ml/min; Glucose 134 mg/dl (70-99(Fasting)); Magnesium 1.8 mg/dl (1.7-2.4); Potassium 3.4 mmol/L (3.5-5.1); Sodium 135 mmol/L (136-145); Total Protein 7.7 gm/dl (6.0-8.3)
[2023-12-30 13:26] LABS: Partial Thromboplastin Time 27 Seconds (21-31); Prothrombin Time 10.7 Seconds (9.0-12.0); Troponin I High Sensitivity 5.5 pg/ml (0-14)
[2023-12-30] MEDS: OPTIRAY 320 100ml IV ONE (13:50)
[2023-12-30 13:53] LABS: Adenovirus PCR Not Detected (NotDetected); Bordetella parapertussis PCR Not Detected (NotDetected); Bordetella pertussis PCR Not Detected (NotDetected); Chlamydia pneumoniae PCR Not Detected (NotDetected); Coronavirus 229E PCR Not Detected (NotDetected); Coronavirus CoV-2 (COVID19)PCR Not Detected (NotDetected); Coronavirus HKU1 PCR Not Detected (NotDetected); Coronavirus NL63 PCR Not Detected (NotDetected); Coronavirus OC43PCR Not Detected (NotDetected); Human Metapneumovirus PCR DETECTED (NotDetected); Influenza A PCR Not Detected (NotDetected); Influenza B PCR Not Detected (NotDetected); Mycoplasma pneumoniae PCR Not Detected (NotDetected); Parainfluenza Virus 1 PCR Not Detected (NotDetected); Parainfluenza Virus 2 PCR Not Detected (NotDetected); Parainfluenza Virus 3 PCR Not Detected (NotDetected); Parainfluenza Virus 4 PCR Not Detected (NotDetected); Respiratory Syncytial VirusPCR Not Detected (NotDetected); Rhinovirus/Enterovirus PCR Not Detected (NotDetected)
[2023-12-30 13:59] LABS: Procalcitonin 0.09 ng/ml (0-0.5)
--- NOTE | 2023-12-30 14:04 | CT Scan Report ---
HEAD CT NONCONTRAST CT DOSE: HISTORY: Headache. Nausea. Vomiting. TECHNIQUE: Multiaxial CT images of the head were performed without the use of intravenous contrast. A utomated exposure control was utilized for this study. A dose lowering technique was utilized adheri ng to the principles of ALARA. Comparison: Head CT 04/01/2023. Findings: The paranasal sinuses and mastoid air cells are clear. The calvarium and skull base are int act. There is no mass, hematoma, midline shift, acute infarct. White matter hypodensity is nonspecifi c but suggestive of microvascular ischemic change. The ventricles and sulci demonstrate mild age-rela rachel involutional changes. Impression: No acute intracranial abnormality. Atrophy and microvascular ischemic changes. ACT 112: Negative or not required by law. Electronically signed by: Ray Rosado M.D. 12/30/2023 2:03 PM
--- NOTE | 2023-12-30 14:13 | CT Scan Report ---
ABDOMEN AND PELVIS CT WITH IV CONTRAST CT DOSE: 1061.48 mGy.cm HISTORY: Nausea. Vomiting. Abdominal pain. TECHNIQUE: Multiaxial CT images of the abdomen and pelvis were performed following the use of intrave nous contrast. A dose lowering technique was utilized adhering to the principles of ALARA. COMPARISON STUDY: Abdomen and pelvis CT 03/11/2013. FINDINGS: There is a 5 mm nodule within the right lower lobe on image 48. Mild dependent changes seen within the lung bases. There is a 4 mm nodule within the left lower lobe on image 13. No pneumoperit oneum. No pneumatosis. No acute fractures identified. A few opacified left lower lobe bronchi. Mild c ircumferential thickening of the distal esophagus. A few subcentimeter hypodense lesions within the l eft hepatic lobe are technically too small to characterize but favor cysts. The main portal vein is p atent. The gallbladder, pancreas, spleen, and adrenal glands are unremarkable. There are few subcenti meter hypodense lesions within the left kidney which are also too small to characterize but favor cys ts. The right kidney enhances normally. No hydronephrosis. Mild calcified plaque within the normal ca liber abdominal aorta. No retroperitoneal or pelvic lymphadenopathy. No pelvic free fluid. Distended bladder. No bladder wall thickening. Prior hysterectomy. Colonic diverticulosis. No evidence for acut e diverticulitis. No bowel wall thickening or obstruction. Normal appendix. IMPRESSION: 1. No bowel wall thickening or obstruction. 2. Colonic diverticulosis. No evidence for acute diverticulitis. 3. Normal appendix. 4. No hydronephrosis. 5. Bilateral lower lobe subcentimeter nodules with the largest on the right measuring 5 mm. Please re barbara to the chart below for recommended follow-up. 6. Mild circumferential thickening of the distal esophagus. This suggests a mild esophagitis. 7. Distended bladder. Please refer to below summary of Fleischner criteria recommendations for follow-up of incidental CT n odules (Flor Young, Guidelines for management of small pulmonary nodules detected on CT scans: A sta tement from the Fleischner Society, Radiology 237: [id number].) SOLID NODULES Solitary nodule size: <6 mm * Low risk patients: no follow-up needed * high risk patients: optional CT at 12 months Solitary nodule size: 6-8 mm * Low risk patients: follow-up at 6-12 months, then consider further follow-up at 18-24 months * high risk patients: initial follow-up CT at 6-12 months and then at 18-24 months if no change Solitary nodule size: >8 mm * either low or high risk patients - consider follow-up CT at 3 months, and/or CT-PET, and/or biopsy Multiple nodules size: <6 mm * Low risk patients: no routine follow-up * high risk patients: optional CT at 12 months Multiple nodules size: 6-8 mm * Low risk patients: follow-up at 3-6 months, then consider further follow-up at 18-24 months * high risk patients: follow-up at 3-6 months, then at 18-24 months if no change Multiple nodules size: >8 mm * Low risk patients: follow-up at 3-6 months, then consider further follow-up at 18-24 months * high risk patients: follow-up at 3-6 months, then at 18-24 months if no change Note: newly detected indeterminate nodule in persons 35 years of age or older. * Low risk patients: minimal or absent history of smoking and/or other known risk factors * high risk patients: history of smoking or of other known risk factors (e.g. first degree relative with lung cancer, or exposure to asbestos, radon, uranium) * if a nodule up to 8 mm is partly solid or is ground glass further follow-up is required after 24 m onths to exclude possible slow growing adenocarcinoma (EMANUEL) SUBSOLID NODULES Solitary pure ground-glass nodule * nodule size <6 mm - no CT follow-up required * nodule size >=6 mm - follow-up CT at 6-12 months, then every 2 years until 5 years Solitary part-solid nodule * nodule size <6 mm - no CT follow-up required * nodule size >=6 mm - follow-up CT at 3-6 months. If unchanged, and solid component remains <6 mm, then annual follow-up for 5 years Multiple subsolid nodules * nodule size <6 mm - follow-up CT at 3-6 months, consider further follow-up at 2 and 4 years if sta ble * nodule size >=6 mm - follow-up CT at 3-6 months, subsequent management based on the most suspiciou s nodule(s) ACT 112: Positive. There are findings on this exam that require communication between the performing entity and the patient following Patient Test Result Information Act ([place] Act 112) guidelines. Electronically signed by: Ray Rosado M.D. 12/30/2023 2:10 PM
[2023-12-30 14:16] LABS: RBC Morphology Unremarkable
--- NOTE | 2023-12-30 14:38 | Emergency Department Note ---
History of Present Illness General Chief complaint: Flu Like Symptoms Stated complaint: HEADACHE, FLU LIKE SX Time Seen by Provider: 12/30/23 12:35 Source: patient and family ( at bedside) History of Present Illness Provider complaint: Headache abdominal pain nausea cough Onset (ago): day(s) 3 68-year-old female presents emergency department for headache abdominal pain nausea and cough. Family reports the patient symptoms began 3 days ago. No recent traumas or falls. No fevers. No hemoptysis. Productive cough. No exogenous hormone usage. Home Medications Medication Instructions Recorded Confirmed Type L.acidop,casei,lactis,rham-B.lact,randy 2 cap PO DAILY #14 caps 04/08/23 Rx 625 mg (10 billion cell) capsule (Advanced Probiotic) metoprolol tartrate 25 mg tablet 25 mg PO BID #60 tabs 04/08/23 Rx Allergies Allergy/AdvReac Type Severity Reaction Status Date / Time No Known Allergies Allergy Verified 04/01/23 01:23 Past Med/Surg History Medical History (Updated 12/30/23 @ 14:45 by Emory Cornejo MD) Migraines (03/11/13) No pertinent family history Meningoencephalitis Migraine Surgical History (Updated 12/30/23 @ 14:35 by Emory Cornejo MD) No pertinent past surgical history Social History Smoking Status: Never smoker Hx Alcohol Use: No Hx Substance Use: No Preferred Language: Panamanian Communication Ability: Impaired Precision Dyer Required: No Current Living Situation: Spouse Feels Safe at Home: Yes Assistive Devices: None Physical Exam Vital Signs Vital Signs - 24 hr 12/30/23 12:27 12/30/23 12:44 12/30/23 12:45 Temperature 37.1 C Temperature Source Oral Pulse Rate 91 H 99 H 101 H Pulse Rate from SpO2 Sensor 96 H Pulse Rhythm Regular Respiratory Rate 16 22 Respiratory Effort / Characteristics Non-Labored Spontaneous Respiratory Depth Normal Respiratory Pattern Regular Blood Pressure 168/101 H Blood Pressure Mean 123 Pulse Oximetry 88 L 95 Oxygen Delivery Method Room Air Sepsis Recent Fever Within 48 Hours No Sepsis New/Unexplained Change in Mental Status No Sepsis Action Taken by Nursing No Action Required 12/30/23 13:00 Temperature Temperature Source Pulse Rate 108 H Pulse Rate from SpO2 Sensor 103 H Pulse Rhythm Respiratory Rate 23 Respiratory Effort / Characteristics Respiratory Depth Respiratory Pattern Blood Pressure 181/110 H Blood Pressure Mean 133 Pulse Oximetry 97 Oxygen Delivery Method Sepsis Recent Fever Within 48 Hours Sepsis New/Unexplained Change in Mental Status Sepsis Action Taken by Nursing Physical Exam HENT: Exam performed. -Head: Normocephalic and atraumatic. -Right Ear: External ear normal. No mastoid erythema -Left Ear: External ear normal. No mastoid erythema -Mouth/Throat: The oropharynx is clear and moist. No trismus in the jaw. No dental abscesses or uvula swelling. No oropharyngeal exudate or tonsillar abscesses. EYES: Conjunctivae and EOM are normal. Pupils are equal, round, and reactive to light. Right eye exhibits no discharge. Left eye exhibits no discharge. No scleral icterus. NECK: Normal range of motion. Neck supple. No JVD present. No rigidity. No tracheal deviation and normal range of motion present. CV: Normal rate, regular rhythm, normal heart sounds and intact distal pulses. There is no peripheral edema. Palpable radial pulses bue. PULM/CHEST: Rhonchi bilaterally. ABD: The abdomen is soft. There is tenderness to palpation of the left lower quadrant. There is no rebound, no guarding. NEURO: Motor and sensation grossly intact. Course Course 1235: The patient was evaluated in room B7. A complete history and physical exam was performed Cardiac monitoring: An order was placed for continuous cardiac monitoring. The monitor shows a rate of 90 with sinus rhythm interpreted by me Patient hypoxic on room air. Supplemental oxygen via nasal cannula was applied which improved the patient's oxygen saturation. 1441: Vital signs stable on supplemental oxygen. Labs show white blood cell count of 8.92. Hemoglobin 14.6. VBG shows a venous pCO2 of 42 and venous pH of 7.45. Urinalysis is negative. Procalcitonin is 0.09. Patient is positive for human metapneumovirus. Imaging within normal limits. Discussed the case with [facility] hospitalist Dr. López who will evaluate the patient for admission. Administered Medications Discontinued Medications Ioversol (Optiray 320 100ml) 94 ml IV ONCE ONE Stop: 12/30/23 13:50 Last Admin: 12/30/23 13:50 Dose: 94 ml Documented By: LUKE Critical Care Time Critical Care Time: Yes Total Critical Care Time: 44 I have personally spent greater than 44 minutes of critical care time in the direct management of this patient. This includes bedside care, interpretation of diagnostic studies, and testing, discussion with consultants, patient, and family members, and other required patient management activities. This 44 minutes is in excess of all separately billable procedures. Medical Decision Making Laboratory Data Attestation: I reviewed the patient's lab results. 12/30/23 12:35 12/30/23 12:35 Lab Results 12/30/23 12/30/23 12/30/23 Range/Units 12:35 12:36 12:51 WBC 8.92 (4.8-10.8) K/ul RBC 4.69 (4.20-5.40) M/uL Hgb 14.6 (12.0-16.0) g/dl POC Hgb 14.3 (12.0-16.0) g/dl Hct 42.2 (37.0-47.0) % POC Hct 42 (37-47) % MCV 90.0 (80.0-100.0) fL MCH 31.1 (25.0-34.0) pg MCHC 34.6 (32.0-36.0) g/dL RDW Std Deviation 40.3 (36.4-46.3) fL RDW Coeff of Alyssa 12.3 (11.5-14.5) % Plt Count 182 (130-400) K/uL MPV 9.8 (9.4-12.4) fL Immature Gran % (Auto) 0.1 % Neut % (Auto) 87.7 % Lymph % (Auto) 6.5 % Harrison % (Auto) 5.5 % Eos % (Auto) 0.0 % Baso % (Auto) 0.2 % Neut # (Auto) 7.82 H (1.40-6.50) K/uL Lymph # (Auto) 0.58 L (1.20-3.40) K/uL Harrison # (Auto) 0.49 (0.11-0.59) K/uL Eos # (Auto) 0.00 (0.00-0.50) K/uL Baso # (Auto) 0.02 (0.00-0.20) K/uL Immature Gran # (Auto) 0.01 (0.01-0.20) K/uL RBC Morphology Unremarkable PT 10.7 (9.0-12.0) Seconds INR 1.0 (0.9-1.1) APTT 27 (21-31) Seconds PTT Ratio 1.0 VBG pH (7.36-7.41) VBG pCO2 (38-50) mmHg VBG pO2 mmHg VBG HCO3 mmol/L VBG O2 Saturation % VBG Base Excess mEq/L POC Sodium 134 L (135-144) mmol/L Sodium 135 L (136-145) mmol/L POC Potassium 3.5 (3.3-5.0) mmol/L Potassium 3.4 L (3.5-5.1) mmol/L POC Chloride 95 L (101-112) mmol/L Chloride 97 L (98-107) mmol/L Carbon Dioxide 27 (21-32) mmol/L POC Total CO2 28 (24-31) mmol/L Anion Gap 11 (3-11) POC Anion Gap 16.0 (16-25) mmol/L POC BUN 11 (7-18) mg/dl BUN 12 (6-23) mg/dl Creatinine 0.72 (0.6-1.2) mg/dl POC Creatinine 0.7 (0.6-1.3) mg/dl Est Cr Clr Drug Dosing Not Reportable Est GFR ( Amer) 98.3 ml/min Est GFR (Non-Af Amer) 84.9 ml/min BUN/Creatinine Ratio 16.7 (10-20) Glucose 134 H (70-99(Fasting)) mg/dl POC Glucose (other) 136 H (70-99) mg/dl Lactate 0.9 (0.4-2.0) mmol/L Calcium 9.6 (8.6-10.3) mg/dl POC Ioniz Calcium Rio 1.15 (1.12-1.32) mmol/l Magnesium 1.8 (1.7-2.4) mg/dl Total Bilirubin 0.5 (0.2-1.0) mg/dl Direct Bilirubin 0.1 (0-0.2) mg/dl AST 28 (13-39) U/L ALT 17 (7-52) U/L Alkaline Phosphatase 55 (34-104) U/L Troponin I High Sens 5.5 (0-14) pg/ml Total Protein 7.7 (6.0-8.3) gm/dl Albumin 4.5 (3.4-5.0) gm/dl Procalcitonin 0.09 (0-0.5) ng/ml Adenovirus (PCR) Not Detected (NotDetected) Anaplasma Smear See Comment Babesia Smear See Comment B. pertussis DNA (PCR) Not Detected (NotDetected) B.parapertussis DNA PCR Not Detected (NotDetected) Lyme Disease Screen Cancelled C. pneumoniae DNA (PCR) Not Detected (NotDetected) Coronavirus OC43 (PCR) Not Detected (NotDetected) Coronavirus HKU1 (PCR) Not Detected (NotDetected) Coronavirus 229E (PCR) Not Detected (NotDetected) SARS-CoV-2 (PCR) Not Detected (NotDetected) Coronavirus NL63 (PCR) Not Detected (NotDetected) Human Metapneumovir PCR DETECTED A (NotDetected) Influenza Type A (PCR) Not Detected (NotDetected) Influenza Type B (PCR) Not Detected (NotDetected) M. pneumoniae (PCR) Not Detected (NotDetected) Parainfluenza 1 (PCR) Not Detected (NotDetected) Parainfluenza 2 (PCR) Not Detected (NotDetected) Parainfluenza 3 (PCR) Not Detected (NotDetected) Parainfluenza 4 (PCR) Not Detected (NotDetected) RSV (PCR) Not Detected (NotDetected) Entero/Rhino (PCR) Not Detected (NotDetected) 12/30/23 Range/Units 13:12 WBC (4.8-10.8) K/ul RBC (4.20-5.40) M/uL Hgb (12.0-16.0) g/dl POC Hgb (12.0-16.0) g/dl Hct (37.0-47.0) % POC Hct (37-47) % MCV (80.0-100.0) fL MCH (25.0-34.0) pg MCHC (32.0-36.0) g/dL RDW Std Deviation (36.4-46.3) fL RDW Coeff of Alyssa (11.5-14.5) % Plt Count (130-400) K/uL MPV (9.4-12.4) fL Immature Gran % (Auto) % Neut % (Auto) % Lymph % (Auto) % Harrison % (Auto) % Eos % (Auto) % Baso % (Auto) % Neut # (Auto) (1.40-6.50) K/uL Lymph # (Auto) (1.20-3.40) K/uL Harrison # (Auto) (0.11-0.59) K/uL Eos # (Auto) (0.00-0.50) K/uL Baso # (Auto) (0.00-0.20) K/uL Immature Gran # (Auto) (0.01-0.20) K/uL RBC Morphology PT (9.0-12.0) Seconds INR (0.9-1.1) APTT (21-31) Seconds PTT Ratio VBG pH 7.45 H (7.36-7.41) VBG pCO2 42 (38-50) mmHg VBG pO2 55 mmHg VBG HCO3 29 mmol/L VBG O2 Saturation 87.3 % VBG Base Excess 4.7 mEq/L POC Sodium (135-144) mmol/L Sodium (136-145) mmol/L POC Potassium (3.3-5.0) mmol/L Potassium (3.5-5.1) mmol/L POC Chloride (101-112) mmol/L Chloride (98-107) mmol/L Carbon Dioxide (21-32) mmol/L POC Total CO2 (24-31) mmol/L Anion Gap (3-11) POC Anion Gap (16-25) mmol/L POC BUN (7-18) mg/dl BUN (6-23) mg/dl Creatinine (0.6-1.2) mg/dl POC Creatinine (0.6-1.3) mg/dl Est Cr Clr Drug Dosing Est GFR ( Amer) ml/min Est GFR (Non-Af Amer) ml/min BUN/Creatinine Ratio (10-20) Glucose (70-99(Fasting)) mg/dl POC Glucose (other) (70-99) mg/dl Lactate (0.4-2.0) mmol/L Calcium (8.6-10.3) mg/dl POC Ioniz Calcium Rio (1.12-1.32) mmol/l Magnesium (1.7-2.4) mg/dl Total Bilirubin (0.2-1.0) mg/dl Direct Bilirubin (0-0.2) mg/dl AST (13-39) U/L ALT (7-52) U/L Alkaline Phosphatase (34-104) U/L Troponin I High Sens (0-14) pg/ml Total Protein (6.0-8.3) gm/dl Albumin (3.4-5.0) gm/dl Procalcitonin (0-0.5) ng/ml Adenovirus (PCR) (NotDetected) Anaplasma Smear Babesia Smear B. pertussis DNA (PCR) (NotDetected) B.parapertussis DNA PCR (NotDetected) Lyme Disease Screen C. pneumoniae DNA (PCR) (NotDetected) Coronavirus OC43 (PCR) (NotDetected) Coronavirus HKU1 (PCR) (NotDetected) Coronavirus 229E (PCR) (NotDetected) SARS-CoV-2 (PCR) (NotDetected) Coronavirus NL63 (PCR) (NotDetected) Human Metapneumovir PCR (NotDetected) Influenza Type A (PCR) (NotDetected) Influenza Type B (PCR) (NotDetected) M. pneumoniae (PCR) (NotDetected) Parainfluenza 1 (PCR) (NotDetected) Parainfluenza 2 (PCR) (NotDetected) Parainfluenza 3 (PCR) (NotDetected) Parainfluenza 4 (PCR) (NotDetected) RSV (PCR) (NotDetected) Entero/Rhino (PCR) (NotDetected) Imaging Data Attestation: I personally reviewed and interpreted this imaging study as follows: My Impression: Chest x-ray: No significant change from the chest x-ray on March 31, 2023 Radiologist's Impression: Chest X-Ray 12/30/23 12:40 XR chest 1V portable HISTORY: Sepsis COMPARISON: Chest 03/31/2023. FINDINGS: No pneumothorax. No pleural effusions. Emphysema again noted. The heart is top normal in size. No focal lung consolidations to suggest a pneumonia. No evidence for pulmonary edema. There are old, healed left-sided rib fractures again noted. IMPRESSION: No significant change compared to the prior study. No acute process. ACT 112: Negative or not required by law. Electronically signed by: Ray Rosado M.D. 12/30/2023 1:18 PM Abdomen/Pelvis CT 12/30/23 13:[address] WITH IV CONTRAST CT DOSE: 1061.48 mGy.cm HISTORY: Nausea. Vomiting. Abdominal pain. TECHNIQUE: Multiaxial CT images of the abdomen and pelvis were performed following the use of intravenous contrast. A dose lowering technique was utilized adhering to the principles of ALARA. COMPARISON STUDY: Abdomen and pelvis CT 03/11/2013. FINDINGS: There is a 5 mm nodule within the right lower lobe on image 48. Mild dependent changes seen within the lung bases. There is a 4 mm nodule within the left lower lobe on image 13. No pneumoperitoneum. No pneumatosis. No acute fractures identified. A few opacified left lower lobe bronchi. Mild circumferential thickening of the distal esophagus. A few subcentimeter hypodense lesions within the left hepatic lobe are technically too small to characterize but favor cysts. The main portal vein is patent. The gallbladder, pancreas, spleen, and adrenal glands are unremarkable. There are few subcentimeter hypodense lesions within the left kidney which are also too small to characterize but favor cysts. The right kidney enhances normally. No hydronephrosis. Mild calcified plaque within the normal caliber abdominal aorta. No retroperitoneal or pelvic lymphadenopathy. No pelvic free fluid. Distended bladder. No bladder wall thickening. Prior hysterectomy. Colonic diverticulosis. No evidence for acute diverticulitis. No bowel wall thickening or obstruction. Normal appendix. IMPRESSION: 1. No bowel wall thickening or obstruction. 2. Colonic diverticulosis. No evidence for acute diverticulitis. 3. Normal appendix. 4. No hydronephrosis. 5. Bilateral lower lobe subcentimeter nodules with the largest on the right measuring 5 mm. Please refer to the chart below for recommended follow-up. 6. Mild circumferential thickening of the distal esophagus. This suggests a mild esophagitis. 7. Distended bladder. Please refer to below summary of Fleischner criteria recommendations for follow- up of incidental CT nodules (Flor Young, Guidelines for management of small pulmonary nodules detected on CT scans: A statement from the Fleischner Society, Radiology 237: [phone].) SOLID NODULES Solitary nodule size: <6 mm * Low risk patients: no follow-up needed * high risk patients: optional CT at 12 months Solitary nodule size: 6-8 mm * Low risk patients: follow-up at 6-12 months, then consider further follow-up at 18-24 months * high risk patients: initial follow-up CT at 6-12 months and then at 18-24 months if no change Solitary nodule size: >8 mm * either low or high risk patients - consider follow-up CT at 3 months, and/or CT-PET, and/or biopsy Multiple nodules size: <6 mm * Low risk patients: no routine follow-up * high risk patients: optional CT at 12 months Multiple nodules size: 6-8 mm * Low risk patients: follow-up at 3-6 months, then consider further follow-up at 18-24 months * high risk patients: follow-up at 3-6 months, then at 18-24 months if no change Multiple nodules size: >8 mm * Low risk patients: follow-up at 3-6 months, then consider further follow-up at 18-24 months * high risk patients: follow-up at 3-6 months, then at 18-24 months if no change Note: newly detected indeterminate nodule in persons 35 years of age or older. * Low risk patients: minimal or absent history of smoking and/or other known risk factors * high risk patients: history of smoking or of other known risk factors (e.g. first degree relative with lung cancer, or exposure to asbestos, radon, uranium) * if a nodule up to 8 mm is partly solid or is ground glass further follow-up is required after 24 months to exclude possible slow growing adenocarcinoma (EMANUEL) SUBSOLID NODULES Solitary pure ground-glass nodule * nodule size <6 mm - no CT follow-up required * nodule size >=6 mm - follow-up CT at 6-12 months, then every 2 years until 5 years Solitary part-solid nodule * nodule size <6 mm - no CT follow-up required * nodule size >=6 mm - follow-up CT at 3-6 months. If unchanged, and solid component remains <6 mm, then annual follow-up for 5 years Multiple subsolid nodules * nodule size <6 mm - follow-up CT at 3-6 months, consider further follow-up at 2 and 4 years if stable * nodule size >=6 mm - follow-up CT at 3-6 months, subsequent management based on the most suspicious nodule(s) ACT 112: Positive. There are findings on this exam that require communication between the performing entity and the patient following Patient Test Result Information Act ([place] Act 112) guidelines. Electronically signed by: Ray Rosado M.D. 12/30/2023 2:[address] 12/30/23 13:[address] DOSE: HISTORY: Headache. Nausea. Vomiting. TECHNIQUE: Multiaxial CT images of the head were performed without the use of intravenous contrast. Automated exposure control was utilized for this study. A dose lowering technique was utilized adhering to the principles of ALARA. Comparison: Head CT 04/01/2023. Findings: The paranasal sinuses and mastoid air cells are clear. The calvarium and skull base are intact. There is no mass, hematoma, midline shift, acute infarct. White matter hypodensity is nonspecific but suggestive of microvascular ischemic change. The ventricles and sulci demonstrate mild age-related involutional changes. Impression: No acute intracranial abnormality. Atrophy and microvascular ischemic changes. ACT 112: Negative or not required by law. Electronically signed by: Ray Rosado M.D. 12/30/2023 2:03 PM ECG Data Attestation: I personally reviewed and interpreted this ECG as follows: Rate (beats per minute): 102 Rhythm: + sinus tachycardia ECG Intervals/blocks: + Normal QRS, + Normal UT and + Normal QT-c ECG ST segments: + Normal ST segments MDM Narrative 1235: The patient was evaluated in room B7. A complete history and physical exam was performed Cardiac monitoring: An order was placed for continuous cardiac monitoring. The monitor shows a rate of 90 with sinus rhythm interpreted by me Patient hypoxic on room air. Supplemental oxygen via nasal cannula was applied which improved the patient's oxygen saturation. 1441: Vital signs stable on supplemental oxygen. Labs show white blood cell count of 8.92. Hemoglobin 14.6. VBG shows a venous pCO2 of 42 and venous pH of 7.45. Urinalysis is negative. Procalcitonin is 0.09. Patient is positive for human metapneumovirus. Imaging within normal limits. Discussed the case with [facility] hospitalist Dr. López who will evaluate the patient for admission. Impression & Plan Hypoxia, Infection due to human metapneumovirus (hMPV) Discharge Plan Visit Data Chief Complaint: Flu Like Symptoms Stated Complaint: HEADACHE, FLU LIKE SX ED Provider: Emory Cornejo Discharge Problem: Hypoxia, Infection due to human metapneumovirus (hMPV) Patient Disposition: Being Evaluated by Hospitalist Forms Stand Alone Forms: My [facility] Prescriptions Prescriptions: No Action metoprolol tartrate 25 mg Tablet 25 mg PO BID Qty: 60 0RF Advanced Probiotic 625 mg (10 billion cell) Capsule 2 cap PO DAILY Qty: 14 0RF Referrals Referrals: PCP,NO [Primary Care Provider] -
[2023-12-30 14:40] LABS: Appearance Urine Clear (Clear); Bacteria Urine Automated Negative (Negative); Bilirubin Urine Negative (Negative); Blood Urine Negative (Negative); Color Urine Yellow; Epithelial Cell Urine Auto 20-30 /lpf (0-5); Glucose Urine UA Negative (Negative); Ketones Urine 2+ (Negative); Leukocyte Esterase Urine Negative (Negative); Nitrite Urine Negative (Negative); Protein Urine 1+ (Negative); Specific Gravity Urine 1.018 (1.000-1.030); Urobilinogen Urine Negative (Negative)
[2023-12-30] MEDS: ONDANSETRON INJ 2 MG/ML 2 ML VIAL IV STA (14:42)
[2023-12-30] MEDS: KETOROLAC TROMETHAMINE 15 MG/ML VIAL IV STA (14:43)
[2023-12-30 14:44] LABS: Lyme Screen Rflx Confirmation Negative (Negative)
[2023-12-30] MEDS: SODIUM CHLORIDE 0.9% 1,000 ML IV ONE (14:44)
--- NOTE | 2023-12-30 14:44 | History & Physical Report ---
Date of Service December 30, 2023 Assessment & Plan (1) Acute respiratory failure with hypoxia: (2) Infection due to human metapneumovirus (hMPV): Plan: Pt presents with weakness, and cold-like symptoms Reports being at the social gathering (wedding) where multiple ppl had "cold" and her symptoms started shortly after that reports some cough, congestion, abd. discomfort, however weakness is her main complaint In the ED found mildly hypoxic, CXR and chest CT obtained - no pna, no PE, + pulm. nodule CT abd also obtained - shows bladder distention and we confirmed urinary retention in the ED, abd. discomfort much improved after straight cath. UA - negative Found positive for +human metapneumovirus blood cultx pending infectious panel/ tick borne panel ordered in the ED and pending, so far negative no fever, no WBC elevation, procal negative will provide supportive care for viral infection IVF, guaifenesin, incentive elder, flutter valve currently on 1l of suppl. O2, will try to wean off History of Present Illness Chief Complaint: flu like symptoms, hypoxia Primary Care Provider: NO PCP 68 yo Elio F with no significant med. hx, lastly hospitalized here in April 2023 - at that time presented with altered mental status, L-sided weakness, stroke was ruled out, and she was treated for poss. Lyme meningitis. Today she presents with her due to flu like symptoms and weakness, abd. discomfort and found to be mildly hypoxic in the ED. Work-up in ED so far only shows being positive for human metapneumovirus. In Ed she was on 3L of oxygen. CT abdomen pelvis was obtained and showed distended bladder - i communicated w/ pt's RN in ED - she had pt void 500cc of urine, then bladder scanned her and straight cathed her for 650 cc of urine. UA negative for UTI. CT chest also obtained as she was being hypoxic. In the ED, no elev. WBC, no fever, procal negative. Blood cultx pending. She received NS, toradol, zofran, was placed on oxygen and felt better - even to the point when her was asking to get released from ED. History is mostly obtained from the , pt is awake and alert but appears quite weak. They say that they were at the wedding on Monday and she felt well at that time. However, she was cold and multiple people were sick w/ cold. On Monday she started to develop some cold like symptoms, but not severe - reports headache, congestion, mild cough. This AM she became very weak and that's why they presented in the hospital. She says after straight cath she is having no abdominal discomfort and asking for food. RN in the ED says that when pt was trying to eat earlier she vomited. Currently pt is down from 3L to 1L of suppl. O2. Discussed with the pt and that given that pt is still on oxygen, feeling weak and not sure if able to even eat, will keep her in the hospital for close monitoring and will re-eval tomorrow. They are in agreement. Allergies Allergy/AdvReac Type Severity Reaction Status Date / Time No Known Allergies Allergy Verified 12/30/23 15:36 Home Medications Medication Instructions Recorded Confirmed Type acetaminophen 325 mg tablet 325 mg PO QID PRN Pain 12/30/23 12/30/23 History (Tylenol) calcium carbonate 600 mg-vitamin 1 tab PO DAILY 12/30/23 12/30/23 History D3 20 mcg (800 unit) chewable tablet (Caltrate 600 plus D) fish oil-vit E-fat acids 2 cap PO DAILY 12/30/23 12/30/23 History comb.5-herbal comb. 137 400 mg-5 unit capsule Past Med/Surg History Medical History (Updated 12/30/23 @ 19:37 by Roger Meade MD) Migraines (03/11/13) No pertinent family history Meningoencephalitis Migraine Surgical History (Updated 12/30/23 @ 14:35 by Emory Cornejo MD) No pertinent past surgical history Social History Smoking Status: Never smoker Second Hand Exposure: No; Do You Dip or Chew Tobacco: No; Tobacco Cessation Education Requested by Patient: No Hx Alcohol Use: No Hx Substance Use: No Preferred Language: Occitan Communication Ability: Effective [employer] Chief Required: No Beliefs That Will Affect Care: None Current Living Situation: Family Other Information That Helps Us Care for You: No Feels Safe at Home: Yes Safety Concerns: Feels Safe At This Time Assistive Devices: None Review of Systems Review of Systems: All systems reviewed & are unremarkable except as noted in Subjective Physical Exam Constitutional: WD/WN, vitals as above (on suppl. O2) Eyes: PERRL, conjunctivae normal, anicteric sclerae ENMT: external ear and nose normal, oropharynx normal Neck: trachea midline, no thyromegaly Respiratory: normal respiratory effort (minimal rhonchi, no wheezes) and + cough; no respiratory distress Cardiovascular: RRR, no murmur, no edema Chest (Breasts): Chest: normal inspection of chest Gastrointestinal (Abdomen): normal bowel sounds, soft, nontender, no hepatosplenomegaly Musculoskeletal: no cyanosis or clubbing, extremities motor strength 5/5 Skin: no rashes, warm and dry Neurologic: PERRL, EOMI, accommodation nl, no face palsy, no dysarthria Psychiatric: A+Ox3, euthymic affect Results & Data Results & Data Vital Signs (Past 12 Hours) Vital Signs Temp Pulse Resp BP Pulse Ox O2 Del Method 12/30/23 13:00 108 H 23 181/110 H 97 12/30/23 12:45 101 H 12/30/23 12:44 99 H 22 95 12/30/23 12:27 37.1 C 91 H 16 168/101 H 88 L Room Air Laboratory Results 12/30/23 12/30/23 12/30/23 Range/Units Unknown 13:12 12:51 WBC (4.8-10.8) K/ul RBC (4.20-5.40) M/uL Hgb (12.0-16.0) g/dl POC Hgb 14.3 (12.0-16.0) g/dl Hct (37.0-47.0) % POC Hct 42 (37-47) % MCV (80.0-100.0) fL MCH (25.0-34.0) pg MCHC (32.0-36.0) g/dL RDW Std Deviation (36.4-46.3) fL RDW Coeff of Alyssa (11.5-14.5) % Plt Count (130-400) K/uL MPV (9.4-12.4) fL Immature Gran % (Auto) % Neut % (Auto) % Lymph % (Auto) % [place] % (Auto) % Eos % (Auto) % Baso % (Auto) % Neut # (Auto) (1.40-6.50) K/uL Lymph # (Auto) (1.20-3.40) K/uL [place] # (Auto) (0.11-0.59) K/uL Eos # (Auto) (0.00-0.50) K/uL Baso # (Auto) (0.00-0.20) K/uL Immature Gran # (Auto) (0.01-0.20) K/uL RBC Morphology PT (9.0-12.0) Seconds INR (0.9-1.1) APTT (21-31) Seconds PTT Ratio VBG pH 7.45 H (7.36-7.41) VBG pCO2 42 (38-50) mmHg VBG pO2 55 mmHg VBG HCO3 29 mmol/L VBG O2 Saturation 87.3 % VBG Base Excess 4.7 mEq/L POC Sodium 134 L (135-144) mmol/L Sodium (136-145) mmol/L POC Potassium 3.5 (3.3-5.0) mmol/L Potassium (3.5-5.1) mmol/L POC Chloride 95 L (101-112) mmol/L Chloride (98-107) mmol/L Carbon Dioxide (21-32) mmol/L POC Total CO2 28 (24-31) mmol/L Anion Gap (3-11) POC Anion Gap 16.0 (16-25) mmol/L POC BUN 11 (7-18) mg/dl BUN (6-23) mg/dl Creatinine (0.6-1.2) mg/dl POC Creatinine 0.7 (0.6-1.3) mg/dl Est Cr Clr Drug Dosing Est GFR ( Amer) ml/min Est GFR (Non-Af Amer) ml/min BUN/Creatinine Ratio (10-20) Glucose (70-99(Fasting)) mg/dl POC Glucose (other) 136 H (70-99) mg/dl Lactate (0.4-2.0) mmol/L Calcium (8.6-10.3) mg/dl POC Ioniz Calcium [place] 1.15 (1.12-1.32) mmol/l Magnesium (1.7-2.4) mg/dl Total Bilirubin (0.2-1.0) mg/dl Direct Bilirubin (0-0.2) mg/dl AST (13-39) U/L ALT (7-52) U/L Alkaline Phosphatase (34-104) U/L Troponin I High Sens (0-14) pg/ml Total Protein (6.0-8.3) gm/dl Albumin (3.4-5.0) gm/dl Procalcitonin (0-0.5) ng/ml Urine Color Pending Urine Appearance Pending Urine pH Pending Ur Specific [place] Pending Urine Protein Pending Urine Glucose (UA) Pending Urine Ketones Pending Urine Blood Pending Urine Nitrite Pending Urine Bilirubin Pending Urine Urobilinogen Pending Ur Leukocyte Esterase Pending Adenovirus (PCR) (NotDetected) Anaplasma Smear Babesia Smear Babesia microti DNA PCR B. pertussis DNA (PCR) (NotDetected) B.parapertussis DNA PCR (NotDetected) Lyme Disease Screen C. pneumoniae DNA (PCR) (NotDetected) Coronavirus OC43 (PCR) (NotDetected) Coronavirus HKU1 (PCR) (NotDetected) Coronavirus 229E (PCR) (NotDetected) SARS-CoV-2 (PCR) (NotDetected) Coronavirus NL63 (PCR) (NotDetected) Human Metapneumovir PCR (NotDetected) Influenza Type A (PCR) (NotDetected) Influenza Type B (PCR) (NotDetected) M. pneumoniae (PCR) (NotDetected) Parainfluenza 1 (PCR) (NotDetected) Parainfluenza 2 (PCR) (NotDetected) Parainfluenza 3 (PCR) (NotDetected) Parainfluenza 4 (PCR) (NotDetected) Q Fever Phase I IgG Ab Q Fever Phase I IgM Ab Q Fever Phase II IgG Ab Q Fever Phase II IgM Ab RSV (PCR) (NotDetected) Entero/Rhino (PCR) (NotDetected) Rickettsia IgG Ab Rickettsia IgM Ab Typhus Fever IgG Ab Typhus Fever IgM Ab 12/30/23 12/30/23 12/30/23 Range/Units 12:36 12:35 12:35 WBC 8.92 (4.8-10.8) K/ul RBC 4.69 (4.20-5.40) M/uL Hgb 14.6 (12.0-16.0) g/dl POC Hgb (12.0-16.0) g/dl Hct 42.2 (37.0-47.0) % POC Hct (37-47) % MCV 90.0 (80.0-100.0) fL MCH 31.1 (25.0-34.0) pg MCHC 34.6 (32.0-36.0) g/dL RDW Std Deviation 40.3 (36.4-46.3) fL RDW Coeff of Alyssa 12.3 (11.5-14.5) % Plt Count 182 (130-400) K/uL MPV 9.8 (9.4-12.4) fL Immature Gran % (Auto) 0.1 % Neut % (Auto) 87.7 % Lymph % (Auto) 6.5 % [place] % (Auto) 5.5 % Eos % (Auto) 0.0 % Baso % (Auto) 0.2 % Neut # (Auto) 7.82 H (1.40-6.50) K/uL Lymph # (Auto) 0.58 L (1.20-3.40) K/uL [place] # (Auto) 0.49 (0.11-0.59) K/uL Eos # (Auto) 0.00 (0.00-0.50) K/uL Baso # (Auto) 0.02 (0.00-0.20) K/uL Immature Gran # (Auto) 0.01 (0.01-0.20) K/uL RBC Morphology Unremarkable PT 10.7 (9.0-12.0) Seconds INR 1.0 (0.9-1.1) APTT 27 (21-31) Seconds PTT Ratio 1.0 VBG pH (7.36-7.41) VBG pCO2 (38-50) mmHg VBG pO2 mmHg VBG HCO3 mmol/L VBG O2 Saturation % VBG Base Excess mEq/L POC Sodium (135-144) mmol/L Sodium 135 L (136-145) mmol/L POC Potassium (3.3-5.0) mmol/L Potassium 3.4 L (3.5-5.1) mmol/L POC Chloride (101-112) mmol/L Chloride 97 L (98-107) mmol/L Carbon Dioxide 27 (21-32) mmol/L POC Total CO2 (24-31) mmol/L Anion Gap 11 (3-11) POC Anion Gap (16-25) mmol/L POC BUN (7-18) mg/dl BUN 12 (6-23) mg/dl Creatinine 0.72 (0.6-1.2) mg/dl POC Creatinine (0.6-1.3) mg/dl Est Cr Clr Drug Dosing Not Reportable Est GFR ( Amer) 98.3 ml/min Est GFR (Non-Af Amer) 84.9 ml/min BUN/Creatinine Ratio 16.7 (10-20) Glucose 134 H (70-99(Fasting)) mg/dl POC Glucose (other) (70-99) mg/dl Lactate 0.9 (0.4-2.0) mmol/L Calcium 9.6 (8.6-10.3) mg/dl POC Ioniz Calcium [place] (1.12-1.32) mmol/l Magnesium 1.8 (1.7-2.4) mg/dl Total Bilirubin 0.5 (0.2-1.0) mg/dl Direct Bilirubin 0.1 (0-0.2) mg/dl AST 28 (13-39) U/L ALT 17 (7-52) U/L Alkaline Phosphatase 55 (34-104) U/L Troponin I High Sens 5.5 (0-14) pg/ml Total Protein 7.7 (6.0-8.3) gm/dl Albumin 4.5 (3.4-5.0) gm/dl Procalcitonin 0.09 (0-0.5) ng/ml Urine Color Urine Appearance Urine pH Ur Specific [place] Urine Protein Urine Glucose (UA) Urine Ketones Urine Blood Urine Nitrite Urine Bilirubin Urine Urobilinogen Ur Leukocyte Esterase Adenovirus (PCR) Not Detected (NotDetected) Anaplasma Smear See Comment Babesia Smear See Comment Babesia microti DNA PCR Pending B. pertussis DNA (PCR) Not Detected (NotDetected) B.parapertussis DNA PCR Not Detected (NotDetected) Lyme Disease Screen Cancelled Pending C. pneumoniae DNA (PCR) Not Detected (NotDetected) Coronavirus OC43 (PCR) Not Detected (NotDetected) Coronavirus HKU1 (PCR) Not Detected (NotDetected) Coronavirus 229E (PCR) Not Detected (NotDetected) SARS-CoV-2 (PCR) Not Detected (NotDetected) Coronavirus NL63 (PCR) Not Detected (NotDetected) Human Metapneumovir PCR DETECTED A (NotDetected) Influenza Type A (PCR) Not Detected (NotDetected) Influenza Type B (PCR) Not Detected (NotDetected) M. pneumoniae (PCR) Not Detected (NotDetected) Parainfluenza 1 (PCR) Not Detected (NotDetected) Parainfluenza 2 (PCR) Not Detected (NotDetected) Parainfluenza 3 (PCR) Not Detected (NotDetected) Parainfluenza 4 (PCR) Not Detected (NotDetected) Q Fever Phase I IgG Ab Pending Q Fever Phase I IgM Ab Pending Q Fever Phase II IgG Ab Pending Q Fever Phase II IgM Ab Pending RSV (PCR) Not Detected (NotDetected) Entero/Rhino (PCR) Not Detected (NotDetected) Rickettsia IgG Ab Pending Rickettsia IgM Ab Pending Typhus Fever IgG Ab Pending Typhus Fever IgM Ab Pending Diagnostic Findings Head CT Impression: No acute intracranial abnormality. Atrophy and microvascular ischemic changes. CXR IMPRESSION: No significant change compared to the prior study. No acute process. CT abd. pelvis IMPRESSION: 1. No bowel wall thickening or obstruction. 2. Colonic diverticulosis. No evidence for acute diverticulitis. 3. Normal appendix. 4. No hydronephrosis. 5. Bilateral lower lobe subcentimeter nodules with the largest on the right measuring 5 mm. Please refer to the chart below for recommended follow-up. 6. Mild circumferential thickening of the distal esophagus. This suggests a mild esophagitis. 7. Distended bladder. Chest CTA IMPRESSION: 1. There is no evidence of pulmonary embolus in the main, lobar, or segmental pulmonary arteries. 2. There is no airspace consolidation or pleural effusion. 3. A 6 mm right lower lobe pulmonary nodule is pathologically indeterminant and new from 2013. Follow-up is recommended as per the Fleischner criteria. See below.
[2023-12-30] MEDS: OPTIRAY 320 125ml IV ONE (16:12)
--- NOTE | 2023-12-30 16:52 | CT Scan Report ---
CT ANGIOGRAM OF THE CHEST CLINICAL HISTORY: Sepsis. Nausea and vomiting. COMPARISON STUDY: Chest x-ray dated 12/30/2023. Chest CT dated 03/11/2013. TECHNIQUE: Following the IV administration of 119 cc of Optiray 320, CT angiogram of the chest was pe rformed from the upper abdomen to the thoracic inlet utilizing the pulmonary embolus protocol. Images are reviewed in the axial, sagittal, and coronal planes. 3-D MIPS images are created and assessed. I V contrast was administered without complication. A dose lowering technique was utilized adhering to the principles of ALARA. CT DOSE: 268.58 mGy.cm FINDINGS: Thyroid: Imaged portions of the thyroid gland are normal in size and attenuation. Thoracic aorta: The thoracic aorta is normal in caliber and demonstrates standard 3-vessel arch anato my. No dissection is seen. Pulmonary vasculature: The pulmonary trunk is normal in caliber. There are no filling defects identif ied in main, lobar, or segmental pulmonary branches to suggest pulmonary embolus. Heart: The heart is normal in size and without pericardial effusion. Lungs and pleural spaces: There is no airspace consolidation typical for pneumonia or pleural effusio n. Diffuse peribronchial thickening is observed, with foci of mucus plugging in the lower lobes. Scar ring/atelectasis is seen at the lung bases. The trachea and central airways are clear. A 6 cm right l ower lobe pulmonary nodule on image #68 is pathologically indeterminant and new from 2013. Mediastinum: There is no mediastinal lymphadenopathy. Dariana: Clear. Axillae: There is no axillary lymphadenopathy. Upper abdomen: Partially visualized upper abdominal viscera is within normal limits. Skeletal structures: The skeletal structures are osteopenic. Degenerative change is noted in the shou lders and spine. There are chronic/healed bilateral rib fractures. Minimal chronic superior endplate compression deformities are seen in the upper thoracic region. No lytic or blastic bony lesions are s een. IMPRESSION: 1. There is no evidence of pulmonary embolus in the main, lobar, or segmental pulmonary arteries. 2. There is no airspace consolidation or pleural effusion. 3. A 6 mm right lower lobe pulmonary nodule is pathologically indeterminant and new from 2013. Follow -up is recommended as per the Fleischner criteria. See below. 4. Additional findings as above. Please refer to below summary of Fleischner criteria recommendations for follow-up of incidental CT n odules (Flor Young, Guidelines for management of small pulmonary nodules detected on CT scans: A sta tement from the Fleischner Society, Radiology 237: [id number] 2004.) SOLID NODULES Solitary nodule size: <6 mm * low risk patients: no follow-up needed * high risk patients: optional CT at 12 months Solitary nodule size: 6-8 mm * low risk patients: follow-up at 6-12 months, then consider further follow-up at 18-24 months * high risk patients: initial follow-up CT at 6-12 months and then at 18-24 months if no change Solitary nodule size: >8 mm * either low or high risk patients - consider follow-up CT at 3 months, and/or CT-PET, and/or biopsy Multiple nodules size: <6 mm * low risk patients: no routine follow-up * high risk patients: optional CT at 12 months Multiple nodules size: 6-8 mm * low risk patients: follow-up at 3-6 months, then consider further follow-up at 18-24 months * high risk patients: follow-up at 3-6 months, then at 18-24 months if no change Multiple nodules size: >8 mm * low risk patients: follow-up at 3-6 months, then consider further follow-up at 18-24 months * high risk patients: follow-up at 3-6 months, then at 18-24 months if no change Note: newly detected indeterminate nodule in persons 35 years of age or older. * low risk patients: minimal or absent history of smoking and/or other known risk factors * high risk patients: history of smoking or of other known risk factors (e.g. first degree relative with lung cancer, or exposure to asbestos, radon, uranium) * if a nodule up to 8 mm is partly solid or is ground glass further follow-up is required after 24 m onths to exclude possible slow growing adenocarcinoma (EMANUEL) SUBSOLID NODULES Solitary pure ground-glass nodule * nodule size <6 mm - no CT follow-up required * nodule size >=6 mm - follow-up CT at 6-12 months, then every 2 years until 5 years Solitary part-solid nodule * nodule size <6 mm - no CT follow-up required * nodule size >=6 mm - follow-up CT at 3-6 months. If unchanged, and solid component remains <6 mm, then annual follow-up for 5 years Multiple subsolid nodules * nodule size <6 mm - follow-up CT at 3-6 months, consider further follow-up at 2 and 4 years if sta ble * nodule size >=6 mm - follow-up CT at 3-6 months, subsequent management based on the most suspiciou s nodule(s) ACT 112: Negative or not required by law. Electronically signed by: Virgilio Anderson M.D. 12/30/2023 4:49 PM
[2023-12-30] MEDS: POTASSIUM CHLORIDE CRTAB 20 MEQ TABCR PO ONE (17:44)
[2023-12-30] MEDS: SODIUM CHLORIDE 0.9% 1,000 ML IV SCH (17:45)
[2023-12-30] MEDS: guaiFENesin 600 MG TABCR PO SCH (20:58)
[2023-12-31 06:43] LABS: Hematocrit (blood only) 36.8 % (37.0-47.0); Hemoglobin 12.8 g/dl (12.0-16.0); Mean Corpuscular Hemoglobin 31.4 pg (25.0-34.0); Mean Corpuscular Hgb Conc 34.8 g/dL (32.0-36.0); Mean Corpuscular Volume 90.4 fL (80.0-100.0); Mean Platelet Volume 10.4 fL (9.4-12.4); Platelet Count 158 K/uL (130-400); RDW Coefficient of Variation 12.4 % (11.5-14.5); RDW Standard Deviation 40.9 fL (36.4-46.3); Red Blood Count 4.07 M/uL (4.20-5.40); White Blood Count 11.91 K/ul (4.8-10.8)
[2023-12-31 08:28] LABS: BUN Creatinine Ratio 21.7 (10-20); Calcium 8.7 mg/dl (8.6-10.3); Creatinine Clr Calc Pharmacy 72.4 ml/min; Est GFR (Non-African American) 92.4 ml/min; Magnesium 1.6 mg/dl (1.7-2.4); Phosphorus 2.7 mg/dl (2.5-4.9); Potassium 3.5 mmol/L (3.5-5.1)
[2023-12-31] MEDS: MAGNESIUM SULFATE / D5W 1 GM/100 ML BAG IV ONE (11:01)
[2023-12-31] MEDS: ACETAMINOPHEN 1,000 MG/100 ML VIAL IV STA (14:47)
[2023-12-31 14:58] LABS: Thyroid Stimulating Hormone 1.03 uIu/ml (0.300-4.500)
--- NOTE | 2023-12-31 17:25 | Hospitalist Progress Note ---
Date of Service December 31, 2023 Assessment & Plan (1) Acute respiratory failure with hypoxia: (2) Infection due to human metapneumovirus (hMPV): Plan: Pt presents with weakness, and cold-like symptoms Reports being at the social gathering (wedding) where multiple ppl had "cold" and her symptoms started shortly after that reports some cough, congestion, abd. discomfort, however weakness is her main complaint In the ED found mildly hypoxic, CXR and chest CT obtained - no pna, no PE, + pulm. nodule CT abd also obtained - showed bladder distention and we confirmed urinary retention in the ED, abd. discomfort much improved after straight cath. UA - negative Found positive for +human metapneumovirus blood cultx pending infectious panel/ tick borne panel ordered in the ED and pending, so far negative. Lyme negat. no fever, no WBC elevation, procal negative, however WBC today mildly increased at 11k will provide supportive care for viral infection IVF, guaifenesin, incentive elder, flutter valve currently still on suppl. O2, will try to wean off Had reported loose stool, will obtain stool pcr, and c. diff. no hx of recent abx use. Pt continues to be generally very weak (no focal weakness noted), needed assistance of several ppl to the bathroom, which is is unusual for her - cont. to closely monitor. Previously she was hospitalized with severe weakness without clear explanation of her symptoms. She was seen by [facility] at that time. If without improvement of symptoms, will consult with them again. Admission and Anticipated Discharge Date Admission Date: December 30, 2023 Subjective Pt seen in follow up of + human metapneumovirus, weakness, hypoxia Currently laying in bed in NAD, however appears very tired. She is able to open her eyes and answer simple questions. Son is present at the bedside and says she was very weak overnight and required several ppl to help her get to the bathroom Pt says she is feeling better but is very tired. She is on suppl. O2. She is not participating in conversation that much. Review of Systems Review of Systems: All systems reviewed & are unremarkable except as noted in Subjective Physical Exam Physical Exam: Constitutional: WD/WN, vitals as a ruth ann (on suppl. O2 ) Eyes: PERRL, conjunctiva e normal, anicteri c sclerae ENMT: external ear and n ose normal, oropha rynx normal Neck: supple Respiratory: normal respiratory effort (minimal r honchi, no wheezes ) and + cough; no respiratory distre ss Cardiovascular: RRR, no murmur, no edema Chest (Breasts): Chest: normal insp ection of chest Gastrointestinal ( Abdomen): normal bowel sound s, soft, nontender Musculoskeletal: moves extremities Skin: no rashes, warm an d dry Neurologic: PERRL, EOMI, no fa ce palsy, no dysar thria, moves extre mities Psychiatric: A+Ox3, euthymic af fect Results & Data Results & Data Vital Signs (Past 12 Hours) Vital Signs Temp Pulse Pulse Pulse Resp BP Pulse Ox 12/31/23 16:05 36.6 C 82 16 130/76 94 12/31/23 15:41 94 H 12/31/23 11:41 37.3 C 96 H 16 168/86 H 92 12/31/23 08:45 12/31/23 07:44 36.7 C 94 H 16 135/76 92 12/31/23 07:35 105 H O2 Del Method O2 Flow Rate 12/31/23 16:05 Room Air 12/31/23 15:41 12/31/23 11:41 Nasal Cannula 2 12/31/23 08:45 Nasal Cannula 2 12/31/23 07:44 Nasal Cannula 2 12/31/23 07:35 Laboratory Results 12/31/23 Range/Units 05:42 WBC 11.91 H (4.8-10.8) K/ul RBC 4.07 L (4.20-5.40) M/uL Hgb 12.8 (12.0-16.0) g/dl Hct 36.8 L (37.0-47.0) % MCV 90.4 (80.0-100.0) fL MCH 31.4 (25.0-34.0) pg MCHC 34.8 (32.0-36.0) g/dL RDW Std Deviation 40.9 (36.4-46.3) fL RDW Coeff of Alyssa 12.4 (11.5-14.5) % Plt Count 158 (130-400) K/uL MPV 10.4 (9.4-12.4) fL Sodium 135 L (136-145) mmol/L Potassium 3.5 (3.5-5.1) mmol/L Chloride 102 (98-107) mmol/L Carbon Dioxide 25 (21-32) mmol/L Anion Gap 8 (3-11) BUN 13 (6-23) mg/dl Creatinine 0.60 (0.6-1.2) mg/dl Est Cr Clr Drug Dosing 72.4 ml/min Est GFR ( Amer) 107.0 ml/min Est GFR (Non-Af Amer) 92.4 ml/min BUN/Creatinine Ratio 21.7 H (10-20) Glucose 122 H (70-99(Fasting)) mg/dl Calcium 8.7 (8.6-10.3) mg/dl Phosphorus 2.7 (2.5-4.9) mg/dl Magnesium 1.6 L (1.7-2.4) mg/dl TSH 1.030 (0.300-4.500) uIu/ml Medications Administered Current Inpatient Medications Acetaminophen (Acetaminophen 325 Mg Tab) 650 mg PO Q4H PRN PRN Reason: Pain or Fever Stop: 01/29/24 17:02 Diclofenac Sodium (Diclofenac Sod 1% Gel 100 Gm Tube) 2 gm EXT BID JESSICA; Protocol Stop: 01/30/24 17:24 Guaifenesin (Guaifenesin 600 Mg Tabcr) 600 mg PO Q12 JESSICA Stop: 01/29/24 20:59 Last Admin: 12/31/23 09:35 Dose: 600 mg Sodium Chloride (Nss) 1,000 mls @ 80 mls/hr IV .[id number] JESSICA Stop: 01/29/24 17:14 Last Infusion: 12/31/23 08:23 Dose: 0 mls/hr
[2023-12-31] MEDS: POTASSIUM CHLORIDE CRTAB 20 MEQ TABCR PO STA (17:32)
[2023-12-31] MEDS: DICLOFENAC SOD 1% GEL 100 GM TUBE EXT SCH (18:19)
--- NOTE | 2024-01-01 07:23 | Hospitalist Progress Note ---
Date of Service January 01, 2024 Assessment & Plan (1) Acute respiratory failure with hypoxia: (2) Infection due to human metapneumovirus (hMPV): Plan: Pt presents with weakness, and cold-like symptoms Reports being at the social gathering (wedding) where multiple ppl had "cold" and her symptoms started shortly after that reports some cough, congestion, abd. discomfort, however weakness is her main complaint In the ED found mildly hypoxic, CXR and chest CT obtained - no pna, no PE, + pulm. nodule CT abd also obtained - showed bladder distention and we confirmed urinary retention in the ED, abd. discomfort much improved after straight cath. UA - negative Found positive for +human metapneumovirus blood cultx pending infectious panel/ tick borne panel ordered in the ED and pending, so far negative. Lyme negat. no fever, no WBC elevation, procal negative, however WBC now mildly increased at 11k will provide supportive care for viral infection IVF, guaifenesin, incentive elder, flutter valve currently still on suppl. O2, will try to wean off Had reported loose stool, will obtain stool pcr, and c. diff. no hx of recent abx use. collection of sample is pending 12/30 - Pt continued to be generally very weak (no focal weakness noted), needed assistance of several ppl to the bathroom, which is unusual for her - cont. to closely monitor. Previously she was hospitalized with severe weakness without clear explanation of her symptoms. She was seen by [place] [facility] at that time. If without improvement of symptoms, will consult with them again. 12/31 - Pt now improved, able to ambulate to the bathroom without much assistance per RN. cont. to monitor. Admission and Anticipated Discharge Date Admission Date: December 30, 2023 Subjective Pt seen in follow up of + human metapneumovirus, weakness, hypoxia Currently sitting up in bed in NAD, she is feeling much better today. She was able to ambulate to bathroom today without much assistance, per RN at the bedside. Pt says she is tolerating PO intake. also present at the bedside. No fever, chills, + cough Continues to require suppl. O2. No abd. pain, n/v Encouraged IS. Sputum cultx pending. Review of Systems Review of Systems: All systems reviewed & are unremarkable except as noted in Subjective Physical Exam Physical Exam: Constitutional: WD/WN, vitals as a ruth ann (on suppl. O2 ) Eyes: PERRL, conjunctiva e normal, anicteri c sclerae ENMT: external ear and n ose normal Neck: supple Respiratory: normal respiratory effort (minimal r honchi, no wheezes ) and + cough; no respiratory distre ss Cardiovascular: RRR, no murmur, no edema Chest (Breasts): Chest: normal insp ection of chest Gastrointestinal ( Abdomen): normal bowel sound s, soft, nontender Musculoskeletal: moves extremities Skin: no rashes, warm an d dry Neurologic: PERRL, EOMI, no fa ce palsy, no dysar thria, moves extre mities Psychiatric: A+Ox3, euthymic af fect Results & Data Results & Data Vital Signs (Past 12 Hours) Vital Signs Temp Pulse Pulse Resp BP Pulse Ox O2 Del Method 01/01/24 03:17 36.6 C 87 18 114/65 95 Nasal Cannula 12/31/23 23:17 36.6 C 81 18 128/69 95 Nasal Cannula 12/31/23 22:58 75 12/31/23 19:39 Nasal Cannula O2 Flow Rate 01/01/24 03:17 3 12/31/23 23:17 3 12/31/23 22:58 12/31/23 19:39 3 Laboratory Results 01/01/24 12/31/23 Range/Units 08:58 05:42 WBC 11.11 H (4.8-10.8) K/ul RBC 4.47 (4.20-5.40) M/uL Hgb 13.9 (12.0-16.0) g/dl Hct 40.1 (37.0-47.0) % MCV 89.7 (80.0-100.0) fL MCH 31.1 (25.0-34.0) pg MCHC 34.7 (32.0-36.0) g/dL RDW Std Deviation 40.4 (36.4-46.3) fL RDW Coeff of Alyssa 12.1 (11.5-14.5) % Plt Count 163 (130-400) K/uL MPV 10.3 (9.4-12.4) fL Sodium 132 L (136-145) mmol/L Potassium 4.1 (3.5-5.1) mmol/L Chloride 98 (98-107) mmol/L Carbon Dioxide 27 (21-32) mmol/L Anion Gap 7 (3-11) BUN 11 (6-23) mg/dl Creatinine 0.56 L (0.6-1.2) mg/dl Est Cr Clr Drug Dosing 74.8 ml/min Est GFR ( Amer) 109.5 ml/min Est GFR (Non-Af Amer) 94.5 ml/min BUN/Creatinine Ratio 19.6 (10-20) Glucose 148 H (70-99(Fasting)) mg/dl Calcium 9.2 (8.6-10.3) mg/dl Phosphorus 2.0 L (2.5-4.9) mg/dl Magnesium 1.8 (1.7-2.4) mg/dl TSH 1.030 (0.300-4.500) uIu/ml Medications Administered Current Inpatient Medications Acetaminophen (Acetaminophen 325 Mg Tab) 650 mg PO Q4H PRN PRN Reason: Pain or Fever Stop: 01/29/24 17:02 Diclofenac Sodium (Diclofenac Sod 1% Gel 100 Gm Tube) 2 gm EXT BID [facility]; Protocol Stop: 01/30/24 17:24 Last Admin: 12/31/23 19:59 Dose: 2 gm Guaifenesin (Guaifenesin 600 Mg Tabcr) 600 mg PO Q12 [facility] Stop: 01/29/24 20:59 Last Admin: 12/31/23 19:59 Dose: 600 mg Sodium Chloride (Nss) 1,000 mls @ 80 mls/hr IV .[id number] [facility] Stop: 01/29/24 17:14 Last Infusion: 12/31/23 19:07 Dose: Infused
[2024-01-01 10:01] LABS: Hematocrit (blood only) 40.1 % (37.0-47.0); Hemoglobin 13.9 g/dl (12.0-16.0); Mean Corpuscular Hemoglobin 31.1 pg (25.0-34.0); Mean Corpuscular Hgb Conc 34.7 g/dL (32.0-36.0); Mean Corpuscular Volume 89.7 fL (80.0-100.0); Mean Platelet Volume 10.3 fL (9.4-12.4); Platelet Count 163 K/uL (130-400); RDW Coefficient of Variation 12.1 % (11.5-14.5); RDW Standard Deviation 40.4 fL (36.4-46.3); Red Blood Count 4.47 M/uL (4.20-5.40); White Blood Count 11.11 K/ul (4.8-10.8)
[2024-01-01 10:29] LABS: BUN Creatinine Ratio 19.6 (10-20); Calcium 9.2 mg/dl (8.6-10.3); Creatinine Clr Calc Pharmacy 74.8 ml/min; Est GFR (African American) 109.5 ml/min; Est GFR (Non-African American) 94.5 ml/min; Magnesium 1.8 mg/dl (1.7-2.4); Potassium 4.1 mmol/L (3.5-5.1)
[2024-01-01] MEDS: ACETAMINOPHEN 325 MG TAB PO PRN (15:56)
[2024-01-01] MEDS: SODIUM CHLORIDE 0.9% 500 ML IV SCH (18:41)
[2024-01-01] MEDS: POT PHOSPHATE MONOBASIC W/ SOD TAB PO SCH (19:19)
[2024-01-01] MEDS: METOPROLOL TARTRATE 25 MG TAB PO ONE (19:19)
[2024-01-01] MEDS: MAGNESIUM OXIDE 400 MG TAB PO SCH (20:29)
[2024-01-02 06:55] LABS: Hematocrit (blood only) 37.3 % (37.0-47.0); Hemoglobin 12.7 g/dl (12.0-16.0); Mean Corpuscular Hemoglobin 30.6 pg (25.0-34.0); Mean Corpuscular Volume 89.9 fL (80.0-100.0); Mean Platelet Volume 10.3 fL (9.4-12.4); Platelet Count 160 K/uL (130-400); RDW Standard Deviation 39.6 fL (36.4-46.3); Red Blood Count 4.15 M/uL (4.20-5.40); White Blood Count 7.71 K/ul (4.8-10.8)
--- NOTE | 2024-01-02 07:08 | Electrocardiogram Report ---
Test Reason : Blood Pressure : / mmHG Vent. Rate : 102 BPM Atrial Rate : 102 BPM P-R Int : 148 ms QRS Dur : 084 ms QT Int : 310 ms P-R-T Axes : 084 034 -45 degrees QTc Int : 404 ms Sinus tachycardia with Premature atrial complexes Abnormal ECG When compared with ECG of 03-APR-2023 05:04, ST now depressed in Inferior leads ST no longer elevated in Anterior leads T wave inversion now evident in Inferior leads T wave inversion now evident in Anterior leads Confirmed by Zia Marshall ([id number] on 01/02/2024 7:08:38 AM Referred By: REFERRED SELF Confirmed By:Zia Marshall
[2024-01-02 07:32] LABS: BUN Creatinine Ratio 18.5 (10-20); Calcium 8.7 mg/dl (8.6-10.3); Est GFR (African American) 110.8 ml/min; Est GFR (Non-African American) 95.6 ml/min; Magnesium 1.7 mg/dl (1.7-2.4); Phosphorus 1.7 mg/dl (2.5-4.9); Potassium 3.8 mmol/L (3.5-5.1)
--- NOTE | 2024-01-02 10:12 | Hospitalist Progress Note ---
Date of Service January 02, 2024 Assessment & Plan (1) Acute respiratory failure with hypoxia: (2) Infection due to human metapneumovirus (hMPV): Plan: per previous hospitalist notes with addendum: Pt presents with weakness, and cold-like symptoms Reports being at the social gathering (wedding) where multiple ppl had "cold" and her symptoms started shortly after that reports some cough, congestion, abd. discomfort, however weakness is her main complaint In the ED found mildly hypoxic, CXR and chest CT obtained - no pna, no PE, + pulm. nodule CT abd also obtained - showed bladder distention and we confirmed urinary retention in the ED, abd. discomfort much improved after straight cath. UA - negative Found positive for +human metapneumovirus blood cultx pending infectious panel/ tick borne panel ordered in the ED and pending, so far negative. Lyme negat. no fever, no WBC elevation, procal negative, however WBC now mildly increased at 11k will provide supportive care for viral infection IVF, guaifenesin, incentive elder, flutter valve currently still on suppl. O2, will try to wean off Had reported loose stool, will obtain stool pcr, and c. diff. no hx of recent abx use. collection of sample is pending 12/30 - Pt continued to be generally very weak (no focal weakness noted), needed assistance of several ppl to the bathroom, which is unusual for her - cont. to closely monitor. Previously she was hospitalized with severe weakness without clear explanation of her symptoms. She was seen by [place] [facility] at that time. If without improvement of symptoms, will consult with them again. 12/31 - Pt now improved, able to ambulate to the bathroom without much assistance per RN. cont. to monitor. 01/01 Acute Viral Bronchitis with Hypoxia - CT chest: There is no airspace consolidation typical for pneumonia or pleural effusion. Diffuse peribronchial thickening is observed, with foci of mucus plugging in the lower lobes. Scarring/atelectasis is seen at the lung bases. The trachea and central airways are clear. A 6 cm right lower lobe pulmonary nodule on image #68 is pathologically indeterminant and new from 2013. - afebrile , still on 3L O2 - start Z pack - add hypertonic saline nebs, IS, FV continue Mucinex add Flonase - wean off O2 Hypophosphatemia - Neutraphos 250mg QID repeat tomorrow Admission and Anticipated Discharge Date Admission Date: December 30, 2023 Subjective ff up for acute viral bronchitis, weakness, etc seen resting in bed, sitting up appears tired but comfortable states she was feeling ok until she ambulated, then she felt tired breathing is ok, no shortness of breath has occasional productive cough- clear/white (+) L ear pain, no discharge, tinnitus, decreased hearing no other new symptoms Review of Systems Review of Systems: all noted and negative except for above Physical Exam Physical Exam: General- oriented x 3, not in distress, speaks in sentences with no effort or accessory muscle use Eyes- anicteric Ear- no tenderness/discharge Neck- no JVD Lungs- (+) clear BS BL Heart- normal rate, regular rhythm; no murmurs Abdomen- normal bowel sounds, nondistended, soft, nontender Extremities- no pretibial edema, no calf tenderness Neuro- alert, oriented x 2; no gross focal neurologic deficits Skin- warm & dry Results & Data Results & Data Vital Signs (Past 12 Hours) Vital Signs Temp Pulse Pulse Resp BP Pulse Ox O2 Del Method 01/02/24 07:41 Nasal Cannula 01/02/24 07:39 36.3 C L 96 H 22 152/76 H 94 Nasal Cannula 01/02/24 07:08 95 H 01/02/24 03:22 37.3 C 96 H 18 120/71 92 Nasal Cannula 01/01/24 23:15 36.6 C 96 H 18 123/68 93 Nasal Cannula 01/01/24 23:09 97 H O2 Flow Rate 01/02/24 07:41 3 01/02/24 07:39 3 01/02/24 07:08 01/02/24 03:22 3 01/01/24 23:15 3 01/01/24 23:09 all noted and reviewed including below
[2024-01-02] MEDS: POT PHOSPHATE MONOBASIC W/ SOD TAB PO SCH (10:13)
[2024-01-02] MEDS: SODIUM CHLOR 7% 4 ML NEB NEB SCH (10:52)
[2024-01-02] MEDS: FLUTICASONE PROPIONATE NA SPR 16 GM BTL SCH (11:30)
[2024-01-02] MEDS: AZITHROMYCIN 250 MG TAB PO ONE (12:47)
[2024-01-02] MEDS: ENOXAPARIN INJ 40 MG/0.4 ML SYR SQ SCH (13:57)
--- NOTE | 2024-01-02 19:31 | XRay Report ---
XR chest 1V portable CLINICAL HISTORY: ff up, hypoxia TECHNIQUE: Single frontal radiograph of the chest was obtained. Comparison: Comparison is made to chest radiograph 12/20/2023 FINDINGS: No lines and tubes are seen. Cardiomegaly is noted. Prominence and cephalization of the vasculature i s seen. Right lower lung airspace opacity is seen. No evidence of pleural effusion or pneumothorax. IMPRESSION: Right lower lung airspace opacity. This may represent atelectasis, pneumonia, and/or aspiration. Prom inence of the pulmonary vasculature is seen. ACT 112: Negative or not required by law. Electronically signed by: Aleksey Kapoor M.D. 01/02/2024 7:28 PM
[2024-01-03] MEDS: AZITHROMYCIN 250 MG TAB PO SCH (08:16)
[2024-01-03 08:24] LABS: BUN Creatinine Ratio 21.4 (10-20); Calcium 8.7 mg/dl (8.6-10.3); Creatinine Clr Calc Pharmacy 75.3 ml/min; Est GFR (African American) 109.5 ml/min; Est GFR (Non-African American) 94.5 ml/min; Magnesium 1.8 mg/dl (1.7-2.4); Phosphorus 4.7 mg/dl (2.5-4.9); Potassium 3.3 mmol/L (3.5-5.1)
[2024-01-03] MEDS: cefTRIAXone SODIUM 2,000 MG in DEXTROSE 5 % MINI-B 50 ML IV SCH (11:44)
[2024-01-03] MEDS: ADVANCED PROBIOTIC 625 MG CAPSULE PO SCH (11:45)
[2024-01-03] MEDS: NYSTATIN SUSP 500,000 U/5 ML UDC PO SCH (12:33)
[2024-01-03] MEDS: AZITHROMYCIN 250 MG TAB PO ONE (16:05)
--- NOTE | 2024-01-03 19:34 | Hospitalist Progress Note ---
Date of Service January 03, 2024 delayed entry date of service noted above Assessment & Plan (1) Acute respiratory failure with hypoxia: (2) Infection due to human metapneumovirus (hMPV): Plan: per previous hospitalist notes with addendum: Pt presents with weakness, and cold-like symptoms Reports being at the social gathering (wedding) where multiple ppl had "cold" and her symptoms started shortly after that reports some cough, congestion, abd. discomfort, however weakness is her main complaint In the ED found mildly hypoxic, CXR and chest CT obtained - no pna, no PE, + pulm. nodule CT abd also obtained - showed bladder distention and we confirmed urinary retention in the ED, abd. discomfort much improved after straight cath. UA - negative Found positive for +human metapneumovirus blood cultx pending infectious panel/ tick borne panel ordered in the ED and pending, so far negative. Lyme negat. no fever, no WBC elevation, procal negative, however WBC now mildly increased at 11k will provide supportive care for viral infection IVF, guaifenesin, incentive elder, flutter valve currently still on suppl. O2, will try to wean off Had reported loose stool, will obtain stool pcr, and c. diff. no hx of recent abx use. collection of sample is pending 12/30 - Pt continued to be generally very weak (no focal weakness noted), needed assistance of several ppl to the bathroom, which is unusual for her - cont. to closely monitor. Previously she was hospitalized with severe weakness without clear explanation of her symptoms. She was seen by [place] [facility] at that time. If without improvement of symptoms, will consult with them again. 12/31 - Pt now improved, able to ambulate to the bathroom without much assistance per RN. cont. to monitor. 01/01 Acute Viral Bronchitis with Hypoxia - CT chest: There is no airspace consolidation typical for pneumonia or pleural effusion. Diffuse peribronchial thickening is observed, with foci of mucus plugging in the lower lobes. Scarring/atelectasis is seen at the lung bases. The trachea and central airways are clear. A 6 cm right lower lobe pulmonary nodule on image #68 is pathologically indeterminant and new from 2013. - afebrile , still on 3L O2 - start Z pack - add hypertonic saline nebs, IS, FV continue Mucinex add Flonase - wean off O2 01/02 Improving Continue antibiotic, supportive care next Hypophosphatemia - Neutraphos 250mg QID Admission and Anticipated Discharge Date Admission Date: December 30, 2023 Subjective Follow-up for pneumonia, etc. Seen resting in bed, comfortable, no distress Still feeling weak Breathing is gradually improving Appetite also is gradually improving No other new symptom Review of Systems Review of Systems: all noted and negative except for above Physical Exam Physical Exam: General- oriented x 3, not in distress, speaks in sentences with no effort or accessory muscle use Eyes- anicteric Neck- no JVD Lungs--mild rales left base Heart- normal rate, regular rhythm; no murmurs Abdomen- normal bowel sounds, nondistended, soft, nontender Extremities- no pretibial edema, no calf tenderness Neuro- alert, oriented x 3; no gross focal neurologic deficits Skin- warm & dry Results & Data Results & Data Vital Signs (Past 12 Hours) Vital Signs Temp Pulse Pulse Resp BP Pulse Ox O2 Del Method 01/03/24 19:29 95 H 16 94 Nasal Cannula 01/03/24 15:39 37.7 C H 103 H 16 160/83 H 95 Nasal Cannula 01/03/24 15:29 108 H 01/03/24 12:00 36.4 C L 97 H 16 143/75 H 94 Room Air 01/03/24 07:57 36.4 C L 88 16 124/76 94 Room Air 01/03/24 07:48 Nasal Cannula O2 Flow Rate 01/03/24 19:29 3 01/03/24 15:39 3 01/03/24 15:29 01/03/24 12:00 01/03/24 07:57 01/03/24 07:48 3 all noted and reviewed including below
[2024-01-03 22:42] LABS: Babesia microti DNA Not Detected (Not Detected)
[2024-01-04 07:11] LABS: BUN Creatinine Ratio 19.1 (10-20); Calcium 8.7 mg/dl (8.6-10.3); Creatinine Clr Calc Pharmacy 88.1 ml/min; Est GFR (Non-African American) 100.1 ml/min; Magnesium 1.8 mg/dl (1.7-2.4); Phosphorus 3.6 mg/dl (2.5-4.9); Potassium 3.1 mmol/L (3.5-5.1)
[2024-01-04] MEDS: AZITHROMYCIN 250 MG TAB PO SCH (08:12)
[2024-01-04] MEDS: POTASSIUM CHLORIDE CRTAB 20 MEQ TABCR PO SCH (09:43)
--- NOTE | 2024-01-04 18:40 | Hospitalist Progress Note ---
Date of Service January 04, 2024 Assessment & Plan (1) Acute respiratory failure with hypoxia: (2) Infection due to human metapneumovirus (hMPV): Plan: per previous hospitalist notes with addendum: Pt presents with weakness, and cold-like symptoms Reports being at the social gathering (wedding) where multiple ppl had "cold" and her symptoms started shortly after that reports some cough, congestion, abd. discomfort, however weakness is her main complaint In the ED found mildly hypoxic, CXR and chest CT obtained - no pna, no PE, + pulm. nodule CT abd also obtained - showed bladder distention and we confirmed urinary retention in the ED, abd. discomfort much improved after straight cath. UA - negative Found positive for +human metapneumovirus blood cultx pending infectious panel/ tick borne panel ordered in the ED and pending, so far negative. Lyme negat. no fever, no WBC elevation, procal negative, however WBC now mildly increased at 11k will provide supportive care for viral infection IVF, guaifenesin, incentive elder, flutter valve currently still on suppl. O2, will try to wean off Had reported loose stool, will obtain stool pcr, and c. diff. no hx of recent abx use. collection of sample is pending 12/30 - Pt continued to be generally very weak (no focal weakness noted), needed assistance of several ppl to the bathroom, which is unusual for her - cont. to closely monitor. Previously she was hospitalized with severe weakness without clear explanation of her symptoms. She was seen by [place] [facility] at that time. If without improvement of symptoms, will consult with them again. 12/31 - Pt now improved, able to ambulate to the bathroom without much assistance per RN. cont. to monitor. 01/01 Acute Viral Bronchitis with Hypoxia - CT chest: There is no airspace consolidation typical for pneumonia or pleural effusion. Diffuse peribronchial thickening is observed, with foci of mucus plugging in the lower lobes. Scarring/atelectasis is seen at the lung bases. The trachea and central airways are clear. A 6 cm right lower lobe pulmonary nodule on image #68 is pathologically indeterminant and new from 2013. - afebrile , still on 3L O2 - start Z pack - add hypertonic saline nebs, IS, FV continue Mucinex add Flonase - wean off O2 4/4 improving continue present regimen wean off O2 Hypophosphatemia - Neutraphos 250mg QID repeat tomorrow - resolved Admission and Anticipated Discharge Date Admission Date: December 30, 2023 Subjective ff up for pneumonia, etc seen resting in bed, comfortable states she is starting to feel better cough, dyspnea improving appetite improving no other symptoms Review of Systems Review of Systems: all noted and negative except for above Physical Exam Physical Exam: General- oriented x 3, not in distress, speaks in sentences with no effort or accessory muscle use Eyes- anicteric Neck- no JVD Lungs- mild rales, right base Heart- normal rate, regular rhythm; no murmurs Abdomen- normal bowel sounds, nondistended, soft, nontender Extremities- no pretibial edema, no calf tenderness Neuro- alert, oriented x 3; no gross focal neurologic deficits Skin- warm & dry Results & Data Results & Data Vital Signs (Past 12 Hours) Vital Signs Temp Pulse Pulse Resp BP Pulse Ox O2 Del Method 01/04/24 16:11 36.6 C 82 16 125/76 97 Nasal Cannula 01/04/24 15:20 98 H 01/04/24 11:41 36.8 C 84 16 137/76 91 Nasal Cannula 01/04/24 08:00 Nasal Cannula 01/04/24 08:00 98 H 01/04/24 07:32 36.3 C L 84 16 157/90 H 96 Nasal Cannula O2 Flow Rate 01/04/24 16:11 3 01/04/24 15:20 01/04/24 11:41 3 01/04/24 08:00 3 01/04/24 08:00 01/04/24 07:32 3 all noted and reviewed including below
[2024-01-05 01:07] LABS: Ehrlichia chaff DNA Bld Negative (Negative)
[2024-01-05 06:25] LABS: BUN Creatinine Ratio 14.6 (10-20); Calcium 8.6 mg/dl (8.6-10.3); Creatinine Clr Calc Pharmacy 86.3 ml/min; Est GFR (African American) 115.2 ml/min; Est GFR (Non-African American) 99.4 ml/min; Magnesium 1.9 mg/dl (1.7-2.4); Phosphorus 3.6 mg/dl (2.5-4.9); Potassium 3.6 mmol/L (3.5-5.1)
--- NOTE | 2024-01-05 13:11 | Hospitalist Progress Note ---
Date of Service January 05, 2024 delayed entry date of service noted above Assessment & Plan (1) Acute respiratory failure with hypoxia: (2) Acute bronchitis: (3) Pneumonia: (4) Infection due to human metapneumovirus (hMPV): Plan: per previous hospitalist notes with addendum: Pt presents with weakness, and cold-like symptoms Reports being at the social gathering (wedding) where multiple ppl had "cold" and her symptoms started shortly after that reports some cough, congestion, abd. discomfort, however weakness is her main complaint In the ED found mildly hypoxic, CXR and chest CT obtained - no pna, no PE, + pulm. nodule CT abd also obtained - showed bladder distention and we confirmed urinary retention in the ED, abd. discomfort much improved after straight cath. UA - negative Found positive for +human metapneumovirus blood cultx pending infectious panel/ tick borne panel ordered in the ED and pending, so far negative. Lyme negat. CT chest: There is no airspace consolidation typical for pneumonia or pleural effusion. Di ffuse peribronchial thickening is observed, with foci of mucus plugging in the lower lobes. Scarring/atelectasis is seen at the lung bases. The trachea and central airways are clear. A 6 cm right lower lobe pulmonary nodule on image #68 is pathologically indeterminant and new from 2013. Patient initially given supportive care, without improvement-still hypoxic, on O2 supplement, generally weak Repeat chest x-ray showing possible right lower lobe pneumonia IMPRESSION: Right lower lung airspace opacity. This may represent atelectasis, pneumonia, and/or aspiration. Prominence of the pulmonary vasculature is seen. ACT 112: Negative or not required by law. Started on ceftriaxone plus azithromycin Hypertonic saline nebs, Mucinex, Flonase Patient gradually improved Two-step exercise test: Patient requiring 2 L of oxygen via nasal With ambulation Continue course of cefdinir x 4 days Using next Hypokalemia -Potassium supplement -BMP on follow-up visit with PCP Hypophosphatemia - Neutraphos 250mg QID Resolved Disposition PCP follow-up in 1 week plan of care discussed with patient and her in detail and at length all questions answered They are understanding, agreeable, comfortable with the plan of care Admission and Anticipated Discharge Date Admission Date: December 30, 2023 Subjective Follow-up for pneumonia, etc. Seen resting in bed, comfortable, not in distress States she feels much better overall Breathing is much better Minimal cough No chest pain No other new symptoms States she is ready for discharge today Review of Systems Review of Systems: all noted and negative except for above Physical Exam Physical Exam: General- oriented x 3, not in distress, speaks in sentences with no effort or accessory muscle use Eyes- anicteric Neck- no JVD Lungs-very faint rhonchi at the right base, clear on the right Good air entry bilaterally Heart- normal rate, regular rhythm; no murmurs Abdomen- normal bowel sounds, nondistended, soft, nontender Extremities- no pretibial edema, no calf tenderness Neuro- alert, oriented x 3; no gross focal neurologic deficits Skin- warm & dry Results & Data Results & Data Vital Signs (Past 12 Hours) Vital Signs Temp Pulse Pulse Resp BP Pulse Ox O2 Del Method 01/05/24 12:04 36.7 C 88 16 151/88 H 93 Room Air 01/05/24 08:29 36.4 C L 84 16 167/99 H 91 Room Air 01/05/24 08:00 01/05/24 08:00 90 01/05/24 07:42 98 H 20 92 Nasal Cannula 01/05/24 03:09 36.8 C 98 H 18 137/80 94 Nasal Cannula O2 Flow Rate 01/05/24 12:04 01/05/24 08:29 01/05/24 08:00 3 01/05/24 08:00 01/05/24 07:42 3 01/05/24 03:09 3 all noted and reviewed including below
--- NOTE | 2024-01-07 17:12 | Discharge Summary ---
Discharge Summary Date of Service January 07, 2024 Notes For Next Care Provider Require further evaluation and management of pulmonary nodule seen on CT chest Please refer to assessment plan below for further details. Next Medication Changes From Visit Cefdinir-antibiotic for pneumonia Mucinex-for cough Flonase-for nasal drainage Nystatin-for oral thrush Potassium supplement Admission HPI Per Admitting Provider 68 yo Elio F with no significant med. hx, lastly hospitalized here in April 2023 - at that time presented with altered mental status, L-sided weakness, stroke was ruled out, and she was treated for poss. Lyme meningitis. Today she presents with her due to flu like symptoms and weakness, abd. discomfort and found to be mildly hypoxic in the ED. Work-up in ED so far only shows being positive for human metapneumovirus. In Ed she was on 3L of oxygen. CT abdomen pelvis was obtained and showed distended bladder - i communicated w/ pt's RN in ED - she had pt void 500cc of urine, then bladder scanned her and straight cathed her for 650 cc of urine. UA negative for UTI. CT chest also obtained as she was being hypoxic. In the ED, no elev. WBC, no fever, procal negative. Blood cultx pending. She received NS, toradol, zofran, was placed on oxygen and felt better - even to the point when her was asking to get released from ED. History is mostly obtained from the , pt is awake and alert but appears quite weak. They say that they were at the wedding on Monday and she felt well at that time. However, she was cold and multiple people were sick w/ cold. On Monday she started to develop some cold like symptoms, but not severe - reports headache, congestion, mild cough. This AM she became very weak and that's why they presented in the hospital. She says after straight cath she is having no abdominal discomfort and asking for food. RN in the ED says that when pt was trying to eat earlier she vomited. Currently pt is down from 3L to 1L of suppl. O2. Discussed with the pt and that given that pt is still on oxygen, feeling weak and not sure if able to even eat, will keep her in the hospital for close monitoring and will re-eval tomorrow. They are in agreement. Admission Exam Per Admitting Provider Constitutional: WD/WN, vitals as above (on suppl. O2) Eyes: PERRL, conjunctivae normal, anicteric sclerae ENMT: external ear and nose normal, oropharynx normal Neck: trachea midline, no thyromegaly Respiratory: normal respiratory effort (minimal rhonchi, no wheezes) and + cough; no respiratory distress Cardiovascular: RRR, no murmur, no edema Chest (Breasts): Chest: normal inspection of chest Gastrointestinal (Abdomen): normal bowel sounds, soft, nontender, no hepatosplenomegaly Musculoskeletal: no cyanosis or clubbing, extremities motor strength 5/5 Skin: no rashes, warm and dry Neurologic: PERRL, EOMI, accommodation nl, no face palsy, no dysarthria Psychiatric: A+Ox3, euthymic affect Principal Dx & Hospital Course #1 = Principal Diagnosis (1) Acute respiratory failure with hypoxia: (2) Acute bronchitis: (3) Pneumonia: (4) Infection due to human metapneumovirus (hMPV): per previous hospitalist notes with addendum: Pt presents with weakness, and cold-like symptoms Reports being at the social gathering () where multiple ppl had "cold" and her symptoms started shortly after that reports some cough, congestion, abd. discomfort, however weakness is her main complaint In the ED found mildly hypoxic, CXR and chest CT obtained - no pna, no PE, + pulm. nodule CT abd also obtained - showed bladder distention and we confirmed urinary retention in the ED, abd. discomfort much improved after straight cath. UA - negative Found positive for +human metapneumovirus blood cultx pending infectious panel/ tick borne panel ordered in the ED and pending, so far n egative. Lyme negat. CT chest: There is no airspace consolidation typical for pneumonia or pleural effusion. Diffuse peribronchial thickening is observed, with foci of mucus plugging in the lower lobes. Scarring/atelectasis is seen at the lung bases. The trachea and central airways are clear. A 6 cm right lower lobe pulmonary nodule on image #68 is pathologically indeterminant and new from 2013. Patient initially given supportive care, without improvement-still hypoxic, on O2 supplement, generally weak Repeat chest x-ray showing possible right lower lobe pneumonia IMPRESSION: Right lower lung airspace opacity. This may represent atelectasis, pneumonia, and/or aspiration. Prominence of the pulmonary vasculature is seen. ACT 112: Negative or not required by law. Started on ceftriaxone plus azithromycin Hypertonic saline nebs, Mucinex, Flonase Patient gradually improved Two-step exercise test: Patient requiring 2 L of oxygen via nasal With ambulation Continue course of cefdinir x 4 days Pulmonary nodule Seen on CT chest Bilateral lower lobe subcentimeter nodules with the largest on the right measuring 5 mm. Please refer to the chart below for recommended follow-up. Please refer to full report in the Ordered Studies section Further work up, management, and ff up as outpatient Other abnormal CT findings CT abd: Mild circumferential thickening of the distal esophagus. A few subcentimeter hypodense lesions within the left hepatic lobe are technically too small to characterize but favor cysts. The main portal vein is patent. The gallbladder, pancreas, spleen, and adrenal glands are unremarkable. There are few subcentimeter hypodense lesions within the left kidney which are also too small to characterize but favor cysts. The right kidney enhances normally. No hydronephrosis. Mild calcified plaque within the normal caliber abdominal aorta CT head: No acute intracranial abnormality. Atrophy and microvascular ischemic changes. Further work up, management, and ff up as outpatient Hypokalemia -Potassium supplement -BMP on follow-up visit with PCP Hypophosphatemia - Neutraphos 250mg QID Resolved Disposition PCP follow-up in 1 week plan of care discussed with patient and her in detail and at length all questions answered They are understanding, agreeable, comfortable with the plan of care Discharge Exam General- oriented x 3, not in distress, speaks in sentences with no effort or accessory muscle use Eyes- anicteric Neck- no JVD Lungs-very faint rhonchi at the right base, clear on the right Good air entry bilaterally Heart- normal rate, regular rhythm; no murmurs Abdomen- normal bowel sounds, nondistended, soft, nontender Extremities- no pretibial edema, no calf tenderness Neuro- alert, oriented x 3; no gross focal neurologic deficits Skin- warm & dry Updated Medication List Medication Instructions Recorded Confirmed Type acetaminophen 325 mg tablet 325 mg PO QID PRN Pain 12/30/23 12/30/23 History (Tylenol) calcium carbonate 600 mg-vitamin 1 tab PO DAILY 12/30/23 12/30/23 History D3 20 mcg (800 unit) chewable tablet (Caltrate 600 plus D) fish oil-vit E-fat acids 2 cap PO DAILY 12/30/23 12/30/23 History comb.5-herbal comb. 137 400 mg-5 unit capsule cefdinir 300 mg capsule 300 mg PO BID 4 days #8 caps 01/05/24 Rx guaifenesin 600 mg tablet, 600 mg PO Q12 5 days #10 tabs 01/05/24 Rx extended release 12 hr (Mucinex) nystatin 100,000 unit/mL oral 5 ml PO QID 5 days #100 mL 01/05/24 Rx suspension potassium chloride 20 mEq 40 meq (2 x 20 mEq) PO DAILY 5 01/05/24 Rx tablet,extended release(part/cryst) days #10 tabs Hospital Stay Data Consultations 12/30/23 14:22 ED Decision to Admit Stat Diagnostic Imagining Performed Laboratory Results WBC 7.71 K/ul (4.8-10.8) 01/02/24 05:58 RBC 4.15 M/uL (4.20-5.40) L 01/02/24 05:58 Hgb 12.7 g/dl (12.0-16.0) 01/02/24 05:58 POC Hgb 14.3 g/dl (12.0-16.0) 12/30/23 12:51 Hct 37.3 % (37.0-47.0) 01/02/24 05:58 POC Hct 42 % (37-47) 12/30/23 12:51 MCV 89.9 fL (80.0-100.0) 01/02/24 05:58 MCH 30.6 pg (25.0-34.0) 01/02/24 05:58 MCHC 34.0 g/dL (32.0-36.0) 01/02/24 05:58 RDW Std Deviation 39.6 fL (36.4-46.3) 01/02/24 05:58 RDW Coeff of Alyssa 12.0 % (11.5-14.5) 01/02/24 05:58 Plt Count 160 K/uL (130-400) 01/02/24 05:58 MPV 10.3 fL (9.4-12.4) 01/02/24 05:58 Immature Gran % (Auto) 0.1 % 12/30/23 12:35 Neut % (Auto) 87.7 % 12/30/23 12:35 Lymph % (Auto) 6.5 % 12/30/23 12:35 [place] % (Auto) 5.5 % 12/30/23 12:35 Eos % (Auto) 0.0 % 12/30/23 12:35 Baso % (Auto) 0.2 % 12/30/23 12:35 Neut # (Auto) 7.82 K/uL (1.40-6.50) H 12/30/23 12:35 Lymph # (Auto) 0.58 K/uL (1.20-3.40) L 12/30/23 12:35 [place] # (Auto) 0.49 K/uL (0.11-0.59) 12/30/23 12:35 Eos # (Auto) 0.00 K/uL (0.00-0.50) 12/30/23 12:35 Baso # (Auto) 0.02 K/uL (0.00-0.20) 12/30/23 12:35 Immature Gran # (Auto) 0.01 K/uL (0.01-0.20) 12/30/23 12:35 RBC Morphology Unremarkable 12/30/23 12:35 PT 10.7 Seconds (9.0-12.0) 12/30/23 12:35 INR 1.0 (0.9-1.1) 12/30/23 12:35 APTT 27 Seconds (21-31) 12/30/23 12:35 PTT Ratio 1.0 12/30/23 12:35 VBG pH 7.45 (7.36-7.41) H 12/30/23 13:12 VBG pCO2 42 mmHg (38-50) 12/30/23 13:12 VBG pO2 55 mmHg 12/30/23 13:12 VBG HCO3 29 mmol/L 12/30/23 13:12 VBG O2 Saturation 87.3 % 12/30/23 13:12 VBG Base Excess 4.7 mEq/L 12/30/23 13:12 POC Sodium 134 mmol/L (135-144) L 12/30/23 12:51 Sodium 135 mmol/L (136-145) L 01/05/24 05:42 POC Potassium 3.5 mmol/L (3.3-5.0) 12/30/23 12:51 Potassium 3.6 mmol/L (3.5-5.1) 01/05/24 05:42 POC Chloride 95 mmol/L (101-112) L 12/30/23 12:51 Chloride 99 mmol/L (98-107) 01/05/24 05:42 Carbon Dioxide 30 mmol/L (21-32) 01/05/24 05:42 POC Total CO2 28 mmol/L (24-31) 12/30/23 12:51 Anion Gap 6 (3-11) 01/05/24 05:42 POC Anion Gap 16.0 mmol/L (16-25) 12/30/23 12:51 POC BUN 11 mg/dl (7-18) 12/30/23 12:51 BUN 7 mg/dl (6-23) 01/05/24 05:42 Creatinine 0.48 mg/dl (0.6-1.2) L 01/05/24 05:42 POC Creatinine 0.7 mg/dl (0.6-1.3) 12/30/23 12:51 Est Cr Clr Drug Dosing 86.3 ml/min 01/05/24 05:42 Est GFR ( Amer) 115.2 ml/min 01/05/24 05:42 Est GFR (Non-Af Amer) 99.4 ml/min 01/05/24 05:42 BUN/Creatinine Ratio 14.6 (10-20) 01/05/24 05:42 Glucose 126 mg/dl (70-99(Fasting)) H 01/05/24 05:42 POC Glucose (other) 136 mg/dl (70-99) H 12/30/23 12:51 Lactate 0.9 mmol/L (0.4-2.0) 12/30/23 12:35 Calcium 8.6 mg/dl (8.6-10.3) 01/05/24 05:42 POC Ioniz Calcium [place] 1.15 mmol/l (1.12-1.32) 12/30/23 12:51 Phosphorus 3.6 mg/dl (2.5-4.9) 01/05/24 05:42 Magnesium 1.9 mg/dl (1.7-2.4) 01/05/24 05:42 Total Bilirubin 0.5 mg/dl (0.2-1.0) 12/30/23 12:35 Direct Bilirubin 0.1 mg/dl (0-0.2) 12/30/23 12:35 AST 28 U/L (13-39) 12/30/23 12:35 ALT 17 U/L (7-52) 12/30/23 12:35 Alkaline Phosphatase 55 U/L (34-104) 12/30/23 12:35 Troponin I High Sens 5.5 pg/ml (0-14) 12/30/23 12:35 Total Protein 7.7 gm/dl (6.0-8.3) 12/30/23 12:35 Albumin 4.5 gm/dl (3.4-5.0) 12/30/23 12:35 Procalcitonin 0.09 ng/ml (0-0.5) 12/30/23 12:35 TSH 1.030 uIu/ml (0.300-4.500) 12/31/23 05:42 Urine Color Yellow 12/30/23 Unknown Urine Appearance Clear (Clear) 12/30/23 Unknown Urine pH 7.0 (4.5-7.5) 12/30/23 Unknown Ur Specific [place] 1.018 (1.000-1.030) 12/30/23 Unknown Urine Protein 1+ (Negative) H 12/30/23 Unknown Urine Glucose (UA) Negative (Negative) 12/30/23 Unknown Urine Ketones 2+ (Negative) H 12/30/23 Unknown Urine Blood Negative (Negative) 12/30/23 Unknown Urine Nitrite Negative (Negative) 12/30/23 Unknown Urine Bilirubin Negative (Negative) 12/30/23 Unknown Urine Urobilinogen Negative (Negative) 12/30/23 Unknown Ur Leukocyte Esterase Negative (Negative) 12/30/23 Unknown Urine WBC (Auto) 1-5 /hpf (0-5) 12/30/23 Unknown Urine RBC (Auto) 10-30 /hpf (0-4) H 12/30/23 Unknown U Hyaline Cast (Auto) 1-5 /lpf (0-5) 12/30/23 Unknown U Epithel Cells (Auto) 20-30 /lpf (0-5) H 12/30/23 Unknown Urine Bacteria (Auto) Negative (Negative) 12/30/23 Unknown Adenovirus (PCR) Not Detected (NotDetected) 12/30/23 12:36 Anaplasma Smear See Comment 12/30/23 12:35 A. phagocytophilum DNA Negative (Negative) 12/30/23 14:34 Babesia Smear See Comment 12/30/23 12:35 Babesia microti DNA PCR Not Detected (Not Detected) 12/30/23 12:35 B. pertussis DNA (PCR) Not Detected (NotDetected) 12/30/23 12:36 B.parapertussis DNA PCR Not Detected (NotDetected) 12/30/23 12:36 Lyme Disease Screen Cancelled 12/30/23 12:35 Lyme Disease Screen Negative (Negative) 12/30/23 12:35 C. pneumoniae DNA (PCR) Not Detected (NotDetected) 12/30/23 12:36 Coronavirus OC43 (PCR) Not Detected (NotDetected) 12/30/23 12:36 Coronavirus HKU1 (PCR) Not Detected (NotDetected) 12/30/23 12:36 Coronavirus 229E (PCR) Not Detected (NotDetected) 12/30/23 12:36 SARS-CoV-2 (PCR) Not Detected (NotDetected) 12/30/23 12:36 Coronavirus NL63 (PCR) Not Detected (NotDetected) 12/30/23 12:36 E.chaffeensis DNA (PCR) Negative (Negative) 12/30/23 14:34 Human Metapneumovir PCR DETECTED (NotDetected) A 12/30/23 12:36 Influenza Type A (PCR) Not Detected (NotDetected) 12/30/23 12:36 Influenza Type B (PCR) Not Detected (NotDetected) 12/30/23 12:36 M. pneumoniae (PCR) Not Detected (NotDetected) 12/30/23 12:36 Parainfluenza 1 (PCR) Not Detected (NotDetected) 12/30/23 12:36 Parainfluenza 2 (PCR) Not Detected (NotDetected) 12/30/23 12:36 Parainfluenza 3 (PCR) Not Detected (NotDetected) 12/30/23 12:36 Parainfluenza 4 (PCR) Not Detected (NotDetected) 12/30/23 12:36 RSV (PCR) Not Detected (NotDetected) 12/30/23 12:36 Entero/Rhino (PCR) Not Detected (NotDetected) 12/30/23 12:36 Misc Micro Test Cancelled 12/31/23 Unknown Impressions Abdomen/Pelvis CT 12/30/23 13:[address] WITH IV CONTRAST CT DOSE: 1061.48 mGy.cm HISTORY: Nausea. Vomiting. Abdominal pain. TECHNIQUE: Multiaxial CT images of the abdomen and pelvis were performed following the use of intravenous contrast. A dose lowering technique was utilized adhering to the principles of ALARA. COMPARISON STUDY: Abdomen and pelvis CT 03/11/2013. FINDINGS: There is a 5 mm nodule within the right lower lobe on image 48. Mild dependent changes seen within the lung bases. There is a 4 mm nodule within the left lower lobe on image 13. No pneumoperitoneum. No pneumatosis. No acute fractures identified. A few opacified left lower lobe bronchi. Mild circumferential thickening of the distal esophagus. A few subcentimeter hypodense lesions within the left hepatic lobe are technically too small to c haracterize but favor cysts. The main portal vein is patent. The gallbladder, pancreas, spleen, and adrenal glands are unremarkable. There are few subcentimeter hypodense lesions within the left kidney which are also too small to characterize but favor cysts. The right kidney enhances normally. No hydronephrosis. Mild calcified plaque within the normal caliber abdominal aorta. No retroperitoneal or pelvic lymphadenopathy. No pelvic free fluid. Distended bladder. No bladder wall thickening. Prior hysterectomy. Colonic diverticulosis. No evidence for acute diverticulitis. No bowel wall thickening or obstruction. Normal appendix. IMPRESSION: 1. No bowel wall thickening or obstruction. 2. Colonic diverticulosis. No evidence for acute diverticulitis. 3. Normal appendix. 4. No hydronephrosis. 5. Bilateral lower lobe subcentimeter nodules with the largest on the right measuring 5 mm. Please refer to the chart below for recommended follow-up. 6. Mild circumferential thickening of the distal esophagus. This suggests a mild esophagitis. 7. Distended bladder. Please refer to below summary of Fleischner criteria recommendations for follow- up of incidental CT nodules (Flor Young, Guidelines for management of small pulmonary nodules detected on CT scans: A statement from the Fleischner Society, Radiology 237: [id number].) SOLID NODULES Solitary nodule size: <6 mm * Low risk patients: no follow-up needed * high risk patients: optional CT at 12 months Solitary nodule size: 6-8 mm * Low risk patients: follow-up at 6-12 months, then consider further follow-up at 18-24 months * high risk patients: initial follow-up CT at 6-12 months and then at 18-24 months if no change Solitary nodule size: >8 mm * either low or high risk patients - consider follow-up CT at 3 months, and/or CT-PET, and/or biopsy Multiple nodules size: <6 mm * Low risk patients: no routine follow-up * high risk patients: optional CT at 12 months Multiple nodules size: 6-8 mm * Low risk patients: follow-up at 3-6 months, then consider further follow-up at 18-24 months * high risk patients: follow-up at 3-6 months, then at 18-24 months if no change Multiple nodules size: >8 mm * Low risk patients: follow-up at 3-6 months, then consider further follow-up at 18-24 months * high risk patients: follow-up at 3-6 months, then at 18-24 months if no change Note: newly detected indeterminate nodule in persons 35 years of age or older. * Low risk patients: minimal or absent history of smoking and/or other known risk factors * high risk patients: history of smoking or of other known risk factors (e.g. first degree relative with lung cancer, or exposure to asbestos, radon, uranium) * if a nodule up to 8 mm is partly solid or is ground glass further follow-up i s required after 24 months to exclude possible slow growing adenocarcinoma (EMANUEL) SUBSOLID NODULES Solitary pure ground-glass nodule * nodule size <6 mm - no CT follow-up required * nodule size >=6 mm - follow-up CT at 6-12 months, then every 2 years until 5 years Solitary part-solid nodule * nodule size <6 mm - no CT follow-up required * nodule size >=6 mm - follow-up CT at 3-6 months. If unchanged, and solid component remains <6 mm, then annual follow-up for 5 years Multiple subsolid nodules * nodule size <6 mm - follow-up CT at 3-6 months, consider further follow-up at 2 and 4 years if stable * nodule size >=6 mm - follow-up CT at 3-6 months, subsequent management based on the most suspicious nodule(s) ACT 112: Positive. There are findings on this exam that require communication between the performing entity and the patient following Patient Test Result Information Act ([place] Act 112) guidelines. Electronically signed by: Ray Rosado M.D. 12/30/2023 2:[address] 12/30/23 13:[address] DOSE: HISTORY: Headache. Nausea. Vomiting. TECHNIQUE: Multiaxial CT images of the head were performed without the use of intravenous contrast. Automated exposure control was utilized for this study. A dose lowering technique was utilized adhering to the principles of ALARA. Comparison: Head CT 04/01/2023. Findings: The paranasal sinuses and mastoid air cells are clear. The calvarium and skull base are intact. There is no mass, hematoma, midline shift, acute infarct. White matter hypodensity is nonspecific but suggestive of microvascular ischemic change. The ventricles and sulci demonstrate mild age-related involutional changes. Impression: No acute intracranial abnormality. Atrophy and microvascular ischemic changes. ACT 112: Negative or not required by law. Electronically signed by: Ray Rosado M.D. 12/30/2023 2:03 PM Chest CTA 12/30/23 14:42 CT ANGIOGRAM OF THE CHEST CLINICAL HISTORY: Sepsis. Nausea and vomiting. COMPARISON STUDY: Chest x-ray dated 12/30/2023. Chest CT dated 03/11/2013. TECHNIQUE: Following the IV administration of 119 cc of Optiray 320, CT angiogram of the chest was performed from the upper abdomen to the thoracic inlet utilizing the pulmonary embolus protocol. Images are reviewed in the axial, sagittal, and coronal planes. 3-D MIPS images are created and assessed. IV contrast was administered without complication. A dose lowering technique was utilized adhering to the principles of ALARA. CT DOSE: 268.58 mGy.cm FINDINGS: Thyroid: Imaged portions of the thyroid gland are normal in size and attenuation. Thoracic aorta: The thoracic aorta is normal in caliber and demonstrates standard 3-vessel arch anatomy. No dissection is seen. Pulmonary vasculature: The pulmonary trunk is normal in caliber. There are no filling defects identified in main, lobar, or segmental pulmonary branches to suggest pulmonary embolus. Heart: The heart is normal in size and without pericardial effusion. Lungs and pleural spaces: There is no airspace consolidation typical for pneumonia or pleural effusion. Diffuse peribronchial thickening is observed, with foci of mucus plugging in the lower lobes. Scarring/atelectasis is seen at the lung bases. The trachea and central airways are clear. A 6 cm right lower lobe pulmonary nodule on image #68 is pathologically indeterminant and new from 2013. Mediastinum: There is no mediastinal lymphadenopathy. Dariana: Clear. Axillae: There is no axillary lymphadenopathy. Upper abdomen: Partially visualized upper abdominal viscera is within normal limits. Skeletal structures: The skeletal structures are osteopenic. Degenerative change is noted in the shoulders and spine. There are chronic/healed bilateral rib fractures. Minimal chronic superior endplate compression deformities are seen in the upper thoracic region. No lytic or blastic bony lesions are seen. IMPRESSION: 1. There is no evidence of pulmonary embolus in the main, lobar, or segmental pulmonary arteries. 2. There is no airspace consolidation or pleural effusion. 3. A 6 mm right lower lobe pulmonary nodule is pathologically indeterminant and new from 2013. Follow-up is recommended as per the Fleischner criteria. See below. 4. Additional findings as above. Please refer to below summary of Fleischner criteria recommendations for follow- up of incidental CT nodules (Flor Young, Guidelines for management of small pulmonary nodules detected on CT scans: A statement from the Fleischner Society, Radiology 237: [phone].) SOLID NODULES Solitary nodule size: <6 mm * low risk patients: no follow-up needed * high risk patients: optional CT at 12 months Solitary nodule size: 6-8 mm * low risk patients: follow-up at 6-12 months, then consider further follow-up at 18-24 months * high risk patients: initial follow-up CT at 6-12 months and then at 18-24 months if no change Solitary nodule size: >8 mm * either low or high risk patients - consider follow-up CT at 3 months, and/or CT-PET, and/or biopsy Multiple nodules size: <6 mm * low risk patients: no routine follow-up * high risk patients: optional CT at 12 months Multiple nodules size: 6-8 mm * low risk patients: follow-up at 3-6 months, then consider further follow-up at 18-24 months * high risk patients: follow-up at 3-6 months, then at 18-24 months if no change Multiple nodules size: >8 mm * low risk patients: follow-up at 3-6 months, then consider further follow-up at 18-24 months * high risk patients: follow-up at 3-6 months, then at 18-24 months if no change Note: newly detected indeterminate nodule in persons 35 years of age or older. * low risk patients: minimal or absent history of smoking and/or other known risk factors * high risk patients: history of smoking or of other known risk factors (e.g. first degree relative with lung cancer, or exposure to asbestos, radon, uranium) * if a nodule up to 8 mm is partly solid or is ground glass further follow-up is required after 24 months to exclude possible slow growing adenocarcinoma ( EMANUEL) SUBSOLID NODULES Solitary pure ground-glass nodule * nodule size <6 mm - no CT follow-up required * nodule size >=6 mm - follow-up CT at 6-12 months, then every 2 years until 5 years Solitary part-solid nodule * nodule size <6 mm - no CT follow-up required * nodule size >=6 mm - follow-up CT at 3-6 months. If unchanged, and solid component remains <6 mm, then annual follow-up for 5 years Multiple subsolid nodules * nodule size <6 mm - follow-up CT at 3-6 months, consider further follow-up at 2 and 4 years if stable * nodule size >=6 mm - follow-up CT at 3-6 months, subsequent management based on the most suspicious nodule(s) ACT 112: Negative or not required by law. Electronically signed by: Virgilio Anderson M.D. 12/30/2023 4:49 PM Chest X-Ray 01/02/24 09:07 XR chest 1V portable CLINICAL HISTORY: ff up, hypoxia TECHNIQUE: Single frontal radiograph of the chest was obtained. Comparison: Comparison is made to chest radiograph 12/20/2023 FINDINGS: No lines and tubes are seen. Cardiomegaly is noted. Prominence and cephalization of the vasculature is seen. Right lower lung airspace opacity is seen. No evide nce of pleural effusion or pneumothorax. IMPRESSION: Right lower lung airspace opacity. This may represent atelectasis, pneumonia, and/or aspiration. Prominence of the pulmonary vasculature is seen. ACT 112: Negative or not required by law. Electronically signed by: Aleksey Kapoor M.D. 01/02/2024 7:28 PM Discharge Instructions Given to Patient (Per Discharging Provider) PLEASE REFER TO YOUR NEW MEDICATION LIST AND FOLLOW INSTRUCTIONS CAREFULLY. YOUR NEW MEDICATIONS INCLUDE: Cefdinir-antibiotic for pneumonia Mucinex-for cough Flonase-for nasal drainage Nystatin-for oral thrush Potassium supplement Drink plenty of fluids. Take a probiotic daily for at least 1 month. PLEASE CALL YOUR PRIMARY CARE PHYSICIAN OR RETURN TO THE ER IF WITH WORSENING OF SYMPTOMS, INCLUDING Shortness of breath, cough, fevers or chills, weakness, poor appetite, etc. FOLLOW UP WITH PRIMARY CARE PHYSICIAN OUTLINED ABOVE. Total Time Total Time Spent Total Time Spent (In Minutes): >30 minutes
[2024-01-08 00:27] LABS: Q Fever IgG, Phase I POSITIVE; Q Fever Phase I IgM Antibody POSITIVE; Q Fever Phase II IgG Antibody POSITIVE; Q Fever Phase II IgM Antibody NEGATIVE; R. typhi IgG Ab NOT DETECTED; R. typhi IgM Ab NOT DETECTED; RMSF IgG Ab NOT DETECTED; RMSF IgM Ab NOT DETECTED
== END 2024-01-05 16:38 | disposition home or self-care (01) | DRG 202 ==
LOC: ED 12:21 → SUATTDRO 17:03 → EDINP 17:03 → 2N 21:50